=== PATIENT | male | born 1955 | race Caucasian/White ===

== ENCOUNTER 2019-03-16 13:13 | Inpatient (IN) | payer MEDICARE ==
--- NOTE | ~2019-03-16 | HEMODYNAMI ---
PATIENT:REED COX MEDICAL RECORD: [id number] : 55 LOCATION:[facility] D.2126 ADMISSION DATE: 03/16/19 Generatedon:03/21/20199:46 Patient name: REED COX Patient #: [id number] SSN: D OB: 1955 Date of study: 03/21/2019 Page: Of Hemodynamic Procedure Report Patient Data Patient Demographics Procedure consent was obtained First Name: REED Gender: Male Last Name: KENNY : 1955 Middle Initial: PRATIMA Age: 63 year(s) Patient #: [id number] Race: Unknown Additional ID: [id number] Contact details [address]: [address] [place] [address] [place] State: [place] City: [place] Zip code: [address] Admission Admission Data Admission Date: 03/16/2019 Admission Time: 13:13 Room #: D.2126 Weight (lbs.): 363.76 Weight (kg.): 165 Lab Results Lab Result Date: 03/21/2019 Lab Result Time: 0:00 Biochemistry Name Units Result Min Max BUN mg/dl 19 --(----)*- 7 18 Creatinine mg/dl 1.1 --(--*-)-- 0.6 1.3 CBC Name Units Result Min Max Hemoglobin g/dl 13.9 --(*---)-- 13.5 17.5 Procedure Procedure Types Cath Procedure Diagnostic Procedure LHC LHC w/Coronaries w/Grafts Procedure Description Procedure Date Procedure Date: 03/21/2019 Procedure Start Time: 9:25 Procedure End Time: 9:43 Procedure Staff Name Function Dylan Quigley MD Performing Physician Kashmir Ho RT Monitor Gilmar Black RN Nurse Rajinder Enrique RN Nurse Israel Koroma RT Scrub Procedure Data Cath Procedure Fluoroscopy Diagnostic fluoroscopy Total fluoroscopy Time: 5.2 time: 5.2 min min Diagnostic fluoroscopy Total fluoroscopy dose: dose: 1411 mGy 1411 mGy Contrast Material Contrast Material Type Amount (ml) Isovue 300 138 Entry Location Entry Primary Successful Side Size Upsize Upsize Entry Closure Succes sful Closure Location (Fr) 1 (Fr) 2 (Fr) Remarks Device Remarks Femoral Right 5 Fr Exoseal artery Estimated blood loss: 10 ml Diagnostic catheters Device Type Used For End Catheter Placement DIAGNOSTIC JL 4.0 5Fr Procedure catheter ([id number]) DIAGNOSTIC AR MOD 5Fr Procedure Catheter ([id number]) DIAGNOSTIC IM 5Fr Procedure catheter ([id number]) DIAGNOSTIC Pigtail 5Fr Procedure catheter ([id number]) Procedure Complications No complications Procedure Medications Medication Administration Route Dosage 0.9% NaCl I.V. 100 ml/hr Oxygen etCO2 Nasal cannula 2 l/min Heparin Flush Bag added to field 2 bags (1000units/500ml NS) Lidocaine 2% added to field 20 Versed I.V. 2 mg Fentanyl I.V. 100 mcg Hemodynamics Rest HGB: 13.9 (g/dl) Heart Rate: 61 (bpm) Pressure Samples Time Site Value (mmHg) Purpose Heart Use Rate(bpm) 9:35 AO 115/65(86) Snapshot 61 9:39 LV 128/12,36 Snapshot 61 Gradients Valve Time Site Site Mean SEP/DFP Peak To Heart Use 1 2 (mmHg) (sec/min) Peak Rate (mmHg) (bpm) Aortic 9:40 LV AO 61 Snapshots Pre Cath Intra NCS Post Cath Vital Signs Time Heart Resp SPO2 etCO2 NIBP (mmHg) Rhythm Pain Sedation Rate (ipm) (%) (mmHg) Status Level (bpm) 9:12:50 61 21 92 0 140/75(115) NSR 0 (11) 10(A) , No pain 9:17:18 61 19 91 0 125/71(108) NSR 0 (11) 10(A) , No pain 9:21:40 60 16 90 0 112/67(90) NSR 0 (11) 10(A) , No pain 9:25:58 60 14 89 0 113/65(85) NSR 0 (11) 10(A) , No pain 9:30:16 61 16 90 0 117/68(92) NSR 0 (11) 9(A) , No pain 9:34:37 61 21 91 0 122/69(94) NSR 0 (11) 9(A) , No pain 9:38:58 61 15 91 0 122/69(94) NSR 0 (11) 9(A) , No pain 9:43:19 61 18 91 0 125/71(103) NSR 0 (11) 10(A) , No pain Medications Time Medication Route Dose Verified Delivered Reason Notes Effe ctiveness by by 9:13:57 0.9% NaCl I.V. 100 Rajinder Rajinder Per ml/hr Iva Enrique physician RN RN 9:14:07 Oxygen etCO2 2 Rajinder Rajinder for low 02 Nasal l/min Lorigan Lorigan sats cannula RN RN 9:14:23 Heparin Flush added 2 Rajinder Rajinder used for Bag to bags Lorigan Lorigan procedure (1000units/500ml field RN RN NS) 9:14:47 Lidocaine 2% added 20ml Rajinder Rajinder for local to vial Lorigan Lorigan anesthetic field RN RN 9:19:22 Versed I.V. 2 mg Rajinder Rajinder for Lorigan Lorigan sedation RN RN 9:19:30 Fentanyl I.V. 100 Rajinder Rajinder for mcg Lorigan Lorigan sedation RN ammunition assembly ii laborer Log Time Note 8:45:54 Kashmir Ho RT(R) sent for patient. Start room use. 9:01:55 Time tracking: Regular hours (M-F 7:00 - 5:00) 9:01:59 Plan of Care:Hemodynamics will remain stable., Cardiac rhythm will remain stable., Comfort level will be maintained., Respiratory function will remain adequate., Patient/ family verbilizes understanding of procedure., Procedure tolerated without complication., Recovers from procedure without complications.. 9:02:26 Patient received from PCU to CCL 2 Alert and oriented. Tansferred to table in Supine position. 9:02:28 Warm blankets applied, and zoya hugger turned on for patient comfort. 9:02:28 Correct patient and procedure confirmed by team. 9::29 Signed procedure consent form obtained from patient. 9:02:30 ECG and BP/O2 sat monitors applied to patient. 9:11:29 Vital chart was started 9:11:30 Baseline sample Acquired. 9:12:06 Rhythm: sinus rhythm 9:12:08 Full Disclosure recording started 9:12:30 H&P Date Dictated: 03/21/2019 Within 30 days and on chart., H&P Addendum completed by physician on day of procedure. (MUST COMPLETE FOR ALL OUTPATIENTS). 9:12:31 Pre-procedure instructions explained to patient. 9:12:32 Pre-op teaching completed and patient verbalized understanding. 9:12:34 Family in patients room. 9:12:37 Patient NPO since Midnight. 9:12:38 Is the patient allergic to Iodine/contrast media? No. 9:12:41 Is patient on blood thinner?No 9:12:43 Patient diabetic? Yes. 9:12:44 If diabetic: On Metformin? No 9:12:47 Previous problem with sedation/anesthesia? No ? 9:12:48 Snore? Yes 9:12:49 Sleep apnea? Yes 9:12:50 Deviated septum? No 9:12:51 Opens mouth fully? Yes 9:12:52 Sticks out tongue? Yes 9:12:53 Airway obstruction? No ? 9:12:55 Dentures? No ? 9:12:59 Pre procedure: right dorsailis pedis pulse 1+ Palpable, but thready & weak; easily obliterated 9:13:01 Patient pain scale 0/10 ?. 9:13:04 IV patent on arrival in right forearm with 0.9% NaCl at [facility]. 9:13:07 Lab results completed and on chart. 9:13:11 Right groin area was prepped with chlora-prep and draped in sterile fashion 9:13:12 Alarms reviewed by R. N. 9:13:12 Sharps counted by scrub and verified by R.N. 9:13:57 0.9% NaCl 100 ml/hr I.V. was administered by Rajinder Enrique RN; Per physician; 9:14:07 Oxygen 2 l/min etCO2 Nasal cannula was administered by Rajinder Enrique RN; for low 02 sats; 9:14:16 Patient Weight : 363.76 lbs 9:14:23 Heparin Flush Bag (1000units/500ml NS) 2 bags added to field was administered by Rajinder Enrique RN; used for procedure; 9:14:47 Lidocaine 2% 20ml vial added to field was administered by Rajinder Enrique RN; for local anesthetic; 9:14:50 Lab Result : BUN 19 mg/dl 9:14:50 Lab Result : Hemoglobin 13.9 g/dl 9:14:50 Lab Result : Creatinine 1.1 mg/dl 9:16:32 Use device set Femoral Dx 9:16:34 Tegaderm 4 x 4 (1626W) opened to sterile field. 9:16:35 ACIST Manifold (39621) opened to sterile field. 9:16:35 ACIST Hand Control (53697) opened to sterile field. 9:16:37 ACIST Syringe (19649) opened to sterile field. 9:16:37 Bag Decanter (2002S) opened to sterile field. 9:16:37 Medline Cath Pack ([id number]) opened to sterile field. 9:16:38 DIAGNOSTIC WIRE .035 260cm J wire (324586) opened to sterile field. 9:16:41 SHEATH 5FR [place] (HDQ072) opened to sterile field. 9:18:52 --------ALL STOP TIME OUT------ 9:18:53 Final Timeout: patient, procedure, and site verified with staff and physician. All members of the team are in agreement. 9:18:55 Right groin site verified by team. 9:18:58 Maximum allowable Isovue 300 dose 300ml. Physician notified. (300ml for normal creatinines. For patients with creatinine of 1.7 or higher multiply weight(kg) x 5 divided by creatinine.) 9:19:02 Fire Safety Assessment: A--An alcohol-based skin anteseptic being used preoperatively., C--Open oxygen or nitrous oxide is being used., D--An ESU, laser, or fiber-optic light is being used. 9:19:05 Physical assessment completed. ASA score P 2 - A patient with mild systemic disease as per Dylan Quigley MD. 9:19:09 Sedation plan: IV Moderate Sedation Medication:Versed, Fentanyl 9:19:22 Versed 2 mg I.V. was administered by Rajinder Enrique RN; for sedation; 9:19:30 Fentanyl 100 mcg I.V. was administered by Rajinder Enrique RN; for sedation; 9:25:25 Procedure started. 9:25:28 Local anesthetic to right femoral artery with Lidocaine 2% by Dylan Quigley MD.INITIAL ACCESS ONLY 9:25:31 Zero performed for pressure channel P1 9:27:52 A 5 Fr sheath was inserted into the Right Femoral artery 9:28:04 A DIAGNOSTIC JL 4.0 5Fr catheter ([id number]) was advanced over the wire and used for Procedure. 9:28:30 LCA angiography performed. 9:29:31 Catheter exchanged over wire. 9:29:40 A DIAGNOSTIC AR MOD 5Fr Catheter ([id number]) was advanced over the wire and used for Procedure. 9:31:24 RCA angiography performed. 9:31:26 SVG to RCA angiography performed. 9:32:19 SVG to Circ angiography performed. 9:32:59 Catheter exchanged over wire. 9:33:04 A DIAGNOSTIC IM 5Fr catheter ([id number]) was advanced over the wire and used for Procedure. 9:35:03 GLIDE WIRE ANGLE 260cm (BD5793) opened to sterile field. 9:35:31 Glidewire used to advance catheter. 9:35:47 SMART to LAD angiography performed. 9:38:56 Catheter exchanged over wire. 9:39:02 A DIAGNOSTIC Pigtail 5Fr catheter ([id number]) was advanced over the wire and used for Procedure. 9:39:50 LV angiography performed. 9:39:51 LV gram done using MCDANIELS 9:40:08 EF : 35 % 9:40:35 LV hemodynamics recorded. 9:40:38 Injector settings: Ml/sec: 10, Volume: 20, 9:41:16 Catheter removed. 9:41:17 EXOSEAL 5Fr (EX500) opened to sterile field. 9:41:28 Sheath removed intact; hemostasis achieved with Exoseal to the Right Femoral artery. 9:41:31 Procedure ended.(Physican Out) 9:41:42 Fluoroscopy time 05.20 minutes. 9:41:46 Fluoroscopy dose: 1411 mGy 9:41:46 Flurop Dose total: 1411 9:41:50 Contrast amount:Isovue 300 138ml. 9:42:41 Sharps counted by scrub and verified by R.N. 9:42:42 Insertion/operative site no bleeding no hematoma. 9:42:46 Post-op/insertion site Right Femoral artery dressed using a 4 x 4 and Tegaderm. 9:42:47 Post Procedure Pulses reassessed and unchanged 9:42:50 Post-procedure physical assessment completed. ASA score P 2 - A patient with mild systemic disease as per Dylan Quigley MD. 9:42:53 Post procedure rhythm: unchanged. 9:42:55 Estimated blood loss: 10 ml 9:42:57 Post procedure instruction explained to patient.Patient verbalizes understanding. 9:42:57 Patient needs reinforcement of post procedure teaching. 9:43:04 Procedure and supply charges have been captured, reviewed, submitted and are correct. 9:43:06 Procedure Complication : No complications 9:43:27 Vital chart was stopped 9:43:27 See physician's report for complete and final results. 9:43:31 Report given to PCU. 9:43:33 Patient transfered to PCU with Bed. 9:43:35 Procedure ended. 9:43:35 Full Disclosure recording stopped 9:45:34 End room use (Document Last) Device Usage Item Name Manufacture Quantity Catalog Hospital Part Current Minimal L ot# / Number Charge Number Stock Stock Serial# Code Tegaderm 4 3M 1 1626W 523607 687739 289025 5 x 4 (1626W) ACIST Acist 1 97845 734314 400330 593035 5 Manifold Medical (00674) Systems Inc ACIST Hand Acist 1 17721 528159 023494 244624 5 Control Medical (47855) Systems Inc ACIST Acist 1 18826 893252 338430 415567 20 Syringe Medical (05205) Systems Inc Bag Microtek 1 2001S 635857 26391 644059 5 Decanter Medical Inc. () Medline Medline 1 [id number] 511720 05048 169638 5 Cath Pack ([id number]) DIAGNOSTIC St Miles 1 192276 234150 881735 525453 30 WIRE .035 260cm J wire (051696) SHEATH 5FR Terumo 1 CTX157 041170 886873 555990 5 [place] (PWY465) DIAGNOSTIC Cardinal 1 377875F 527147 470242 267652 10 JL 4.0 5Fr Health catheter (862580E) DIAGNOSTIC Cardinal 1 875385H 801160 725269 824953 15 AR MOD 5Fr Health Catheter (234170R) DIAGNOSTIC Cardinal 1 544162O 426544 381806 353577 5 IM 5Fr Health catheter (452965C) GLIDE WIRE Terumo 1 DE4406 838670 275121 227336 5 ANGLE 260cm (GL0502) DIAGNOSTIC Cardinal 1 093732H 474273 263122 414048 5 Pigtail 5Fr Health catheter (751159I) EXOSEAL 5Fr Cardinal 1 EX500 843608 864550 477562 10 (EX500) Health Signature Audit [place] Stage Time Signature Unsigned Intra-Procedure 03/21/2019 Kashmir Ho 9:46:06 AM RT(R) Signatures Monitor : Kashmir Ho RT Signature : Date : Time : [address] [place] [address]
--- NOTE | ~2019-03-16 | HEMODYNAMI ---
PATIENT:REED COX MEDICAL RECORD: [id number] : 55 LOCATION:[facility].2126 ADMISSION DATE: 03/16/19 Generatedon:03/17/201910:29 Patient name: REED COX Patient #: [id number] SSN: : 1955 Date of study: Page: Of Hemodynamic Procedure Report Patient Data Patient Demographics Procedure consent was obtained First Name: REED Gender: Male Last Name: KENNY : 1955 [facility] Initial: PRATIMA Age: 63 year(s) Patient #: [id number] Race: Unknown Additional ID: [id number] Contact details Address: [address] [place] [address] [place] State: [place] City: [place] Zip code: [address] Admission Admission Data Admission Date: 03/16/2019 Admission Time: 13:13 Room #: D.2126 Procedure Procedure Types Cath Procedure Diagnostic Procedure LHC LHC w/Coronaries Procedure Description Procedure Staff Name Function Dylan Quigley MD Performing Physician Kashmir Ho RT Monitor Latisha Rocha RT Scrub Gayla Powell RN Nurse Hemodynamics Rest Pre Cath Intra NCS Post Cath Procedure Log Time Note 9:53:32 Signed procedure consent form obtained from patient. 9:53:35 Diagnostic Cath status Urgent 9:53:36 Time tracking: Regular hours (M-F 7:00 - 5:00) 9:53:42 Plan of Care:Hemodynamics will remain stable., Cardiac rhythm will remain stable., Comfort level will be maintained., Respiratory function will remain adequate., Patient/ family verbilizes understanding of procedure., Procedure tolerated without complication., Recovers from procedure without complications.. 9:54:28 Latisha Rocha RT(R) sent for patient. Start room use. 10:29:28 PATIENT CANCELLED UNTIL FURTHER NOTICE. Signature Audit [place] Stage Time Signature Unsigned Intra-Procedure 03/17/2019 Latisha Rocha 10:29:38 AM RT(R) Signatures Monitor : Kashmir Ho RT Signature : Date : Time : [address] [address]
--- NOTE | 2019-03-16 13:31 | NUR ---
DIRECT ADMIT FROM DR PANIAGUA OFFICE DUE TO INCREASING SHORTNESS OF BREATH, CXR RESULT IN OFFICE SHOWED PULMONARY EDEMA. HE WAS SHORT OF BREATH UPON ENTERING THE ROOM DUE TO AMBULATING. HIS IS WITH HIM. HE IS ALERT AND ABLE TO ANSWER ALL QUESTIONS. O2 AT 2L PER MINUTE WAS PLACED ON HIM DUE TO SYMPTOMS AND O2 SAT OF 93% ON ROOM AIR. NON-SKID SOCKS PLACED ON HIM BUT HE DOES REFUSE THE SCD'S. ORIENT TO USE OF CL. BBS ARE DIMINISHED WITH SOME EXP. WHEEZES AT TIMES. DR RODRIGUEZ CAME BY TO SEE HIM.
[2019-03-16 14:00] VITALS: BP 180/98; BMI 51.5
--- NOTE | 2019-03-16 14:00 | NUR ---
PLACED ON TELEMENTRY WITH NORMAL SINUS RHYTHM IN 70'S. IV STARTED IN TOP OF RIGHT HAND WITH 20 GUAGE X1 STICK FLUSHES WELL WITH GOOD BLOOD RETURN NOTED AND TOLERATED WELL. HE IS COUGHING SOME BUT SHORTNESS OF BREATH HAS IMPROVED AND IS CURRENTLY EATING A MEAL.
[2019-03-16 14:29] LABS: BASOPHILS 0.5 % (0-2); EOSINOPHILS 3.4 % (0-7); HEMATOCRIT 41.9 % (42.0-54.0); HEMOGLOBIN 14.1 g/dL (13.5-17.5); IMMATURE GRANULOCYTES 0.3 % (0-5); LYMPHOCYTES 17.8 % (15-50); MCHC 33.7 g/dL (31.0-37.0); MONOCYTES 5.9 % (2-11); NEUTROPHILS 72.1 % (40-80); PLATELET COUNT 146 10x3/uL (130-400); RBC 4.03 10x6/uL (4.20-6.10); RDW 16.6 % (11.5-14.5); WBC 5.8 10x3/uL (4.8-10.8)
[2019-03-16 14:44] LABS: ALBUMIN 3.4 g/dL (3.4-5.0); ALKALINE PHOSPHATASE 66 U/L (46-116); ALT (SGPT) 41 U/L (10-68); BILIRUBIN - TOTAL 0.62 mg/dL (0.2-1.3); CALC OSMOLALITY 282 mosm/kg (275-300); CALCIUM 8.3 mg/dL (8.5-10.1); CARBON DIOXIDE 23.7 mmol/L (21.0-32.0); CHLORIDE - SERUM 107 mmol/L (98-107); CREATININE - SERUM 1.1 mg/dL (0.6-1.3); GLUCOSE 103 mg/dL (74-106); POTASSIUM - SERUM 3.5 mmol/L (3.5-5.1); PRO BNP 730 pg/mL (0-125); PROTEIN - SERUM 6.9 g/dL (6.4-8.2); SODIUM 142 mmol/L (136-145); UREA NITROGEN 12 mg/dL (7-18); eGFR NON AFRICAN AMERICAN 72 mL/min (90-120)
[2019-03-16 14:45] LABS: TROPONIN-I < 0.017 ng/mL (0.000-0.060)
[2019-03-16] MEDS ORDERED: KLONOPIN0.5 MG PO (15:21)
[2019-03-16] MEDS ORDERED: BUMEX2 MG PO (15:22)
[2019-03-16 16:13] VITALS: BP 135/68
[2019-03-16] MEDS ORDERED: LYRICA150 MG PO (16:44)
[2019-03-16] MEDS ORDERED: COREG25 MG PO (16:45)
[2019-03-16] MEDS ORDERED: PLAVIX75 MG PO (16:46)
[2019-03-16] MEDS ORDERED: ZOLOFT25 MG PO (16:46)
[2019-03-16] MEDS ORDERED: AMIODARONE HCL200 MG PO (16:47)
[2019-03-16] MEDS ORDERED: GLUCOTROL 5 MG T5 MG PO (16:47)
[2019-03-16] MEDS ORDERED: LISINOPRIL-HCT1 EAC4 PO (16:49)
[2019-03-16] MEDS ORDERED: OMEPRAZOLE40 MG PO (16:49)
[2019-03-16] MEDS ORDERED: LIPITOR40 MG PO (16:50)
[2019-03-16] MEDS ORDERED: TYLENOL W/CODEI1 TAB PO (16:59)
[2019-03-16] MEDS ORDERED: ASPIRIN81 MG PO (17:00)
[2019-03-16] MEDS ORDERED: BUTALB-APAP-CA1 EACH PO (17:01)
[2019-03-16] MEDS ORDERED: POTASSIUM99 M1 PO (17:03)
--- NOTE | 2019-03-16 19:10 | NUR ---
PT LAYING IN BED. AAO. HAS O2 AT 2L FOR DYSPNEA. PT STATES IT IS NOT BAD UNLESS HE MOVES. PT HAS NO S/S OF DISTRESS. DENIES ANY NEEDS. NAME AND DATE PLACED ON BOARD. PT WILL CALL FOR ASSIST WHEN NEEDED. WILL CPOC
[2019-03-16 21:27] VITALS: BP 179/81
[2019-03-16 23:26] VITALS: BP 171/86
--- NOTE | 2019-03-17 02:46 | NUR ---
PT ASLEEP, RESP EVEN AND UNLABORED. 2L O2 NC. NO S/S OF DISTRESS. WILL CPOC
--- NOTE | 2019-03-17 05:06 | NUR ---
PT O2 SAT IS 86 ON 2L, INCREASED TO 4L O2 [address] CORTES AND INFORMED OF PT STATUS DR ORDERED DUONEB Q4H PRN. INFORMED OF HYPERTENSION AND INCREASED WHEEZES IN LUNGS. STATED NO ORDER FOR HTN OR WHEEZES. INFORMED DR CORTES OF D DIMER RESULT. ONLY ORDER RECEIVED DUONEB. PLACED ORDER AND CALLED RESP
--- NOTE | 2019-03-17 05:09 | NUR ---
PT ON 6L HIGH FLOW AT 94% PT NOW SITTING ON SIDE OF BED. WAITING FOR RESP.
[2019-03-17 05:32] VITALS: BP 198/104
--- NOTE | 2019-03-17 07:40 | NUR ---
ASSESSMENT COMPLETED. ALERT AND ORIENTED.TELEMERTY SHOWS ST.DENIES ANY PAIN. O2 AT 6 L/M PER KECIA FLOW METER. RIGHT HAND SL. PT HAS TATE TO LOWER LEGS AND FEET. C/O SOME SOB. FOR CATH TODAY
[2019-03-17 08:02] LABS: BASOPHILS 0.2 % (0-2); EOSINOPHILS 1.3 % (0-7); HEMATOCRIT 43.4 % (42.0-54.0); HEMOGLOBIN 14.8 g/dL (13.5-17.5); IMMATURE GRANULOCYTES 0.3 % (0-5); LYMPHOCYTES 7.8 % (15-50); MCH 35.5 pg (26.0-34.0); MCHC 34.1 g/dL (31.0-37.0); MCV 104.1 fL (80.0-100.0); MEAN PLATELET VOLUME 10.7 fL (7.4-10.4); MONOCYTES 5.3 % (2-11); NEUTROPHILS 85.1 % (40-80); PLATELET COUNT 150 10x3/uL (130-400); RBC 4.17 10x6/uL (4.20-6.10); RDW 16.7 % (11.5-14.5)
[2019-03-17 08:09] LABS: ANION GAP 12.3 mmol/L (8-16); CALCIUM 8.5 mg/dL (8.5-10.1); CARBON DIOXIDE 28.2 mmol/L (21.0-32.0); CREATININE - SERUM 1.2 mg/dL (0.6-1.3); POTASSIUM - SERUM 3.5 mmol/L (3.5-5.1)
[2019-03-17 08:22] LABS: WBC 9.5 10x3/uL (4.8-10.8)
[2019-03-17 09:31] VITALS: BP 179/96
[2019-03-17 10:45] VITALS: BMI 50.5
[2019-03-17 10:48] VITALS: BMI 51.5
[2019-03-17 11:04] LABS: % SATURATION 18 % (15-55); IRON 82 ug/dl (35-150); TOTAL IRON BIND CAPACITY 454 ug/dl (260-445); UNSAT IRON BIND CAPACITY 372 ug/dl (150-375)
--- NOTE | 2019-03-17 12:47 | NUR ---
CATH CANCELLED, PT STARTED ON DOBUTAMINE.
[2019-03-17 12:50] VITALS: BP 176/98
--- NOTE | 2019-03-17 13:16 | NUR ---
VOIDED 900 CC URINE. STATES HE IS FEELING BETTER. RESP REG AND LESS LABORED
--- NOTE | 2019-03-17 14:38 | NUR ---
I CONCUR WITH ASSESSMENT OF THE HANDBELL CHOIR DIRECTOR.
--- NOTE | 2019-03-17 16:36 | MORECARE ---
CASE MANAGEMENT DISCHARGE SUMMARY PATIENT: REED PATEL PRATIMA UNIT: [id number] ADM DATE: 03/16/19 AGE: 63 : 55 SEX: M ROOM/BED: D.2126 AUTHOR: SIOBHAN ABREU PHYSICIAN: REFERRING PHYSICIAN: JUAN DURAN MD DATE OF SERVICE: 03/17/19 Discharge Plan Patient Name: REED PATEL [facility] : 1955 Planned Disposition: Home Anticipated Discharge Date: Discharge Date: Expected LOS: Initial Reviewer: [email or web address] Initial Review Date: 03/16/2019 Generated: 03/17/19 5:36 pm DCPIA - Discharge Planning Initial Assessment Updated by [email or web address]: Geraldine Gilmore on 03/17/19 4:32 pm * Is the patient Alert and Oriented? Yes * How many steps to enter\exit or inside your home? ramp * PCP DR Patton * Pharmacy [facility] * Preadmission Environment Home with Family * ADLs Independent * Equipment Glucometer Shower Chair * Other Equipment Denies any additional DME * List name and contact numbers for known caregivers / representatives who currently or will assist patient after discharge: Olga Patel - spouse- [phone] * Verbal permission to speak to the caregivers and representatives has been obtained from the patient. Yes * Community resources currently utilized None * Please name any agencies selected above. N/A * Additional services required to return to the preadmission environment? No * Can the patient safely return to the preadmission environment? Yes * Has this patient been hospitalized within the prior 30 days at any hospital? No Patient Name: REED PATEL Page [id number] at 1636 All edits/amendments must be made on the electronic document DICTATION DATE: 03/17/19 1635 SKIDDER LEVER OPERATOR: JAKE 03/17/19 1635 RPT#: [id number] DC DATE: STATUS: ADM IN [facility] [address] [place] [address] END OF REPORT
--- NOTE | 2019-03-17 16:59 | MORECARE ---
CASE MANAGEMENT DISCHARGE SUMMARY PATIENT: REED PATEL UNIT: [id number] ADM DATE: 03/16/19 AGE: 63 : 55 SEX: M ROOM/BED: D.4704 AUTHOR: LOIS,DOC PHYSICIAN: REFERRING PHYSICIAN: JUAN DURAN MD DATE OF SERVICE: 03/17/19 Discharge Plan Patient Name: REED PATEL Facility: [facility]:[place] : 1955 Planned Disposition: Home Anticipated Discharge Date: Discharge Date: Expected LOS: Initial Reviewer: [email or web address] Initial Review Date: 03/16/2019 Generated: 03/17/19 5:59 pm Comments DCP- Discharge Planning Updated by [email or web address]: Geraldine Gilmore on 03/17/19 3:[address] CM met with the patient and his at the bedside. The patient gave permission for CM to speak with his , Olga Patel, and with young visitors present. He identified them as family. CM explained my role. Discussed care and providers for home health, acute rehab and skilled care. The patient is on 9/ L for nasal oxygen. He is not on oxygen at home. He has a glucometer that he uses occasionally. A shower chair is available if needed. He will ambulate with a "stick" sometimes. Denies any additional DME. They plan to return to home at discharge. Denies any need for services. CM explained Shawn, the unit nurse outreach case manager, is available to assist if they have a need or change their minds. CM also discussed how to obtain services post discharge. There is a ramp to enter patient's home or 3 steps w/ railing. states patient normally utilizes the ramp. reports the patient does have a HX of frequent falls. Patient does have an emergency call system if needed. He denies any hospitalizations within the last 30 days. PCP- DR Patton Corrosion Engineer- DR Howard B/P 198/104 - 176/98 , O2 sat range 86% - 92%. Presently on oxygen 9/ L. Per MD notes patient has CPAP at home. Started on Dobutamine for afterload. He is also on Lasix IV q12h. CM discussed accurate I/O monitoring with primary nurse , Brittani. She will discuss in report. She has measured his output. DCPIA - Discharge Planning Initial Assessment Updated by [email or web address]: Geraldine Gilmore on 03/17/19 4:32 pm * Is the patient Alert and Oriented? Yes * How many steps to enter\\exit or inside your home? ramp * PCP DR Patton * Pharmacy [facility] * Preadmission Environment Home with Family * ADLs Independent * Equipment Glucometer Shower Chair * Other Equipment Denies any additional DME * List name and contact numbers for known caregivers / representatives who currently or will assist patient after discharge: Olga Patel - spouse- [phone] * Verbal permission to speak to the caregivers and representatives has been obtained from the patient. Yes * Community resources currently utilized None * Please name any agencies selected above. N/A * Additional services required to return to the preadmission environment? No * Can the patient safely return to the preadmission environment? Yes * Has this patient been hospitalized within the prior 30 days at any hospital? No Last DP export: 03/17/19 3:36 pm Patient Name: REED PATEL Page 26501 at 1659 All edits/amendments must be made on the electronic document DICTATION DATE: 03/17/191658 COST RECOVERY TECHNICIAN: JKAE 03/17/191658 RPT#: [id number] DC DATE: STATUS: ADM IN [facility] [address] [place] [address] END OF REPORT
[2019-03-17 17:18] VITALS: BP 170/83
--- NOTE | 2019-03-17 19:10 | NUR ---
BEDSIDE REPORT RECEIVED. PT RESTING IN BED WATCHING TV. PT DENIES ANY NEEDS. NO S/S OF DISTRESS. NAME AND DATE PLACED ON BOARD. 9L HIGH FLOW NC. DOBUTAMINE INFUSING ORDERED AT 26.1 (5MCG/KG/HOUR) PT WILL CALL FOR ASSIST WHEN NEEDED. BEDLOW AND CALL LIGHT IN REACH. WILL CPOC
[2019-03-17 20:00] VITALS: BP 147/78
--- NOTE | 2019-03-17 20:59 | NUR ---
NIGHT MEDS GIVEN. PT VERBALIZED UNDERSTANDING OF ALL MEDICATIONS. TOLD PT TO URINATE IN URINAL. HE STATES HE HAS TO URINATE IN TOILET. WILL ATTEMPT TO COLLECT WITH A HAT. PT V ERBALIZED UNDERSTANDING OF NEED FOR UA. CUP AT BEDSIDE. PT STATES WILL CALL WHEN COLLECTED. DOBUTAMINE INFUSING ORDERED TO RIGHT HAND. PT HAS NO S/S OF DISTRESS. 9L HIGH FLOW NC. PT WILL CALL FOR ASSIST WHEN NEEDED. WILL CPOC
[2019-03-18] VITALS: BP 120/68
[2019-03-18 00:39] LABS: APPEARANCE CLEAR (CLEAR); BILIRUBIN NEGATIVE (NEGATIVE); COLOR YELLOW (YELLOW); GLUCOSE NEGATIVE (NEGATIVE); KETONE NEGATIVE (NEGATIVE); NITRITE NEGATIVE (NEGATIVE); PROTEIN NEGATIVE (NEGATIVE); UROBILINOGEN NORMAL (NORMAL)
[2019-03-18 04:30] VITALS: BP 139/97
--- NOTE | 2019-03-18 04:31 | NUR ---
I have reviewed this patient and I concur with the Shift Assessment completed by the Licensed Practical Nurse today this shift.
[2019-03-18 06:15] LABS: BASOPHILS 0.3 % (0-2); EOSINOPHILS 2.1 % (0-7); HEMATOCRIT 40.7 % (42.0-54.0); HEMOGLOBIN 13.5 g/dL (13.5-17.5); IMMATURE GRANULOCYTES 0.3 % (0-5); LYMPHOCYTES 11.8 % (15-50); MCH 34.6 pg (26.0-34.0); MCHC 33.2 g/dL (31.0-37.0); MCV 104.4 fL (80.0-100.0); MEAN PLATELET VOLUME 10.9 fL (7.4-10.4); MONOCYTES 6.3 % (2-11); NEUTROPHILS 79.2 % (40-80); PLATELET COUNT 147 10x3/uL (130-400); RDW 16.7 % (11.5-14.5); WBC 7.7 10x3/uL (4.8-10.8)
--- NOTE | 2019-03-18 06:29 | NUR ---
LOVENOX GIVEN ORDERED. DOBUTAMINE INFUSING ORDERED. PT ON CPAP 9L O2 96% PT DENIES ANY NEEDS. PT WILL CALL FOR ASSIST WHEN NEEDED. WILL CPOC
[2019-03-18 06:54] LABS: ALBUMIN 3.1 g/dL (3.4-5.0); ANION GAP 11.5 mmol/L (8-16); BILIRUBIN - TOTAL 1.77 mg/dL (0.2-1.3); CALCIUM 8.2 mg/dL (8.5-10.1); CARBON DIOXIDE 31.8 mmol/L (21.0-32.0); CREATININE - SERUM 1.2 mg/dL (0.6-1.3); POTASSIUM - SERUM 3.3 mmol/L (3.5-5.1); PROTEIN - SERUM 6.8 g/dL (6.4-8.2)
--- NOTE | 2019-03-18 07:40 | NUR ---
MORNING ROUNDS MADE. PT LAYING IN BED RESTING COMFORTABLY WITH BIPAP ON. R HAND IV WITH DOBUTAMINE DRIP @ 26.1 ML/HR. R AC IV SL. VICKY IV PATENT, NO REDNESS OR EDEMA NOTED TO EITHER. BLE GENERALIZED EDEMA NOTED. NORMAL SINUS ON TELE. NO SIGNS OF DISCOMFORT THIS AM. BREATHING EVEN AND UNLABORED. NO FURTHER CONCERNS AT THIS TIME. FALL PRECAUTIONS IN PLACE. BED LOWERED AND LOCKED. CL IN REACH. SR UP X 2. WILL CTM.
[2019-03-18 09:40] VITALS: BP 169/86
--- NOTE | 2019-03-18 09:55 | NUR ---
PT SAT UP TO SIDE OF BED. VITALS STABLE. TOOK MEDS WITHOUT DIFFICULTY. PT WT THIS AM 169 KG. DOBUTAMINE DRIP AJUSTED TO 25.4 ML/HR. 9L O2 VIA HIGH FLOW NC NOTED. FAMILY AT BEDSIDE. PT EATING BREAKFAST AT THIS TIME. R HAND IV PATENT, NO REDNESS OR EDEMA NOTED, R AC IV SL, NO REDNESS OR EDEMA NOTED. FALL PRECAUTIONS IN PLACE. NON SKID SOCKS ON. BED LOWERED AND LOCKED. CL IN REACH. SR UP X 2. FAMILY AT BEDSIDE. WILL CTM.
[2019-03-18 13:14] VITALS: BP 129/66
--- NOTE | 2019-03-18 14:03 | NUR ---
I have reviewed this patient and I concur with the Shift Assessment completed by the Licensed Practical Nurse today this shift.
--- NOTE | 2019-03-18 14:04 | NUR ---
I have reviewed this patient and I concur with the Shift Assessment completed by the Licensed Practical Nurse today this shift.
[2019-03-18 15:11] LABS: FOLATE (FOLIC ACID) - SERUM 2.1 ng/mL (>3.0)
--- NOTE | 2019-03-18 16:09 | NUR ---
PT TO CT VIA BED
--- NOTE | 2019-03-18 16:19 | NUR ---
PT BACK TO ROOM FROM CT VIA BED
[2019-03-18 17:45] VITALS: BP 137/62
--- NOTE | 2019-03-18 18:37 | NUR ---
PT LAYING IN BED RESTING. DENIES PAIN AT THIS TIME. 9L O2 VIA HIGH FLOW NC. IV TO R HAND PATENT, NO REDNESS OR EDEMA NOTED. NO FURTHER CONCERNS AT THIS TIME. FALL PRECAUTIONS IN PLACE. BED LOWERED AND LOCKED. CL IN REACH. WILL CTM.
--- NOTE | 2019-03-18 19:53 | NUR ---
PT RESTING IN BED WITH ALERT AND ORIENTED. VITALS STABLE. PT RUNNING 67 SINUS RYTHEM ON TELE PER MERCHANDISE SUPPORT ASSOCIATE. NO S/S OF DISTRESS. PT DENIES ANY PAIN OR NEEDS AT THIS TIME. BED LOW CALL LIGHT WITHIN REACH. WILL CONTINUE TO MONITOR.
[2019-03-18 20:00] VITALS: BP 139/69
[2019-03-19] VITALS (7 sets, daily range): BP systolic 108–142; BP diastolic 53–72
--- NOTE | 2019-03-19 03:32 | NUR ---
I have reviewed this patient and I concur with the Shift Assessment completed by the Licensed Practical Nurse today this shift.
[2019-03-19 04:43] LABS: BASOPHILS 0.6 % (0-2); EOSINOPHILS 3.1 % (0-7); HEMATOCRIT 40.6 % (42.0-54.0); HEMOGLOBIN 13.8 g/dL (13.5-17.5); IMMATURE GRANULOCYTES 0.1 % (0-5); LYMPHOCYTES 10.8 % (15-50); MCH 35.3 pg (26.0-34.0); MCV 103.8 fL (80.0-100.0); MEAN PLATELET VOLUME 10.9 fL (7.4-10.4); MONOCYTES 6.8 % (2-11); NEUTROPHILS 78.6 % (40-80); PLATELET COUNT 142 10x3/uL (130-400); RBC 3.91 10x6/uL (4.20-6.10); RDW 16.6 % (11.5-14.5); WBC 7.1 10x3/uL (4.8-10.8)
[2019-03-19 05:02] LABS: ALBUMIN 2.9 g/dL (3.4-5.0); ANION GAP 11.4 mmol/L (8-16); BILIRUBIN - TOTAL 1.51 mg/dL (0.2-1.3); CARBON DIOXIDE 29.6 mmol/L (21.0-32.0); CREATININE - SERUM 1.1 mg/dL (0.6-1.3); PROTEIN - SERUM 6.8 g/dL (6.4-8.2)
--- NOTE | 2019-03-19 06:07 | NUR ---
PT WIEGHT 173.3 KG. DOBUTAMINE ADJUSTED TO 25.4MCG. PT ALERT AND ORIENTED RR EVEN AND UNLABORED. NO S/S OF DISTRESS. PT RUNNING 86 SR ON TELE PER BOAT PERSON, NOV. BED LOW CALL LIGHT WITHIN RREACH. WILL CONTINUE TO MONITOR.
--- NOTE | 2019-03-19 07:30 | NUR ---
A/A/OX4. DENIES ANY PAIN OR DISCOMFORT AND NO REQUESTS VOICED. DOBUTAMINE INFUSING WELL AT 5MCG/KG/MIN. IV SITE WITHOUT REDNESS OR EDEMA. SITTING UP IN BED WATCHING TV. 02 ON PER NC AT 7L/M HIGH FLOW. NO RESP DISTRESS NOTED AND DENIES ANY INCREASED SOB. ASSESSMENT COMPLETED. WILL CONTINUE POC.
--- NOTE | 2019-03-19 11:49 | NUR ---
DOBUTAMINE DRIP DECREASED TO 3MCG/KG/MIN ORDERED.
--- NOTE | 2019-03-19 12:19 | NUR ---
I have reviewed this patient and I concur with the Shift Assessment completed by the Licensed Practical Nurse today this shift.
--- NOTE | 2019-03-19 19:28 | NUR ---
INITIAL ROUNDS COMPLETED AT 1910 HRS. PT DENIED ANY DISCOMFORT. WILL CONTINUE TO MONITOR.
--- NOTE | 2019-03-19 21:38 | NUR ---
ASSESSMENT COMPLETED AT 1945 HRS. VSS. SR PER CM HR 65. 02 9L HIGH FLOW. ALERT AND ORIENTED TO PERSON, PLACE AND TIME. LEWIS. IV TO R HAND WITH DOBUTRX AT 3MCQ/KG/MIN ( 15.6CC/HR). IV PATENT. IV TO RAC SL. LUNGS DIMINISHED IN BASES BILAT. K+ RECHECK 3.4. KCL 40MEQ PO GIVEN WITH PM MEDS. WILL CONTINUE TO MONITOR. SR UP X2,CALL LIGHT WITHIN REACH.
--- NOTE | 2019-03-20 00:27 | NUR ---
PT RESTING WITH EYES CLOSED. RESP EVEN AND REGULAR. SR UP X2,CALL LIGHT WITHIN REACH.
--- NOTE | 2019-03-20 02:00 | NUR ---
O2 CHANGED TO PT'S OWN CPAP. URINAL EMPTIED OF 900CC OF YELLOW URINE. SR UP X2, CALL LIGHT WITHIN REACH.
--- NOTE | 2019-03-20 03:55 | NUR ---
PT RESTING WITH EYES CLOSED. RESP EVEN AND REGULAR. SR UPX2,CALL LIGHT WITHIN REACH.
[2019-03-20 04:30] VITALS: BP 116/62
[2019-03-20 04:40] LABS: BASOPHILS 0.1 % (0-2); EOSINOPHILS 3.5 % (0-7); HEMATOCRIT 40.1 % (42.0-54.0); HEMOGLOBIN 13.4 g/dL (13.5-17.5); IMMATURE GRANULOCYTES 0.3 % (0-5); LYMPHOCYTES 12.4 % (15-50); MCH 35.1 pg (26.0-34.0); MCHC 33.4 g/dL (31.0-37.0); MEAN PLATELET VOLUME 10.7 fL (7.4-10.4); MONOCYTES 6.7 % (2-11); PLATELET COUNT 146 10x3/uL (130-400); RBC 3.82 10x6/uL (4.20-6.10); RDW 16.2 % (11.5-14.5); WBC 7.2 10x3/uL (4.8-10.8)
[2019-03-20 05:09] LABS: ALBUMIN 3.1 g/dL (3.4-5.0); ANION GAP 10.3 mmol/L (8-16); BILIRUBIN - TOTAL 1.24 mg/dL (0.2-1.3); CALCIUM 8.1 mg/dL (8.5-10.1); CARBON DIOXIDE 31.9 mmol/L (21.0-32.0); CREATININE - SERUM 1.2 mg/dL (0.6-1.3); POTASSIUM - SERUM 3.2 mmol/L (3.5-5.1)
--- NOTE | 2019-03-20 06:23 | NUR ---
K+ 3.2. KCL 40 MEQ PO GIVEN WITH AM LAB. VSS THROUGHOUT NIGHT. SR PER CM. PT DENIED ANY DISCOMFORT. NEEDS MET;WILL CONTINUE TO MONITOR.
[2019-03-20 07:56] VITALS: BP 130/65
[2019-03-20 08:47] LABS: ANION GAP 11.8 mmol/L (8-16); CALCIUM 7.9 mg/dL (8.5-10.1); CARBON DIOXIDE 30.6 mmol/L (21.0-32.0); CREATININE - SERUM 1.2 mg/dL (0.6-1.3); POTASSIUM - SERUM 3.4 mmol/L (3.5-5.1)
[2019-03-20 11:22] VITALS: BP 138/69
[2019-03-20 16:49] VITALS: BP 127/67
--- NOTE | 2019-03-20 19:24 | NUR ---
INITIAL ROUNDS COMPLETED. PT DENIED ANY DISCOMFORT. CALL LIGHT WITHIN REACH.
--- NOTE | 2019-03-20 19:57 | NUR ---
ASSESSMENT COMPLETED AT 1935 HRS. VSS. SRPER CM HR 64. O2 6L HIGH FLOW. ALERT AND ORIENTED TO PERSON, PLACE AND TIME. LEWIS. IV TO RAC WITH DOBUTREX AT 3MCQ/KG/MIN (15.6CC/HR). IV PATENT.LUNGS DIMINISHED IN BASES BILAT. DENIES ANY DISCOMFORT.INFORMED NPO AFTER MIDNIGHT FOR MID MORNING LHC. PT STATED UNDERSTANDING. SR UP X2,CALL LIGHT WTIHIN REACH.
[2019-03-20 20:07] VITALS: BP 125/58
--- NOTE | 2019-03-20 21:21 | NUR ---
PM MEDS GIVEN. WILL CONTINUE TO MONITOR.
[2019-03-20 23:49] VITALS: BP 136/69
--- NOTE | 2019-03-21 00:21 | NUR ---
PT AWAKE; DENIES ANY DISCOMFORT. SR UP X2,CALL LIGHT WITHIN REACH.
--- NOTE | 2019-03-21 02:17 | NUR ---
PT RESTING WITH EYES CLOSED. RESP EVEN AND REGULAR. SR UPX2, CALL LIGHT WITHIN REACH.
--- NOTE | 2019-03-21 04:12 | NUR ---
PT RESTING WITH EYES CLOSED. RESP EVEN AND REGULAR. SR UPX2,CALL LIGHT WITHIN REACH.
[2019-03-21 04:23] VITALS: BP 121/62
[2019-03-21 05:14] LABS: BASOPHILS 0.3 % (0-2); EOSINOPHILS 4.5 % (0-7); HEMATOCRIT 42.1 % (42.0-54.0); HEMOGLOBIN 13.9 g/dL (13.5-17.5); IMMATURE GRANULOCYTES 0.3 % (0-5); LYMPHOCYTES 12.3 % (15-50); MCH 34.7 pg (26.0-34.0); MEAN PLATELET VOLUME 10.8 fL (7.4-10.4); MONOCYTES 8.2 % (2-11); NEUTROPHILS 74.4 % (40-80); PLATELET COUNT 161 10x3/uL (130-400); RBC 4.01 10x6/uL (4.20-6.10); RDW 16.3 % (11.5-14.5); WBC 7.2 10x3/uL (4.8-10.8)
[2019-03-21 05:38] LABS: ALBUMIN 3.2 g/dL (3.4-5.0); ANION GAP 10.7 mmol/L (8-16); BILIRUBIN - TOTAL 1.18 mg/dL (0.2-1.3); CALCIUM 8.6 mg/dL (8.5-10.1); CARBON DIOXIDE 29.6 mmol/L (21.0-32.0); CREATININE - SERUM 1.1 mg/dL (0.6-1.3); POTASSIUM - SERUM 3.3 mmol/L (3.5-5.1); PROTEIN - SERUM 7.3 g/dL (6.4-8.2)
--- NOTE | 2019-03-21 06:12 | NUR ---
K+ 3.3. KCL 40 MEQ PO GIVEN WITH JUST ENOUGH WATER TO SWALLOW. DENIES ANY DISCOMFORT. FOR AM [facility] MID MORNING. NEEDS MED; WILL CONTINUE TO MONITOR.
[2019-03-21 08:08] VITALS: BP 113/55
--- NOTE | 2019-03-21 08:15 | NUR ---
PRE-OP MEDICATIONS GIVEN AT THIS TIME. PT A/O X4, RESP EVEN AND NONLABORED ON CPAP. DENIES ANY NEEDS AT THIS TIME. CALL LIGHT IN REACH, NAD NOTED,W ILL CONTINUE PLAN OF CARE.
--- NOTE | 2019-03-21 08:51 | NUR ---
AM MEDS GIVEN WITH A SIP OF WATER. PT DENIES ANY NEEDS AT THIS TIME. CALL LIGHT IN REACH, NAD NOTED, PT TO ENVIRONMENTAL ANALYST AT THIS TIME.
--- NOTE | 2019-03-21 10:05 | NUR ---
RECEIVED PT BACK TO ROOM 2125, PT DROWSY BUT EASILY AROUSES TO VOICE. VITAL SIGNS STABLE, PLACED PT ON Q15MIN VITALS. RT GROIN DRESSING CDI, NO SIGNS OF BLEEDING OR HEMATOMA NOTED. FAMILY AT BEDSIDE, PT DENIES ANY NEEDS AT THIS TIME. CALL LIGHTIN REACH, NAD NOTED,WILL CONTINUE TO MONITOR.
--- NOTE | 2019-03-21 11:10 | NUR ---
NO CHANGES TO RIGHT GROIN FROM PREVIOUS ASSESSMENT. PT RESTING COMFORTABLY IN BED, DENIES ANY NEEDS AT THIS TIME. CALL LIGHT IN REACH, NAD NOTED, WILL CONTINUE TO MONITOR.
[2019-03-21 11:57] VITALS: BP 133/71
--- NOTE | 2019-03-21 13:46 | NUR ---
NO CHANGES TO RT GROIN FROM PREVIOUS ASSESSMENT. PT DENIES ANY NEEDS A THIS TIME. FAMILY AT BEDSIDE, NAD NOTED,WILL CONTINUE TO MONITOR.
[2019-03-21 15:44] VITALS: BP 154/66
--- NOTE | 2019-03-21 16:38 | NUR ---
COREG AND LIBRIUM GIVEN ORDERED. RT GROIN DRESSING CDI, NO BLEEDING OR HEMATOMA NOTED. EMPTIED 1200CC OF EMILIA URINE OUT OF URINAL. PT DENIES ANY NEED AT THIS TIME. CALL LIGHT IN REACH, NAD NOTED.
--- NOTE | 2019-03-21 19:23 | NUR ---
RECIEVED UP IN BED WITH EYES CLOSED. EASILY AROUSED WITH VERBAL STIMULI. ORIENTED X4. UP AD THIERNO TO B/R. CONTINENT OF B/B. O2@ 3 LITERS PER HF CANNULA. IV TO RIGHT AC WITH DOBUTAMINE AT 14.9CC/HR. DSG TO RIGHT GROIN CDI. DEFIBULATOR TO LEFT CHEST. BRUISES TO ABDOMEN. DENIES ANY NEEDS AT THISTIME.
[2019-03-21 21:25] VITALS: BP 143/58
[2019-03-21 21:34] VITALS: BP 135/56
--- NOTE | 2019-03-21 22:01 | NUR ---
CALLED INTO THE ROOM BECAUSE PT HAD A NOSE BLEED. OBSERVED BLOOD ON HIS LETTY HAND AND SEVERAL TISSUES IN TRASH CAN. PT STATED " I THINK IT'S BECAUSE MY NOSE IS DRY. I'VE BEEN PULLING OUT FLAKES LATELY." NOT ACTIVELY BLEDING AT TH8IS TIME. CLEANED PT UP AND CHANGED GOWN. ASKED PT TO CALL THIS NURSE IF IT HAPPENS AGAIN. VERBAL AGREMENT GIVEN.
[2019-03-22 01:56] VITALS: BP 140/64
[2019-03-22 06:23] VITALS: BP 130/53
[2019-03-22 06:41] LABS: ANION GAP 14.9 mmol/L (8-16); BILIRUBIN - TOTAL 1.03 mg/dL (0.2-1.3); CALCIUM 8.2 mg/dL (8.5-10.1); CARBON DIOXIDE 25.7 mmol/L (21.0-32.0); CREATININE - SERUM 1.1 mg/dL (0.6-1.3); POTASSIUM - SERUM 3.6 mmol/L (3.5-5.1); PROTEIN - SERUM 6.5 g/dL (6.4-8.2)
--- NOTE | 2019-03-22 07:11 | NUR ---
NEW BAG OF DOBUTAMINE HUNG AT THIS TIME. PT RESTING COMFORTABLY IN BED, WITH EYES CLOSED, NAD NOTED, WILL CONTINUE PLAN OF CARE.
[2019-03-22 07:44] VITALS: BP 140/78
[2019-03-22 07:54] LABS: BASOPHILS 0.3 % (0-2); HEMATOCRIT 39.9 % (42.0-54.0); HEMOGLOBIN 13.3 g/dL (13.5-17.5); IMMATURE GRANULOCYTES 0.2 % (0-5); LYMPHOCYTES 13.1 % (15-50); MCH 34.8 pg (26.0-34.0); MCHC 33.3 g/dL (31.0-37.0); MCV 104.5 fL (80.0-100.0); MEAN PLATELET VOLUME 10.8 fL (7.4-10.4); MONOCYTES 8.2 % (2-11); NEUTROPHILS 73.2 % (40-80); PLATELET COUNT 188 10x3/uL (130-400); RBC 3.82 10x6/uL (4.20-6.10); RDW 16.1 % (11.5-14.5); WBC 6.4 10x3/uL (4.8-10.8)
--- NOTE | 2019-03-22 08:13 | NUR ---
AM MEDS GIVEN AT THIS TIME. PT FIXING TO EAT BREAKFAST. A/O X4, RESP EVEN AND NONLABORED ON 2L. RT AC IV INFUSING DOBUTAMINE AT 14.9. PT DENIES ANY NEEDS AT THIS TIME. CALL LIGHT IN REACH, NAD NOTED, WILL CONTINUE PLAN OF CARE.
[2019-03-22] MEDS ORDERED: NORVASC10 MG PO (10:34)
[2019-03-22] MEDS ORDERED: COREG25 MG PO (10:38)
--- NOTE | 2019-03-22 11:13 | NUR ---
I CALLED DR HALL CELL PHONE PER THE OFFICE HE IS IN SURGERY TODAY. I LEFT A MESSAGE ON CELL PHONE R/T CONTINUATION OF ASA AND PLAVIX PER DR ROLLINS NOTE. AWAITING CALL BACK TO FINISH DISCHARGE.
--- NOTE | 2019-03-22 11:34 | MORECARE ---
CASE MANAGEMENT DISCHARGE SUMMARY PATIENT: REED PATEL UNIT: [id number] ADM DATE: 03/16/19 AGE: 63 : 55 SEX: M ROOM/BED: D.1533 AUTHOR: LOIS,DOC PHYSICIAN: REFERRING PHYSICIAN: JUAN DURAN MD DATE OF SERVICE: 03/22/19 Discharge Plan Patient Name: REED PATEL Facility: [facility]:[place] : 1955 Planned Disposition: Home Anticipated Discharge Date: 03/22/19 Discharge Date: Expected LOS: 6 Initial Reviewer: [email or web address] Initial Review Date: 03/16/2019 Generated: 03/22/19 12:34 pm DCP- Discharge Planning Updated by [email or web address]: Geraldine Gilmore on 03/17/19 3:[address] CM met with the patient and his at the bedside. The patient gave permission for CM to speak with his , Olga Patel, and with young visitors present. He identified them as family. CM explained my role. Discussed care and providers for home health, acute rehab and skilled care. The patient is on 9/ L for nasal oxygen. He is not on oxygen at home. He has a glucometer that he uses occasionally. A shower chair is available if needed. He will ambulate with a "stick" sometimes. Denies any additional DME. They plan to return to home at discharge. Denies any need for services. CM explained Shawn, the unit family service caseworker, is available to assist if they have a need or change their minds. CM also discussed how to obtain services post discharge. There is a ramp to enter patient's home or 3 steps w/ railing. states patient normally utilizes the ramp. reports the patient does have a HX of frequent falls. Patient does have an emergency call system if needed. He denies any hospitalizations within the last 30 days. PCP- DR Patton Brick Maker- DR Howard B/P 198/104 - 176/98 , O2 sat range 86% - 92%. Presently on oxygen 9/ L. Per MD notes patient has CPAP at home. Started on Dobutamine for afterload. He is also on Lasix IV q12h. CM discussed accurate I/O monitoring with primary nurse , Brittani. She will discuss in report. She has measured his output. DCPIA - Discharge Planning Initial Assessment Updated by [id number]: Geraldinelilly Gilmore on 03/17/19 4:32 pm * Is the patient Alert and Oriented? Yes * How many steps to enter\\exit or inside your home? ramp * PCP DR Patton * Pharmacy [facility] * Preadmission Environment Home with Family * ADLs Independent * Equipment Glucometer Shower Chair * Other Equipment Denies any additional DME * List name and contact numbers for known caregivers / representatives who currently or will assist patient after discharge: Olga Patel - spouse- [phone] * Verbal permission to speak to the caregivers and representatives has been obtained from the patient. Yes * Community resources currently utilized None * Please name any agencies selected above. N/A * Additional services required to return to the preadmission environment? No * Can the patient safely return to the preadmission environment? Yes * Has this patient been hospitalized within the prior 30 days at any hospital? No Coverage Notice Reviewer: [id number] Sabiha Vo Notice Issued Date-Time: 03/22/2019 11:05 Notice Type: IM Discharge Notice Notice Delivered To: Patient Relationship to Patient: Solderer Production Line Name: Delivery Method: HAND - Hand Delivered Nathaly Days: Prior Verbal Notification: Recipient Understood Notice: Yes Recipient Signature: Yes Med Rec Note Co-signed by Attending: Coverage Notice Comment: Last DP export: 03/17/19 3:59 pm Patient Name: REED PATEL Page [phone] at 1134 All edits/amendments must be made on the electronic document DICTATION DATE: 03/22/19 1134 GREY GOODS MARKER: JAKE 03/22/19 1134 RPT#: [id number] DC DATE: STATUS: ADM IN [facility] [address] [place] [address] END OF REPORT
--- NOTE | 2019-03-22 11:45 | MORECARE ---
CASE MANAGEMENT DISCHARGE SUMMARY PATIENT: REED PATEL UNIT: [id number] ADM DATE: 03/16/19 AGE: 63 : 55 SEX: M ROOM/BED: D.4900 AUTHOR: LOISDOC PHYSICIAN: REFERRING PHYSICIAN: JUAN DURAN MD DATE OF SERVICE: 03/22/19 Discharge Plan Patient Name: REED PATEL Facility: [facility]:[place] : 1955 Planned Disposition: Home Anticipated Discharge Date: 03/22/19 Discharge Date: Expected LOS: 6 Initial Reviewer: [email or web address] Initial Review Date: 03/16/2019 Generated: 03/22/19 12:45 pm Comments DCP- Discharge Planning Updated by [email or web address]: Efrain Vo on 03/22/19 10:[address] Patient Name: REED PATEL Encounter No: [id number] : 1955 Primary Insurance: [employer] MEDICARE ADV Anticipated DC Date: 03-22-2019 Planned Disposition: Home DCP follow-up note: CM MET WITH PT IN ROOM TO DISCUSS DISCHARGE NEEDS AND PLANNING. CM DISCUSSED AVAILABILITY OF HOME HEALTH, REHAB SERVICES AND MEDICAL EQUIPMENT. PT DENIES DISCHARGE NEEDS. SPOUSE TO TRANSPORT HOME AT DISCHARGE. IMPORTANT MESSAGE FROM MEDICARE PROVIDED AND EXPLAINED. BUYER PLANNER NURSE NOTIFIED. Efrain Vo CASE RAVINDER DCP- Discharge Planning Updated by [id number]: Geraldine Gilmore on 03/17/19 3:[address] CM met with the patient and his at the bedside. The patient gave permission for CM to speak with his , Olga Patel, and with young visitors present. He identified them as family. CM explained my role. Discussed care and providers for home health, acute rehab and skilled care. The patient is on 9/ L for nasal oxygen. He is not on oxygen at home. He has a glucometer that he uses occasionally. A shower chair is available if needed. He will ambulate with a "stick" sometimes. Denies any additional DME. They plan to return to home at discharge. Denies any need for services. CM explained Shawn, the unit insurance case manager, is available to assist if they have a need or change their minds. CM also discussed how to obtain services post discharge. There is a ramp to enter patient's home or 3 steps w/ railing. states patient normally utilizes the ramp. reports the patient does have a HX of frequent falls. Patient does have an emergency call system if needed. He denies any hospitalizations within the last 30 days. PCP- DR Patton Psychotherapist Counselor- DR Howard B/P 198/104 - 176/98 , O2 sat range 86% - 92%. Presently on oxygen 9/ L. Per MD notes patient has CPAP at home. Started on Dobutamine for afterload. He is also on Lasix IV q12h. CM discussed accurate I/O monitoring with primary nurse , Brittani. She will discuss in report. She has measured his output. DCPIA - Discharge Planning Initial Assessment Updated by [email or web address]: Geraldine Gilmore on 03/17/19 4:32 pm * Is the patient Alert and Oriented? Yes * How many steps to enter\\exit or inside your home? ramp * PCP DR Patton * Pharmacy [facility] * Preadmission Environment Home with Family * ADLs Independent * Equipment Glucometer Shower Chair * Other Equipment Denies any additional DME * List name and contact numbers for known caregivers / representatives who currently or will assist patient after discharge: Olga Patel - spouse- [phone] * Verbal permission to speak to the caregivers and representatives has been obtained from the patient. Yes * Community resources currently utilized None * Please name any agencies selected above. N/A * Additional services required to return to the preadmission environment? No * Can the patient safely return to the preadmission environment? Yes * Has this patient been hospitalized within the prior 30 days at any hospital? No Coverage Notice Reviewer: [id number] - Efrain Vo Notice Issued Date-Time: 03/22/2019 11:05 Notice Type: IM Discharge Notice Notice Delivered To: Patient Relationship to Patient: Sales Planning Manager Name: Delivery Method: HAND - Hand Delivered Nathaly Days: Prior Verbal Notification: Recipient Understood Notice: Yes Recipient Signature: Yes Med Rec Note Co-signed by Attending: Coverage Notice Comment: Last DP export: 03/22/19 10:34 a Patient Name: REED PATEL Page 52052 at 1145 All edits/amendments must be made on the electronic document DICTATION DATE: 03/22/191143 ROOMING HOUSE KEEPER: JAKE 03/22/19 114 RPT#: [id number] DC DATE: STATUS: ADM IN [facility] [address] [place] [address] END OF REPORT
[2019-03-22 11:49] VITALS: BP 152/84
--- NOTE | 2019-03-22 13:04 | MORECARE ---
CASE MANAGEMENT DISCHARGE SUMMARY PATIENT: REED PATEL UNIT: [id number] ADM DATE: 03/16/19 AGE: 63 : 55 SEX: M ROOM/BED: D.1494 AUTHOR: LOISDOC PHYSICIAN: REFERRING PHYSICIAN: JUAN DURAN MD DATE OF SERVICE: 03/22/19 Discharge Plan Patient Name: REED PATEL Facility: [facility]:[place] : 1955 Planned Disposition: Home Anticipated Discharge Date: 03/22/19 Discharge Date: Expected LOS: 6 Initial Reviewer: [email or web address] Initial Review Date: 03/16/2019 Generated: 03/22/19 2:04 pm Comments DCP- Discharge Planning Updated by [email or web address]: Efrain Vo on 03/22/19 10:[address] Patient Name: REED PATEL Encounter No: [id number] : 1955 Primary Insurance: [employer] MEDICARE ADV Anticipated DC Date: 03-22-2019 Planned Disposition: Home DCP follow-up note: CM MET WITH PT IN ROOM TO DISCUSS DISCHARGE NEEDS AND PLANNING. CM DISCUSSED AVAILABILITY OF HOME HEALTH, REHAB SERVICES AND MEDICAL EQUIPMENT. PT DENIES DISCHARGE NEEDS. SPOUSE TO TRANSPORT HOME AT DISCHARGE. IMPORTANT MESSAGE FROM MEDICARE PROVIDED AND EXPLAINED. BREASTFEEDING EDUCATOR NURSE NOTIFIED. Efrain Vo CASE RAVINDER DCP- Discharge Planning Updated by [id number]: Geraldine Gilmore on 03/17/19 3:[address] CM met with the patient and his at the bedside. The patient gave permission for CM to speak with his , Olga Patle, and with young visitors present. He identified them as family. CM explained my role. Discussed care and providers for home health, acute rehab and skilled care. The patient is on 9/ L for nasal oxygen. He is not on oxygen at home. He has a glucometer that he uses occasionally. A shower chair is available if needed. He will ambulate with a "stick" sometimes. Denies any additional DME. They plan to return to home at discharge. Denies any need for services. CM explained Shawn, the unit bilingual case manager, is available to assist if they have a need or change their minds. CM also discussed how to obtain services post discharge. There is a ramp to enter patient's home or 3 steps w/ railing. states patient normally utilizes the ramp. reports the patient does have a HX of frequent falls. Patient does have an emergency call system if needed. He denies any hospitalizations within the last 30 days. PCP- DR Patton Meat Clerk- DR Howard B/P 198/104 - 176/98 , O2 sat range 86% - 92%. Presently on oxygen 9/ L. Per MD notes patient has CPAP at home. Started on Dobutamine for afterload. He is also on Lasix IV q12h. CM discussed accurate I/O monitoring with primary nurse , Brittani. She will discuss in report. She has measured his output. DCPIA - Discharge Planning Initial Assessment Updated by [email or web address]: Geraldine Gilmore on 03/17/19 4:32 pm * Is the patient Alert and Oriented? Yes * How many steps to enter\\exit or inside your home? ramp * PCP DR Patton * Pharmacy [facility] * Preadmission Environment Home with Family * ADLs Independent * Equipment Glucometer Shower Chair * Other Equipment Denies any additional DME * List name and contact numbers for known caregivers / representatives who currently or will assist patient after discharge: Olga Patel - spouse- [phone] * Verbal permission to speak to the caregivers and representatives has been obtained from the patient. Yes * Community resources currently utilized None * Please name any agencies selected above. N/A * Additional services required to return to the preadmission environment? No * Can the patient safely return to the preadmission environment? Yes * Has this patient been hospitalized within the prior 30 days at any hospital? No External Providers External Provider: [facility] Next Contact Date: 03/22/2019 Service Request Date: Service Type: Resolution: Reviewer: Comments: Coverage Notice Reviewer: [id number] Sabiha Vo Notice Issued Date-Time: 03/22/2019 11:05 Notice Type: IM Discharge Notice Notice Delivered To: Patient Relationship to Patient: Ginseng Farmer Name: Delivery Method: HAND - Hand Delivered Nathaly Days: Prior Verbal Notification: Recipient Understood Notice: Yes Recipient Signature: Yes Med Rec Note Co-signed by Attending: Coverage Notice Comment: Reviewer: [email or web address] Vo Notice Issued Date-Time: 03/22/2019 12:40 Notice Type: Patient Choice Letter Notice Delivered To: Patient Relationship to Patient: Ginseng Farmer Name: Delivery Method: HAND - Hand Delivered Nathaly Days: Prior Verbal Notification: Recipient Understood Notice: Yes Recipient Signature: Yes Med Rec Note Co-signed by Attending: Coverage Notice Comment: MARICARMEN Jesus DP export: 03/22/19 10:45 a Patient Name: REED PATEL Page 31750 at 1304 All edits/amendments must be made on the electronic document DICTATION DATE: 03/22/19 1304 DREDGE BOAT ENGINEER: JAKE 03/22/19 1304 RPT#: [id number] DC DATE: STATUS: ADM IN [facility] [address] [place] [address] END OF REPORT
--- NOTE | 2019-03-22 13:12 | MORECARE ---
CASE MANAGEMENT DISCHARGE SUMMARY PATIENT: REED PATEL UNIT: [id number] ADM DATE: 03/16/19 AGE: 63 : 55 SEX: M ROOM/BED: D.1713 AUTHOR: LOIS,DOC PHYSICIAN: REFERRING PHYSICIAN: JUAN DURAN MD DATE OF SERVICE: 03/22/19 Discharge Plan Patient Name: REED PATEL Facility: [facility]:[place] : 1955 Planned Disposition: Home Anticipated Discharge Date: 03/22/19 Discharge Date: Expected LOS: 6 Initial Reviewer: [email or web address] Initial Review Date: 03/16/2019 Generated: 03/22/19 2:11 pm Comments DCP- Discharge Planning Updated by [email or web address]: Efrain Vo on 03/22/19 12:[address] Patient Name: REED PATEL Encounter No: [id number] : 1955 Primary Insurance: [employer] ADV Anticipated DC Date: 03-22-2019 Planned Disposition: Home DCP follow-up note: CM MET WITH PT IN ROOM TO DISCUSS DISCHARGE NEEDS AND PLANNING. CM DISCUSSED AVAILABILITY OF HOME HEALTH, REHAB SERVICES AND MEDICAL EQUIPMENT. PT DENIES DISCHARGE NEEDS. SPOUSE TO TRANSPORT HOME AT DISCHARGE. IMPORTANT MESSAGE FROM MEDICARE PROVIDED AND EXPLAINED. COKE STILL CLEANER NURSE NOTIFIED. Efrain Vo, CASE MANAGEMENT Appended by Efrain Vo on 03/22/2019 13:09 CDT: CM RECEIVED OXYGEN TESTING, PT 96% ROOM AIR AT REST, 88% ON ROOM AIR DURING EXERTION WITH RECOVERY TO 98% ON 2LNC DURING EXERTION. CM MET WITH PT IN ROOM, DISCUSSED MEDICAL EQUIPMENT PROVIDERS AND NEED FOR OXYGEN. PT ASKED IF COULD JUST HAVE THEM MEET HIM AT HOME. CM EXPLAINED THAT PORTABLE WILL BE REQUIRED TO LEAVE THE HOSPITAL. PT IN AGREEMENT. PROVIDER LISTING GIVEN, PT SIGNED CHOICE FOR [facility] HE HAS OTHER EQUIPMENT FROM THEM. CM CALLED [facility], , SPOKE TO MAMADOU AND PROVIDED REFERRAL INFORMATION. CM FAXED REFERRAL TO [facility], . MAMADOU ADVISED THEY WILL DELIVER PORTABLE OXYGEN TO HOSPITAL TODAY AND WILL ARRANGE HOME OXYGEN WHEN PT ARRIVES AT HOME AFTER DISCHARGE. COKE STILL CLEANER NURSE NOTIFIED. EFRAIN COREY, CASE MANAGEMENT DCP- Discharge Planning Updated by [id number]: Geraldine Gilmore on 03/17/19 3:[address] CM met with the patient and his at the bedside. The patient gave permission for CM to speak with his , Olga Patel, and with young visitors present. He identified them as family. CM explained my role. Discussed care and providers for home health, acute rehab and skilled care. The patient is on 9/ L for nasal oxygen. He is not on oxygen at home. He has a glucometer that he uses occasionally. A shower chair is available if needed. He will ambulate with a "stick" sometimes. Denies any additional DME. They plan to return to home at discharge. Denies any need for services. CM explained Shawn, the unit complex case manager, is available to assist if they have a need or change their minds. CM also discussed how to obtain services post discharge. There is a ramp to enter patient's home or 3 steps w/ railing. states patient normally utilizes the ramp. reports the patient does have a HX of frequent falls. Patient does have an emergency call system if needed. He denies any hospitalizations within the last 30 days. PCP- DR Patton Regulatory Compliance Director- DR Howard B/P 198/104 - 176/98 , O2 sat range 86% - 92%. Presently on oxygen 9/ L. Per MD notes patient has CPAP at home. Started on Dobutamine for afterload. He is also on Lasix IV q12h. CM discussed accurate I/O monitoring with primary nurse , Brittani. She will discuss in report. She has measured his output. DCPIA - Discharge Planning Initial Assessment Updated by [id number]: Geraldine Gilmore on 03/17/19 4:32 pm * Is the patient Alert and Oriented? Yes * How many steps to enter\\exit or inside your home? ramp * PCP DR Patton * Pharmacy [facility] * Preadmission Environment Home with Family * ADLs Independent * Equipment Glucometer Shower Chair * Other Equipment Denies any additional DME * List name and contact numbers for known caregivers / representatives who currently or will assist patient after discharge: Olga Patel - spouse- [phone] * Verbal permission to speak to the caregivers and representatives has been obtained from the patient. Yes * Community resources currently utilized None * Please name any agencies selected above. N/A * Additional services required to return to the preadmission environment? No * Can the patient safely return to the preadmission environment? Yes * Has this patient been hospitalized within the prior 30 days at any hospital? No Coverage Notice Reviewer: [id number] Sabiha Vo Notice Issued Date-Time: 03/22/2019 11:05 Notice Type: IM Discharge Notice Notice Delivered To: Patient Relationship to Patient: Continuous Absorption Process Operator Name: Delivery Method: HAND - Hand Delivered Nathaly Days: Prior Verbal Notification: Recipient Understood Notice: Yes Recipient Signature: Yes Med Rec Note Co-signed by Attending: Coverage Notice Comment: Reviewer: [email or web address] Sabiha Vo Notice Issued Date-Time: 03/22/2019 12:40 Notice Type: Patient Choice Letter Notice Delivered To: Patient Relationship to Patient: Continuous Absorption Process Operator Name: Delivery Method: HAND - Hand Delivered Nathaly Days: Prior Verbal Notification: Recipient Understood Notice: Yes Recipient Signature: Yes Med Rec Note Co-signed by Attending: Coverage Notice Comment: MARICARMEN Jesus DP export: 03/22/19 12:04 p Patient Name: REED PATEL Page [phone] at 1312 All edits/amendments must be made on the electronic document DICTATION DATE: 03/22/19 1311 CHILD WATCH ATTENDANT: JAKE 03/22/19 1311 RPT#: [id number] DC DATE: STATUS: ADM IN [facility] [address] [place] [address] END OF REPORT
--- NOTE | 2019-03-22 13:42 | NUR ---
PROVIDED VERBAL AND WRITTEN DISCHARGE TEACHING TO PT WHO VERBALIZED UNDERSTANDING REGARDING TEACHING. D/C RT AC IV WITH CATHETER TIP INTACT. HEART MONITOR REMOVED AND TAKEN TO AUTO GLASS INSTALLER FRANKO. 1440- PT REFUSED TO RIDE ON WHEELCHAIR, LEFT UNIT WALKING, WITH ALL BELONGINGS, ACCOMPAINED BY FAMILY, NAD NOTED.
[2019-06-16] MEDS ORDERED: AMIODARONE HCL200 MG (16:12)
[2019-06-16] MEDS ORDERED: BUTALB-APAP-CA1 EACH PO (16:13)
[2019-06-16] MEDS ORDERED: DOXYCYCLINE HY100 M2 PO (16:14)
[2019-06-16] MEDS ORDERED: FLORAJEN3 CAPS460 MG PO (16:15)
[2019-06-16] MEDS ORDERED: OMEPRAZOLE40 MG PO (16:16)
== END 2019-03-22 14:45 | disposition home or self-care (01) | DRG 286 ==
LOC: D.M2 13:13
PROVIDERS: Internal Medicine Cardiovascular Disease; Internal Medicine Nephrology; ADMIT Family Medicine Adult Medicine; ATTEND Family Medicine Adult Medicine
PROC: B2181ZZ Fluoroscopy of Left Internal Mammary Bypass Graft using Low Osmolar Contrast (ICD-10-PCS; 2019-03-21)
PROC: B2121ZZ Fluoroscopy of Single Coronary Artery Bypass Graft using Low Osmolar Contrast (ICD-10-PCS; 2019-03-21)
PROC: B2151ZZ Fluoroscopy of Left Heart using Low Osmolar Contrast (ICD-10-PCS; 2019-03-21)
PROC: 4A023N7 Measurement of Cardiac Sampling and Pressure, Left Heart, Percutaneous Approach (ICD-10-PCS; 2019-03-21)
PROC: B2111ZZ Fluoroscopy of Multiple Coronary Arteries using Low Osmolar Contrast (ICD-10-PCS; principal; 2019-03-21 08:45)
DX: I11.0 Hypertensive heart disease with heart failure (principal); J96.01 Acute respiratory failure with hypoxia; Z68.43 Body mass index [BMI] 50.0-59.9, adult; C64.2 Malignant neoplasm of left kidney, except renal pelvis; I50.23 Acute on chronic systolic (congestive) heart failure; I25.110 Atherosclerotic heart disease of native coronary artery with unstable angina pectoris; I42.6 Alcoholic cardiomyopathy; I25.5 Ischemic cardiomyopathy; D53.9 Nutritional anemia, unspecified; E66.01 Morbid (severe) obesity due to excess calories; N28.89 Other specified disorders of kidney and ureter; F10.10 Alcohol abuse, uncomplicated; E78.5 Hyperlipidemia, unspecified; G47.33 Obstructive sleep apnea (adult) (pediatric); Z95.0 Presence of cardiac pacemaker

== ENCOUNTER → 2019-04-28 16:51 | Outpatient (CLI) | payer MEDICARE ==
[~2019-04-28 16:51] MED LIST: AMIODARONE HCL200 MG PO; ASPIRIN81 MG PO; BUMEX2 MG PO; BUTALB-APAP-CA1 EACH PO; COREG25 MG PO; GLUCOTROL 5 MG T5 MG PO; KLONOPIN0.5 MG PO; LIPITOR40 MG PO; LISINOPRIL-HCT1 EAC4 PO; LYRICA150 MG PO; NORVASC10 MG PO; OMEPRAZOLE40 MG PO; PLAVIX75 MG PO; POTASSIUM99 M1 PO; TYLENOL W/CODEI1 TAB PO; ZOLOFT25 MG PO
[2019-04-28 19:26] LABS: ANION GAP 14.9 mmol/L (8-16); CALCIUM 9.1 mg/dL (8.5-10.1); CARBON DIOXIDE 28.5 mmol/L (21.0-32.0); CREATININE - SERUM 1.7 mg/dL (0.6-1.3); POTASSIUM - SERUM 4.4 mmol/L (3.5-5.1)
== END | disposition home or self-care (01) ==
LOC: D.LABREF 16:51
PROVIDERS: ATTEND Internal Medicine Interventional Cardiology
DX: I10 Essential (primary) hypertension (principal)

== ENCOUNTER 2019-05-17 17:17 | Inpatient (IN) | payer MEDICARE ==
[~2019-05-17] VITALS: Ht 185.4 cm; Wt 167.4 kg
[2019-05-19] MEDS ORDERED: COREG25 MG PO (14:09)
[2019-05-19 15:11] LABS: BASOPHILS 0.7 % (0-2); EOSINOPHILS 3.9 % (0-7); HEMOGLOBIN 14.2 g/dL (13.5-17.5); IMMATURE GRANULOCYTES 0.2 % (0-5); LYMPHOCYTES 14.6 % (15-50); MCH 34.4 pg (26.0-34.0); MCHC 33.8 g/dL (31.0-37.0); MCV 101.7 fL (80.0-100.0); MEAN PLATELET VOLUME 10.9 fL (7.4-10.4); MONOCYTES 6.3 % (2-11); NEUTROPHILS 74.3 % (40-80); PLATELET COUNT 144 10x3/uL (130-400); RBC 4.13 10x6/uL (4.20-6.10); RDW 15.4 % (11.5-14.5); WBC 5.7 10x3/uL (4.8-10.8)
[2019-05-19 15:22] LABS: APTT 32.7 SECONDS (22.8-39.4); INR 1.08 (0.85-1.17); PROTIME 13.5 SECONDS (11.6-15.0)
[2019-05-19 15:38] LABS: ANION GAP 12.2 mmol/L (8-16); CALCIUM 8.5 mg/dL (8.5-10.1); CARBON DIOXIDE 30.5 mmol/L (21.0-32.0); CREATININE - SERUM 2.5 mg/dL (0.6-1.3); POTASSIUM - SERUM 4.7 mmol/L (3.5-5.1)
[2019-05-20] VITALS (7 sets, daily range): BP systolic 91–131; BP diastolic 51–83; BMI 48.5; BMI 48.8
--- NOTE | 2019-05-20 16:20 | OP ---
PATIENT NAME: REED COX MEDICAL RECORD: [id number] :55 LOCATION:[facility]- ADMISSION DATE:05/20/19 SURGEON: GRAY HALL MD DATE OF OPERATION: 05/20/2019 CO-SURGEONS: Gray Hall MD and Gray Simms MD ANESTHESIA: Epidural by Fred Mcgill CRNA. DIAGNOSIS: Left renal mass 5.5 cm in upper pole. Clinical stage T1, N0, M0. PROCEDURE: Laparoscopic hand-assisted left radical nephrectomy. SPECIMENS: Left kidney plus adrenal plus ureter. 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 The kidney was displaced cranially, leaving the renal pedicle covered by the tail of the pancreas and the spleen. BLOOD LOSS: Difficult to estimate. CLINICAL HISTORY: This is a 63-year-old male, who is morbidly obese and he is a former smoker. He has issues with obstructive sleep apnea. He was found to have a large left renal mass, which is solid and it enhances with contrast. He has a metastatic workup, which was negative. He comes today to have a laparoscopic hand-assisted radical nephrectomy. DESCRIPTION OF PROCEDURE: The patient was given an epidural first for postoperative pain control. He was then placed in supine position and given general anesthesia. A Chi catheter was put into the bladder and put to bag drainage. The patient was then turned into a 45-degree lateral decubitus position with the left side up. We used a beanbag to hold it in place. Due to the patient's large size, we made a paramedian incision for the hand port. This was made 7.5 cm in length. We went down to the rectus fascia and entered into the peritoneal cavity. The Gelport hand access port was then placed. Trocar was inserted and pneumoperitoneum was obtained. Two 12 mm ports were placed, one under the rib cage for the camera. Another one was placed lateral to the hand access port for the working site. The lateral peritoneum along the line of Toldt was cut down using the Harmonic scalpel. We came to the splenic flexure where the splenic ligaments were taken down. The kidney is quite massive. We dissected the plane between the anterior portion of the kidney and the undersurface of the spleen. The colon was moved medially and inferiorly to uncover the surface of the kidney. Dissecting into the perinephric fat at the lower pole of the kidney, we identified the ureter and this was clipped multiple times and divided. The gonadal vessel was also identified and this was clipped multiple times and divided with Metzenbaum scissors. During the dissection along the medial surface of the kidney, we identified the tail of the pancreas. As we gently dissected this free, we identified the renal artery and the renal vein underneath the tail of the pancreas. We continued to free the connection between the medial surface of the kidney and the undersurface of the spleen. It was evident that we would have to take the renal artery and renal vein with the staple load. An Endo-SARANYA 45 with a vascular load was used to divide the renal artery and vein. This allowed us to fully dissect the tail of the spleen free from the renal hilum. Going with further Endo-SARANYA loads, we came across the medial surface of the kidney and the renal hilum. The patient continued to have OPERATIVE REPORT [id number] REED COX PRATIMA a large number of parasitic vessels going into the retroperitoneum. This required further Endo-SARANYA loads to finally free up. Ultimately, we freed up the kidney with no further attachments. The difficulty now consisted of the extremely large size of the kidney. It could not come out through our hand port access site. We had to lengthen our hand port access incision. The fascia also had to be lengthened in the incision. Finally, we managed to pull out the specimen after removing the Gelport hand access site. We could not then close the 12-mm trocar sites, but these were located obliquely and Dr. Simms feels that this would not predisposes to hernia. We did place Surgicel Nu-Knit over the renal fossa. The sponge and instrument counts being correct, we then closed the rectus fascia with looped running 0 PDS. Howard were used to close the incisions. Dressings were applied. The patient will be going to the intensive care unit. TRANSINT:[id number] Voice Confirmation ID: [id number] DOCUMENT ID: [id number] GRAY HALL MD at 1620 CC: [id number] DICTATION DATE: 05/20/19 1552 PULMONOLOGY PHYSICIAN: 05/20/19 1615 ADM IN [facility] [id number] [place] [address]
--- NOTE | 2019-05-20 16:52 | NUR ---
PT RECEIVED. VSS. PT RESTING COMFORTABLY WAS TOLD WAS IN WAITING AREA. LOOKED IN RADIOLOGY AND ICU WAITING AREA NO YAMILEX PRESENT. WILL ATTEMPT TO CALL. PT DENIES NEEDS WILL CONTINUE TO MONITOR
--- NOTE | 2019-05-20 21:00 | NUR ---
PT RESTING IN BED WITH EYES CLOSED, PT AWAKES TO NAME AND IS AAOX4. PT DENIES ANY COMPLAINTS AT THIS TIME.
--- NOTE | 2019-05-20 23:00 | NUR ---
PT AWAKE AND ALERT WITH RT IN THE ROOM, PT WANTING TO WATCH TV, NO DISTRESS NOTED AT THIS TIME
[2019-05-21] VITALS (23 sets, daily range): BP systolic 93–136; BP diastolic 50–80
--- NOTE | 2019-05-21 01:00 | NUR ---
PT RESTING WITH EYES CLOSED RESP EFFORT EVEN NON-LABORED, NO DISTRESS NOTED AT THIS TIME
--- NOTE | 2019-05-21 03:32 | NUR ---
PT RESTING WITH EYES CLOSED, PT AWAKES TO NAME, RESP EVEN NON LABORED, CPAP INPLACE, NO DISTRESS NOTED
--- NOTE | 2019-05-21 05:00 | NUR ---
PT RESTING WITH EYES CLOSED, AWAKES TO NAME. RESP EVEN NON-LABORED, NO DISTRESS NOTED AT THIS TIME
--- NOTE | 2019-05-21 07:30 | NUR ---
ASSESSMENT COMPLETED. EYES CLOSED, EASILY AROUSED. ORIENTED TO PERSON, PLACE AND TIME. O2 @ 2L VIA HIGH FLOW, LUNGS DIMINISHED IN THE BASES. RT HAND PIV, SITE WITHOUT REDNESS OR EDEMA, SL. EPIDURAL, CLEAN, DRY AND INTACT @ 6CC/HR BASAL RATE WITH OPTIONAL BOLUS OF 3CC. DENIES ANY PAIN OR NEEDS AT THIS TIME. LT 2ND AND 3RD FINGER WITH RICHARD, STATES HE PUT HIS HAND IN HOT CHEESE DIP AT [facility]. TONY CATH INTACT WITH CLEAR YELLOW URINE IN BAG. PPP. SB ON THE MONITOR.
--- NOTE | 2019-05-21 09:30 | NUR ---
DR BHAKTA AT BEDSIDE. UPDATE GIVEN. NO NEW ORDERS RECIEVED.
--- NOTE | 2019-05-21 10:30 | NUR ---
DRESSED RICHARD TO LT FINGERS WITH ADAPTIC AND GAUZE. WILL CONT TO MONITOR.
--- NOTE | 2019-05-21 10:41 | NUR ---
BP MEDS HELD DUE TO BP 103/56.
--- NOTE | 2019-05-21 11:06 | NUR ---
PAGED DR HALL FOR DIET FOR PT. AWAITING RETURN CALL.
--- NOTE | 2019-05-21 11:30 | NUR ---
DR HALL AT BEDSIDE. UPDATE GIVEN. SHOWED DR HALL PT LT FINGERS. NEW ORDER FOR INCREASE IN DIET AND SILVADENE FOR RICHARD.
--- NOTE | 2019-05-21 12:02 | NUR ---
AT BEDSIDE. UPDATE GIVEN. CLEAR LIQUID TRAY SERVED.
--- NOTE | 2019-05-21 14:00 | NUR ---
VISITING WITH FAMILY. DENIES ANY PAIN OR NEEDS AT THIS TIME. SB ON THE MONITOR.
--- NOTE | 2019-05-21 16:00 | NUR ---
EYES CLOSED, RESP EVEN AND UNLABORED. WILL CONT TO MONITOR.
--- NOTE | 2019-05-21 17:06 | NUR ---
HELD CORGEG DUE TO DECREASED BP
--- NOTE | 2019-05-21 19:00 | NUR ---
PATIENT IN BED WITH O2 IN PLACE NC, C PAP AT BEDSIDE, ALERT AND ORENTED ABLE TO VOICE NEEDS AND WANTS TO STAFF. EPIDURAL IN PLACE AND INTACT. PATIENT STATES NO PAIN. CALL LIGHT IN REACH.BED LOW.
--- NOTE | 2019-05-21 21:00 | NUR ---
PT IN BED ALERT AND ORENTED ABLE TO VOICE NEEDS AND WANTS TO STAFF. BED LOW. CALL LIGHT IN REACH. EPIDURAL IN PLACE AND INTACT. PT. STATES NO PAIN. SCD'S IN PLACE. O2 IN PLACE VIA N/C AT 2L. NO NEEDS AT THIS TIME.
--- NOTE | 2019-05-21 23:00 | NUR ---
PT. IN BED NAPPING AWAKES TO VOICE, STATES NO PAIN, NO NEEDS EPIDURAL IN PLACE AND INTACT. BED LOW , CALL LIGHT IN REACH WATER IN REACH AT BEDSIDE. REFUSED BATH THIS SHIFT. TONY CARE DONE. DRESSING TO ABD C/D/I.
[2019-05-22] VITALS (19 sets, daily range): BP systolic 83–118; BP diastolic 30–86
--- NOTE | 2019-05-22 01:39 | NUR ---
SLEEPING WITH NO S/S OF DISTRESS CPAP IN PLACE. RESPRATIONS EVEN AND UNLABORED. BED LOW. CALL LIGHT IN REACH. EPIDURAL IN PLACE AND INTACT.
--- NOTE | 2019-05-22 02:10 | NUR ---
RESTING IN BED C PAP IN PLACE NO S/S OF DISTRESS. CALL LIGHT IN REACH. CHECKED OFTEN FOR NEEDS AND SAFETY.
--- NOTE | 2019-05-22 03:27 | NUR ---
RESTING NO S/S OF DISTRESS. EPIDURAL IN PALCE AND PATEN . CALLL LIGHT IN REACH. CPAP IN PLACE.BED LOW.
--- NOTE | 2019-05-22 04:30 | NUR ---
RESTING IN BED F/C WITH 150CC OUT PUT THIS SHIFT. NO S/S OF DISTRESS CALL LIGHT IN REACH.
--- NOTE | 2019-05-22 05:07 | NUR ---
RESTING IN BED RESPRATION EVEN AND UNLABORED CPAP IN PLACE. CALL LIGHT AND WATER IN REACH. CHECKED OFTEN FOR NEEDS AND SAFETY.
--- NOTE | 2019-05-22 06:04 | NUR ---
SLEEPING NO S/S OF DISTRESS. CPAP IN PLACE CALL LIGHT IN REACH. NO NEEDS AT THIS TIME.
--- NOTE | 2019-05-22 08:46 | NUR ---
3.5 ML LEFT IN RESERVIOR OF EPIDURAL. DR BHAKTA PAGED AND NOTIFIED. HE STATED HE WOULD BE BY SHORTLY. NO ACUTE DISTRESS NOTED. WILL CONTINUE PLAN OF CARE.
--- NOTE | 2019-05-22 08:53 | NUR ---
EPIDURAL DCD AT THIS TIME BY DR BHAKTA ANESTHESIOLOGIST. SITE WDL. PRN NORCO ADMIN FOR DISCOMFORT. AT BEDSIDE. NO ACUTE DISTRESS NOTED. VSS. WILL CONTINUE PLAN OF CARE.
--- NOTE | 2019-05-22 09:54 | NUR ---
LYING IN BED RESTING AT THIS TIME. NO ACUTE DISTRESS NOTED. VSS. RESPIRATIONS STEADY AND UNLABORED RATE. AWAKENS EASILY WHEN SPOKEN TO. CALL LIGHT IN REACH. WILL CONTINUE PLAN OF CARE.
--- NOTE | 2019-05-22 10:29 | NUR ---
LYING IN BED ON HOME CPAP RESTING AT THIS TIME WITH EYES CLOSED, RESPIRATIONS STEADY AND UNLABORED. AWAKENS EASILY WHEN SPOKEN TO. NO CURRENT DISCOMFORTS OR COMPLAINTS. NO ACUTE DISTRESS NOTED. WILL CONTINUE PLAN OF CARE.
--- NOTE | 2019-05-22 12:24 | NUR ---
RESTING ON HOME CPAP WITH EYES CLOSED. NO ACUTE DISTRESS NOTED. VSS. RESPIRATIONS STEADY AND UNLABORED. AWAKENS EASILY WHEN SPOKEN TO. WILL CONTINUE PLAN OF CARE.
--- NOTE | 2019-05-22 14:23 | NUR ---
NO ACUTE DISTRESS NOTED. NO CHANGE. VSS. ASSISTED WITH TURN Q2H. WILL CONTINUE PLAN OF CARE.
--- NOTE | 2019-05-22 18:30 | NUR ---
PT ARRIVED TO UNIT FROM ICU, ORIENTATED TO ROOM CL IN REACH
--- NOTE | 2019-05-22 18:30 | NUR ---
PT TRANSFERRED TO ROOM 2218 AT THIS TIME. REPORT CALLED TO RECIEVING NURSE. TRANSFERRED WITH ALL PERSONAL ITEMS INCLUDING HOME CPAP, VIA BED ACCOMPANIED BY HOSPITAL STAFF. NO ACUTE DISTRESS NOTED. VSS. BEFORE TRANSFER CHG BATH GIVEN. ALSO RT HAND PULLED OUT DURING PT MOVEMENT, DCD, CATHETER TIP INTACT. NEW IV PLACED TO LT FOREARM X 1 ATTEMPT, FLUSHES WELL. NO FURTHER ACTIONS.
--- NOTE | 2019-05-22 22:20 | NUR ---
PT ALERT & ORIENTED. PT AMBULATED TO TOILET FOR BOWEL MOVEMENT. C/O PAIN 06/18. GAVE 1 TAB NORCO-10 PO. NO OTHER NEEDS. CPAP ON FOR HS. WILL CONTINUE TO MONITOR.
[2019-05-23 05:42] VITALS: BP 100/80
--- NOTE | 2019-05-23 07:15 | NUR ---
REC'D IN BED AWAKE AND ALERT. RESP EVEN AND UNLABORED WITH NO DISTRESS NOTED. CAN EXPRESS NEEDS AND WANTS. NO C/O NOTEO OR VOICED. ASSESSMENT COMPLETED. C/L IN REACH AT BEDSIDE.
[2019-05-23 08:43] VITALS: BP 93/52
[2019-05-23 13:10] VITALS: BP 91/52
--- NOTE | 2019-05-23 14:19 | MORECARE ---
CASE MANAGEMENT DISCHARGE SUMMARY PATIENT: REED COX UNIT: [id number] ADM DATE: 05/20/19 AGE: 63 : 55 SEX: M ROOM/BED: D.2218 AUTHOR: LOISDOC PHYSICIAN: REFERRING PHYSICIAN: GRAY HALL MD DATE OF SERVICE: 05/23/19 Discharge Plan Patient Name: REED COX Facility: [facility]:[place] : 1955 Planned Disposition: Home or Self Care Anticipated Discharge Date: Discharge Date: Expected LOS: Initial Reviewer: [email or web address] Initial Review Date: 05/20/2019 Generated: 05/23/19 3:18 pm Comments DCP- Discharge Planning Updated by [id number]: Cony Potts on 05/23/19 1:[address] Patient Name: REED COX Admission Status: Elective Accout number: [id number] Admission Date: 05-20-2019 : 1955 Admission Diagnosis: Attending: NIMESH HALL Current LOS: 3 Anticipated DC Date: Planned Disposition: Home or Self Care Primary Insurance: [employer] ADV Discharge Planning Comments: CM met with patient to complete initial dc planning assessment. CM educated patient on the CM role and verbal consent given by patient to complete assessment. Patient lives at home with his where he is independent with his care. At discharge patient plans to return home and feels this is a safe discharge. CM discussed availability of home health, rehab services, and medical equipment. He stated that he has home O2, CPAP, nebulizer, portable O2, pulse ox & blood pressure machine at home. His DME of choice is [facility]. FITO signed and placed in chart. 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 Patient denied known discharge needs at this time. CM will continue to follow and will assist as needed with dc plans/needs. Ship'S Surveyor: Cony Potts DCPIA - Discharge Planning Initial Assessment Updated by [id number]: Cony Potts on 05/23/19 2:13 pm * Is the patient Alert and Oriented? Yes * How many steps to enter\exit or inside your home? * PCP [facility] * Pharmacy [facility] * Preadmission Environment Home with Family * ADLs Independent * Equipment CPAP Nebulizer Other Oxygen Walker * Other Equipment PULSE OX BLOOD PRESSURE MONITOR * List name and contact numbers for known caregivers / representatives who currently or will assist patient after discharge: YAMILEX () [phone] * Verbal permission to speak to the caregivers and representatives has been obtained from the patient. N/A * Community resources currently utilized None * Additional services required to return to the preadmission environment? No * Can the patient safely return to the preadmission environment? Yes * Has this patient been hospitalized within the prior 30 days at any hospital? No Coverage Notice Reviewer: [email or web address] Sabiha Potts Notice Issued Date-Time: 05/23/2019 14:10 Notice Type: Patient Choice Letter Notice Delivered To: Patient Relationship to Patient: Hypo Dipper Name: Delivery Method: - Nathaly Days: Prior Verbal Notification: Recipient Understood Notice: Yes Recipient Signature: Yes Med Rec Note Co-signed by Attending: Coverage Notice Comment: Patient Name: REED COX Page 19756 at 1419 All edits/amendments must be made on the electronic document DICTATION DATE: 05/23/198 RECONCILIATION ANALYST: JAKE 05/23/191417 RPT#: [id number] DC DATE: STATUS: ADM IN [facility] [address] [place] [address] END OF REPORT
--- NOTE | 2019-05-23 16:23 | NUR ---
I have reviewed this patient and I concur with the Shift Assessment completed by the Licensed Practical Nurse today this shift.
[2019-05-23 16:24] LABS: BASOPHILS 0.1 % (0-2); EOSINOPHILS 3.1 % (0-7); HEMATOCRIT 36.3 % (42.0-54.0); HEMOGLOBIN 12.5 g/dL (13.5-17.5); IMMATURE GRANULOCYTES 0.4 % (0-5); LYMPHOCYTES 9.2 % (15-50); MCH 34.2 pg (26.0-34.0); MCHC 34.4 g/dL (31.0-37.0); MCV 99.2 fL (80.0-100.0); MEAN PLATELET VOLUME 11.8 fL (7.4-10.4); MONOCYTES 7.2 % (2-11); RBC 3.66 10x6/uL (4.20-6.10); RDW 15.3 % (11.5-14.5)
[2019-05-23 16:26] LABS: PLATELET COUNT 114 10x3/uL (130-400)
[2019-05-23 16:35] LABS: ANION GAP 14.4 mmol/L (8-16); CALCIUM 7.7 mg/dL (8.5-10.1); CARBON DIOXIDE 28.1 mmol/L (21.0-32.0); CREATININE - SERUM 4.1 mg/dL (0.6-1.3); POTASSIUM - SERUM 4.5 mmol/L (3.5-5.1)
[2019-05-23 17:15] VITALS: BP 99/54
[2019-05-23 21:57] VITALS: BP 98/41
[2019-05-24 00:53] VITALS: BP 121/65
--- NOTE | 2019-05-24 04:30 | NUR ---
PATIENT GOT OUT OF BED SOUNDING BED ALARM AND WENT TO [facility]. VOIDED AND HAD A MODERATE LOOSE BROWN STOOL. SMALL AMOUNT OF BLOOD NOTED FROM INCISIONAL AREA ON ABDOMEN AREA CLEANED AND BANDAIDE APPLIED TO SITE. PT HAD COMPLETE BED BATH DONE WITH A LINEN CHANGE.
[2019-05-24 04:45] VITALS: BP 101/54
--- NOTE | 2019-05-24 05:31 | NUR ---
RETURNED TO BED SR UP X2 CALL LIGHT WITHIN REACH. BED ALARM REACTIVATED. INSTRUCTED PATIENT TO USE CALL BUTTON WHEN NEEDING HELP.
[2019-05-24 09:08] VITALS: BP 97/58
[2019-05-24 11:29] LABS: BASOPHILS 0.1 % (0-2); EOSINOPHILS 2.2 % (0-7); HEMATOCRIT 34.6 % (42.0-54.0); HEMOGLOBIN 11.7 g/dL (13.5-17.5); IMMATURE GRANULOCYTES 0.2 % (0-5); MCH 33.3 pg (26.0-34.0); MCHC 33.8 g/dL (31.0-37.0); MCV 98.6 fL (80.0-100.0); MEAN PLATELET VOLUME 12.5 fL (7.4-10.4); MONOCYTES 5.1 % (2-11); NEUTROPHILS 83.4 % (40-80); PLATELET COUNT 112 10x3/uL (130-400); RBC 3.51 10x6/uL (4.20-6.10); RDW 15.3 % (11.5-14.5); WBC 9.3 10x3/uL (4.8-10.8)
[2019-05-24 11:30] LABS: ANION GAP 16.7 mmol/L (8-16); CALCIUM 7.5 mg/dL (8.5-10.1); CARBON DIOXIDE 24.6 mmol/L (21.0-32.0); CREATININE - SERUM 4.1 mg/dL (0.6-1.3); POTASSIUM - SERUM 4.3 mmol/L (3.5-5.1)
[2019-05-24 13:28] VITALS: BP 93/43
--- NOTE | 2019-05-24 13:55 | OP ---
PATIENT NAME: REED COX MEDICAL RECORD: [id number] :55 LOCATION:[facility] ADMISSION DATE:05/20/19 SURGEON: EDE NORMAN MD DATE OF OPERATION: 05/20/2019 This is a cosurgeon case. UROLOGIST: Dr. Ede Arce. GENERAL SURGEON: Dr. Ede Norman. PROCEDURE: Hand-assisted laparoscopic surgery -- left radical nephrectomy. BLOOD LOSS: Please see the anesthesia sheet and Dr. Arce's note. Due to the complexity of the procedure, it was necessary to have 2 attending surgeons perform the procedure. OPERATIVE COURSE: The patient was conveyed to the operating room electively on 05/20/2019. My involvement in the operation included assistance with the initial skin incisions. Entry into the peritoneal cavity. Placement of the GelPort. Insertion of one of the trocars. Irrigation and aspiration. Some running of the camera. I incised along the left white line of Toldt with the Harmonic scalpel. I folded the left colon medially. I performed some retroperitoneal dissection. I incised along the retroperitoneal attachments behind the spleen. I elevated the pancreas and kept it out of the operative field. I performed the retroperitoneal dissection bluntly. I ligated and divided the gonadal vein. I mobilized the lateral aspect and posterior aspect of the kidney. I performed numerous ligation and division of hilar vessels with the linear cutting stapler. I also clipped some of the hilar vessels with the endoscopic clipper. I assisted with extending the paramedian incision and also retrieval of the specimen. I did some closure of the fascia with a running 0 looped PDS. I then closed the skin with metallic clips. TRANSINT:[id number] Voice Confirmation ID: [id number] DOCUMENT ID: [id number] EDE NORMAN MD at 1355 CC: [id number] DICTATION DATE: 05/20/19 1619 HUMAN INTELLIGENCE: 05/20/19 162 ADM IN [facility] [address] [id number]
[2019-05-24 17:04] VITALS: BP 98/51
--- NOTE | 2019-05-24 18:38 | NUR ---
PT ALERT AND ORIENTED, EATING SUPPER. FAMILY AT BEDSIDE. DENIES ANY NEEDS AT THIS TIME. WILL CONTINUE TO MONITOR.
--- NOTE | 2019-05-24 20:00 | NUR ---
ASSESSMENT PER FLOWSHEET. LONG INCISION TO LEFT ABDOMEN WITH ROSALINA C/D/I WITH DRSG IN PLACE TWO LAP SITE NOTED WITH ROSALINA C/D/I. DENIES NEEDS TONY TO BS DRAINAGE WITH EMILIA COLORED URINE. SR UP X2 CALL LIGHT WITHIN REACH. ENRIQUE MAT IN PLACE AND ACTIVATED.
[2019-05-24 21:56] VITALS: BP 101/48
--- NOTE | 2019-05-24 22:15 | NUR ---
MEDS GIVEN PER JAN. PT HAS ON HIS CPAP MACHINE.
--- NOTE | 2019-05-25 | NUR ---
EYES CLOSED RESPIRATIONS WITH EASE AND UNLABORED.
[2019-05-25 01:32] VITALS: BP 124/54
--- NOTE | 2019-05-25 03:00 | NUR ---
RESTING QUIETLY DENIES NEEDS.
--- NOTE | 2019-05-25 04:00 | NUR ---
RESTING QUIETLY CPAP IN PLACE IV OF NS AT 125CC'S/H IN PLACE TO RT HAND SITE CLEAR. REFUSES SCD'S.
[2019-05-25 06:03] LABS: ANION GAP 16.2 mmol/L (8-16); CARBON DIOXIDE 22.8 mmol/L (21.0-32.0); CREATININE - SERUM 3.7 mg/dL (0.6-1.3)
[2019-05-25 06:43] LABS: BASOPHILS 0.1 % (0-2); EOSINOPHILS 3.9 % (0-7); HEMATOCRIT 35.4 % (42.0-54.0); HEMOGLOBIN 12.1 g/dL (13.5-17.5); IMMATURE GRANULOCYTES 0.3 % (0-5); LYMPHOCYTES 7.1 % (15-50); MCH 33.7 pg (26.0-34.0); MCHC 34.2 g/dL (31.0-37.0); MCV 98.6 fL (80.0-100.0); MEAN PLATELET VOLUME 12.4 fL (7.4-10.4); MONOCYTES 8.6 % (2-11); PLATELET COUNT 115 10x3/uL (130-400); RBC 3.59 10x6/uL (4.20-6.10); RDW 15.4 % (11.5-14.5); WBC 9.8 10x3/uL (4.8-10.8)
--- NOTE | 2019-05-25 07:55 | NUR ---
PT RESTING IN BED. CPAP ON. NO S/S OF ACUTE DISTRESS. CL IN PLACE.
[2019-05-25 12:46] VITALS: BMI 48.8
[2019-05-25 12:57] VITALS: BP 116/54
[2019-05-25 19:21] VITALS: BP 98/53
--- NOTE | 2019-05-25 19:41 | NUR ---
STARTED BLADDER TRAINING AT 1630. NORCO GIVEN FOR PAIN PER MD ORDER. NO S/S OF ACUTE DISTRESS. CL IN PLACE.
[2019-05-25 21:25] VITALS: BP 107/55
[2019-05-26 02:22] VITALS: BP 98/49
[2019-05-26 05:55] VITALS: BP 117/57
[2019-05-26 06:25] LABS: BASOPHILS 0.2 % (0-2); EOSINOPHILS 3.7 % (0-7); HEMATOCRIT 35.3 % (42.0-54.0); HEMOGLOBIN 11.9 g/dL (13.5-17.5); IMMATURE GRANULOCYTES 0.5 % (0-5); LYMPHOCYTES 8.3 % (15-50); MCH 33.3 pg (26.0-34.0); MCHC 33.7 g/dL (31.0-37.0); MCV 98.9 fL (80.0-100.0); MEAN PLATELET VOLUME 12.9 fL (7.4-10.4); MONOCYTES 10.4 % (2-11); NEUTROPHILS 76.9 % (40-80); PLATELET COUNT 123 10x3/uL (130-400); RBC 3.57 10x6/uL (4.20-6.10); RDW 15.5 % (11.5-14.5); WBC 10.6 10x3/uL (4.8-10.8)
[2019-05-26 06:39] LABS: ANION GAP 15.6 mmol/L (8-16); CALCIUM 8.4 mg/dL (8.5-10.1); CARBON DIOXIDE 24.2 mmol/L (21.0-32.0); CREATININE - SERUM 3.2 mg/dL (0.6-1.3); POTASSIUM - SERUM 3.8 mmol/L (3.5-5.1)
--- NOTE | 2019-05-26 07:13 | NUR ---
PT IS RESTING IN BED WITH EYES CLOSED. CPAP ON. RESPIRATIONS ARE EVEN AND UNLABORED. PT IS EASILY AROUSED WITH VERBAL STIMULATION. PT REPORTS THAT HE IS "SLEEPY" AND WOULD LIKE TO REST. PT DENIES HAVING PASSED GAS. BS ARE HYPOACTIVE X 4 QUADRANT. ABDOMINAL INCISION NOTED WITH DRESSING IN PLACE C/D/I. CLIPS X 4 NOTED TO LOWER LEFT SIDE AND 4 CLIPS NOTED TO LUQ. PT DENIES PRESENCE OF N/V/PAIN. BED IS IN THE LOWEST POSITION. CALL LIGHT AND BEDSIDE TABLE ARE WITHIN REACH. SIDE RAILS X 2. ENRIQUE ALARM IS ON AND WORKING. PT DENIES FURTHER NEEDS. WILL CONT TO MONITOR.
[2019-05-26 09:41] VITALS: BP 130/80
--- NOTE | 2019-05-26 11:43 | NUR ---
PT IS RESTING IN BED WITH EYES OPEN. HOB ELEVATED TO 30 DEGREES. PT WITH HOME CPAP ON. PT REPORTS DIFFICULTY AND PAINFUL BREATHING. DR CHAUHAN OFFICE CALLED TO NOTIFY OF PT STATUS. VSS SEE FLOW SHEET. PT PROMPTED TO GET OUT OF BED, PT STATES, "I JUST DONT FEEL GOOD TODAY AND I JUST CANT TAKE A GOOD BREATH". PT WITH QUESTIONS REGARDING SEAL ON HOME CPAP. RESPIRATORY NOTIFIED TO COME TO ROOM TO ANSWER PT QUESTIONS. WILL WAIT FOR FURTHER ORDERS. WILL MONITOR PT.
--- NOTE | 2019-05-26 12:00 | NUR ---
DR CHAUHAN TELEPHONE ORDERS FOLLOWS. BLADDER SCAN PT. IF SCAN SHOWS >300ML OF URINE IN BLADDER INSERT TONY CATHETER. ORDER CHEST X RAY. ORDERS PLACED IN EHR. BLADDER SCAN COMPLETED AND SHOWS 245ML OF FLUID IN BLADDER. PT EDUCATED ON IMPORTANCE OF OOB. PT AGREES TO SIT ON SIDE OF BD WHEN LUNCH TRAY ARRIVES. PT INFORMED OF NEED FOR URINE. PT VERBALIZES UNDERSTANDING, BUT DENIES URGE TO URINATE AT THIS TIME. WILL CONT TO MONITOR.
--- NOTE | 2019-05-26 13:00 | NUR ---
PT SITS UP TO SIDE OF BED TO EAT LUNCH TRAY. PT DENIES URGE TO URINATE AT THIS TIME. WILL CONT TO PROMPT FOR TOILETING.
--- NOTE | 2019-05-26 13:22 | NUR ---
PT SITTING AT SIDE OF BED. DRESSING TO ABDOMEN CHANGED DUE TO SANGUINOUS DRAINAGE NOTED TO DRESSING. PT REPORTS URGE TO URINATE. URINAL GIVEN. TO PT.
[2019-05-26 13:51] VITALS: BP 131/71
[2019-05-26 17:46] VITALS: BP 108/54
[2019-05-26 21:13] VITALS: BP 115/60
[2019-05-27 00:29] VITALS: BP 124/74
--- NOTE | 2019-05-27 05:06 | NUR ---
ASSESSED AT THE BEGINNING OF THE SHIFT. PT IS ALERT AND ORIENTED, ABLE TO VERBALIZE NEEDS. HE HAS O2 AT 3 LITERS PER N/C. HE HAS A DRESSING TO HIS ABD WHICH IS CLEAN DRY AND INTACT. WE HAVE GIVEN HIM PAIN MEDS REQUESTED AND HE HAS NOT COMPLAINED MUCH ABOUT PAIN. DURING THE NIGHT HE WAS UP AT THE BEDSIDE TRYING TO URINATED BUT WAS UNABLE AND STATED HE FELT LIKE HE NEEDED TO. WE GOT THE BLADDER SCANNER AND IT SHOWED HE ONLY HAD 58 CC'S IN HIS BLADDER. AT THAT POINT WE TALKED ABOUT IF HE WAS FEELING FULL AND OFFERED TO TRY A TONY EVEN THOUGH THE SCANNER SAID HE DID NOT HAVE URINE. HE STATED HE DID NOT FEEL THAT FULL. WE WILL CONTINUE TO MONITOR AND TALK WITH THE MD THIS AM. AT THIS TIME HE IS ASLEEP AND RESTING QUIET.
[2019-05-27 05:28] VITALS: BP 125/70
--- NOTE | 2019-05-27 07:28 | NUR ---
PT LYING IN BED HAS CPAP ON. NO S/S OF DISTRESS, BED IN LOW POSITION, CL IN REACHNO NEEDS VOICED, CONTNUE WITH PLAN OF CARE
[2019-05-27 07:33] LABS: ANION GAP 14.7 mmol/L (8-16); CALCIUM 8.7 mg/dL (8.5-10.1); CARBON DIOXIDE 24.7 mmol/L (21.0-32.0); CREATININE - SERUM 2.7 mg/dL (0.6-1.3)
[2019-05-27 07:38] LABS: POTASSIUM - SERUM 4.4 mmol/L (3.5-5.1)
[2019-05-27 08:01] LABS: BASOPHILS 0.2 % (0-2); EOSINOPHILS 2.5 % (0-7); HEMATOCRIT 37.3 % (42.0-54.0); HEMOGLOBIN 12.6 g/dL (13.5-17.5); LYMPHOCYTES 8.9 % (15-50); MCH 33.3 pg (26.0-34.0); MCHC 33.8 g/dL (31.0-37.0); MCV 98.7 fL (80.0-100.0); MEAN PLATELET VOLUME 12.9 fL (7.4-10.4); MONOCYTES 10.7 % (2-11); NEUTROPHILS 76.7 % (40-80); PLATELET COUNT 168 10x3/uL (130-400); RBC 3.78 10x6/uL (4.20-6.10); RDW 15.7 % (11.5-14.5); WBC 11.9 10x3/uL (4.8-10.8)
[2019-05-27 08:20] VITALS: BP 124/64
--- NOTE | 2019-05-27 11:33 | NUR ---
PT SPOUSE CALLED IN REGARDS TO POSSIBLE DC AND PT BEING ON ABX. ADVISED HER PT ABX IS PO AND PT MAY STILL BE DC TODAY BUT SO FAR NO ORDERS. WILL CONTINUE WITH PLAN OF CARE
[2019-05-27 12:25] VITALS: BP 112/65
--- NOTE | 2019-05-27 13:45 | NUR ---
I have reviewed this patient and I concur with the Shift Assessment completed by the Licensed Practical Nurse today this shift.
[2019-05-27 15:48] VITALS: BP 96/52
--- NOTE | 2019-05-27 15:52 | NUR ---
PT SITTING UP AT BEDSIDE EATING LUNCH STATD DR HALL CAME BY PT WAS ASLEEP PT STATED THIS IS THE BEST SLEEP HE HAS HAD IN WEEKS AND READY TO GET HOME, ADVISED PER DR HALL PT MAY BE IN OVER WEEKEND TO ENSURE STRENGTH AND THAT HE IS READY FOR DC. CL IN REACH CONTINUE WITH PLAN OF CARE
--- NOTE | 2019-05-27 19:15 | NUR ---
RECEIVED CARE FROM DAY NURSE. LYING IN BED ON BACK WITH EYES CLOSED. RESP EVEN AND UNALBORED WITH HOME C-PAP IN USE. CALL LIGHT AT SIDE. IV TO RIGHT HAND SL.
[2019-05-27 20:00] VITALS: BP 118/67
[2019-05-28] VITALS: BP 118/62
[2019-05-28 04:00] VITALS: BP 138/72
--- NOTE | 2019-05-28 04:28 | NUR ---
I have reviewed this patient and I concur with the Shift Assessment completed by the Licensed Practical Nurse today this shift.
[2019-05-28 05:43] LABS: HEMOGLOBIN 12.9 g/dL (13.5-17.5); MCH 32.8 pg (26.0-34.0); MCHC 33.1 g/dL (31.0-37.0); MCV 99.2 fL (80.0-100.0); MEAN PLATELET VOLUME 12.6 fL (7.4-10.4); PLATELET COUNT 202 10x3/uL (130-400); RBC 3.93 10x6/uL (4.20-6.10); RDW 15.8 % (11.5-14.5); WBC 11.9 10x3/uL (4.8-10.8)
[2019-05-28 05:44] LABS: ANION GAP 14.5 mmol/L (8-16); CALCIUM 8.8 mg/dL (8.5-10.1); CARBON DIOXIDE 26.5 mmol/L (21.0-32.0); CREATININE - SERUM 2.4 mg/dL (0.6-1.3)
[2019-05-28 07:52] LABS: EOSINOPHILS 1 % (0-7); LYMPHOCYTES 18 % (15-50); MONOCYTES 3 % (2-11); NEUTROPHILS 77 % (40-80); PLATELET ESTIMATE NORMAL
[2019-05-28 09:16] VITALS: BP 117/60
--- NOTE | 2019-05-28 10:42 | NUR ---
PT IS READY TO BE DC STATED HE WAS WAITING ON DR PANIAGUA TO DC HIM BECAUSE THAT IS HIS PRIMARY,PER PT CHART DR CHAUHAN AND DR HALL OVER PT CARE AT HOSPITAL, CALLED DARVIN CLINE TO CONFIRM, CONTINUE WITH PLAN OF CARE. PT ASKED FOR ABD BINDER WELL AND PAIN MEDICATION. WILL ADMINISTER PRN PAIN MEDS AND INQUIRE ON BINDER, CONTINUE WITH PLAN OF CARE
[2019-05-28 12:54] VITALS: BP 113/64
--- NOTE | 2019-05-28 14:19 | NUR ---
I have reviewed this patient and I concur with the Shift Assessment completed by the Licensed Practical Nurse today this shift.
--- NOTE | 2019-05-28 16:06 | NUR ---
PT GOT UP NEFTALY RESTROOM AND BACK TO BED. INCISION STARTED TO DRAIN AND FAMILY CONCERNED STATING DRAINING WAS ALOT, PT DRAINAGE VERY SCANT, CLEANED AREA WITH WOUND COMMUNICATION ASSISTANT PT FAMILY WOULD LIKE TO SPEAK WITH DR HALL, WILL PAGE
[2019-05-28 18:29] VITALS: BP 122/54
[2019-05-28 20:00] VITALS: BP 103/50
--- NOTE | 2019-05-28 21:30 | NUR ---
RETURNED CALL TO PTs , YAMILEX. VERBALIZED MANY CONCERNS REGAURDING PTs CURRENT HEALTH AND WELLNESS. SHE STATES SHE VISITED EARLIER IN THE DAY AND THAT PTs SPEECH DID NOT SOUND NORMAL FOR PT. ALSO, REPORTS HE WAS LETHARGIC, WEAK AND SHAKY. SHE VOICED CONCERN ABOUT HIS LACK OF APPETITE AND CURIOUS ABOUT STATE OF SUGICAL SITE AFTER EPISODE OF BLEEDING THAT FOLLOWED EXCESSIVE COUGHING BY PT DURING VISIT. YAMILEX ALSO REQUESTED THAT PT WEAR ABDOMINAL BINDER. ALSO, REPORTS PT IS A HEAVY DRINKER AND DRINKS WHISKEY AND COKE FOR HOURS EVERY NIGHT AND SUGGESTS MAYBE HE IS GOING THROUGH WITHDRAWLS. REQUESTS THAT HEALTH CARE TEAM CALL AND NOTIFY HER WILL ALL UPDATES AND CHANGES GEREMIAS DUE TO 'S POOR RELAY. YAMILEX: [phone].
[2019-05-29] VITALS: BP 100/47
--- NOTE | 2019-05-29 02:50 | NUR ---
AID INQUIRED IF PT DESIRED BATH. PT REFUSED. ENCOURAGED PT TO GET BATHED AND LINENS AND GOWNS CHANGED, PT REFUSED, STATING HE, "MIGHT FEEL UP TO IT TOMORROW NIGHT."
--- NOTE | 2019-05-29 05:07 | NUR ---
I have reviewed this patient and I concur with the Shift Assessment completed by the Licensed Practical Nurse today this shift.
[2019-05-29 05:45] VITALS: BP 107/54
[2019-05-29 06:35] LABS: ANION GAP 15.3 mmol/L (8-16); CALCIUM 8.8 mg/dL (8.5-10.1); CARBON DIOXIDE 23.2 mmol/L (21.0-32.0); CREATININE - SERUM 2.3 mg/dL (0.6-1.3); POTASSIUM - SERUM 4.5 mmol/L (3.5-5.1)
[2019-05-29 06:51] LABS: BASOPHILS 0.2 % (0-2); EOSINOPHILS 2.2 % (0-7); HEMATOCRIT 36.8 % (42.0-54.0); HEMOGLOBIN 12.3 g/dL (13.5-17.5); IMMATURE GRANULOCYTES 1.9 % (0-5); LYMPHOCYTES 7.6 % (15-50); MCHC 33.4 g/dL (31.0-37.0); MCV 98.7 fL (80.0-100.0); MEAN PLATELET VOLUME 12.5 fL (7.4-10.4); MONOCYTES 7.4 % (2-11); NEUTROPHILS 80.7 % (40-80); PLATELET COUNT 253 10x3/uL (130-400); RBC 3.73 10x6/uL (4.20-6.10)
--- NOTE | 2019-05-29 08:00 | NUR ---
ASSESSMENT PER FLOW SHEET. PT IS WITHOUT DISTRESS.MONITOR FOR NEEDS
[2019-05-29 08:44] VITALS: BP 104/54
--- NOTE | 2019-05-29 16:40 | NUR ---
CONSENT TO CHART. SIGNED PAPERS PER PT REQUEST. PASSWORD SET UP WITH PT AND
[2019-05-29 18:03] VITALS: BP 104/49
--- NOTE | 2019-05-29 18:12 | NUR ---
PT IS WITHOUT CHANGE FROM INITIAL SHIFT ASSESSMENT.CONT PLAN OF CARE
--- NOTE | 2019-05-29 19:15 | NUR ---
RECEIVED CARE FROM DAY NURSE. LYING IN BED WITH EYES CLOSED. RESP EVEN AND UNLABORED. CALL LIGHT AT SIDE. IV SL TO PATENT RIGHT HAND.
[2019-05-29 20:00] VITALS: BP 106/52
--- NOTE | 2019-05-30 03:37 | NUR ---
I have reviewed this patient and I concur with the Shift Assessment completed by the Licensed Practical Nurse today this shift.
[2019-05-30 04:00] VITALS: BP 100/58
[2019-05-30 06:08] LABS: HEMATOCRIT 36.7 % (42.0-54.0); HEMOGLOBIN 12.2 g/dL (13.5-17.5); MCH 33.1 pg (26.0-34.0); MCHC 33.2 g/dL (31.0-37.0); MCV 99.5 fL (80.0-100.0); MEAN PLATELET VOLUME 12.3 fL (7.4-10.4); PLATELET COUNT 271 10x3/uL (130-400); RBC 3.69 10x6/uL (4.20-6.10); RDW 16.3 % (11.5-14.5); WBC 16.4 10x3/uL (4.8-10.8)
[2019-05-30 06:14] LABS: ALBUMIN 2.2 g/dL (3.4-5.0); ALKALINE PHOSPHATASE 169 U/L (46-116); ALT (SGPT) 48 U/L (10-68); BILIRUBIN - TOTAL 0.51 mg/dL (0.2-1.3); CALC OSMOLALITY 286 mosm/kg (275-300); CALCIUM 8.2 mg/dL (8.5-10.1); CARBON DIOXIDE 22.9 mmol/L (21.0-32.0); CHLORIDE - SERUM 104 mmol/L (98-107); CREATININE - SERUM 2.3 mg/dL (0.6-1.3); GLUCOSE 88 mg/dL (74-106); MAGNESIUM - SERUM 2.3 mg/dL (1.8-2.4); PHOSPHOROUS 3.4 mg/dL (2.5-4.9); POTASSIUM - SERUM 4.6 mmol/L (3.5-5.1); PROTEIN - SERUM 5.9 g/dL (6.4-8.2); SODIUM 138 mmol/L (136-145); UREA NITROGEN 45 mg/dL (7-18); eGFR NON AFRICAN AMERICAN 31 mL/min (90-120)
[2019-05-30 06:16] LABS: TROPONIN-I < 0.017 ng/mL (0.000-0.060)
[2019-05-30 08:59] LABS: EOSINOPHILS 2 % (0-7); LYMPHOCYTES 4 % (15-50); MONOCYTES 13 % (2-11); NEUTROPHILS 75 % (40-80); PLATELET ESTIMATE NORMAL
[2019-05-30 09:01] LABS: ANISOCYTOSIS OCC; PLATELET MORPHOLOGY PLT CLUMPS PRESENT
--- NOTE | 2019-05-30 12:00 | NUR ---
TO OR VIA BED
[2019-05-30 13:38] VITALS: BP 126/62
--- NOTE | 2019-05-30 13:40 | NUR ---
PT IS BACK FROM PACU VIA BED.HE IS WITHOUT DISTRESS,VSS. WOUND VAC DRESSING IN PLACE TO LEFT ABDOMEN.WOUND VAC ON AND FUNCTIONING.FAMILY AT [facility]. CALL LIGHT USE INSTRUCTED.
[2019-05-30 14:11] LABS: BASOPHILS 0.1 % (0-2); EOSINOPHILS 1.7 % (0-7); HEMATOCRIT 37.7 % (42.0-54.0); HEMOGLOBIN 12.8 g/dL (13.5-17.5); IMMATURE GRANULOCYTES 1.9 % (0-5); MCH 33.7 pg (26.0-34.0); MCV 99.2 fL (80.0-100.0); MEAN PLATELET VOLUME 11.9 fL (7.4-10.4); MONOCYTES 6.1 % (2-11); NEUTROPHILS 83.2 % (40-80); PLATELET COUNT 299 10x3/uL (130-400); RDW 16.5 % (11.5-14.5); WBC 16.2 10x3/uL (4.8-10.8)
--- NOTE | 2019-05-30 19:12 | NUR ---
AWAKENS INT,STILL VERY SLEEPY. WITHOUT SIGNS OF DISTRESS.CONT PLAN OF CARE
[2019-05-30 20:00] VITALS: BP 105/68
[2019-05-30 22:39] LABS: HEMOGLOBIN 13.3 g/dL (13.5-17.5); MCH 34.4 pg (26.0-34.0); MCHC 34.1 g/dL (31.0-37.0); MCV 100.8 fL (80.0-100.0); MEAN PLATELET VOLUME 11.5 fL (7.4-10.4); PLATELET COUNT 323 10x3/uL (130-400); RBC 3.87 10x6/uL (4.20-6.10); RDW 16.8 % (11.5-14.5); WBC 18.2 10x3/uL (4.8-10.8)
[2019-05-30 22:56] LABS: LYMPHOCYTES 5 % (15-50); NEUTROPHILS 95 % (40-80); PLATELET ESTIMATE NORMAL
[2019-05-31] VITALS: BP 125/58
--- NOTE | 2019-05-31 03:06 | NUR ---
ASSESSMENT PER FLOWSHEET. SLEEPING WITH O2 ON AT 2L/M PER NC. SALINE LOCK TO RT HAND PATENT WOUND VAC IN PLACE TO LEFT ABDOMEN SCD'S ON SR UP X3 CALL LIGHT WITHIN REACH ENRIQUE MAT IN USE WITH YELLOW SAFETY MEASURES IN USE.
[2019-05-31 04:00] VITALS: BP 155/57
[2019-05-31 05:01] LABS: BASOPHILS 0.1 % (0-2); HEMATOCRIT 37.8 % (42.0-54.0); HEMOGLOBIN 12.5 g/dL (13.5-17.5); IMMATURE GRANULOCYTES 1.6 % (0-5); LYMPHOCYTES 4.4 % (15-50); MCH 32.8 pg (26.0-34.0); MCHC 33.1 g/dL (31.0-37.0); MCV 99.2 fL (80.0-100.0); MONOCYTES 5.6 % (2-11); NEUTROPHILS 86.3 % (40-80); PLATELET COUNT 380 10x3/uL (130-400); RBC 3.81 10x6/uL (4.20-6.10); RDW 16.5 % (11.5-14.5); WBC 16.7 10x3/uL (4.8-10.8)
[2019-05-31 05:15] LABS: ALBUMIN 2.2 g/dL (3.4-5.0); ANION GAP 14.9 mmol/L (8-16); BILIRUBIN - TOTAL 0.46 mg/dL (0.2-1.3); CALCIUM 8.7 mg/dL (8.5-10.1); CARBON DIOXIDE 24.3 mmol/L (21.0-32.0); CREATININE - SERUM 2.2 mg/dL (0.6-1.3); POTASSIUM - SERUM 4.2 mmol/L (3.5-5.1); PROTEIN - SERUM 6.9 g/dL (6.4-8.2)
[2019-05-31 08:46] VITALS: BP 128/65
--- NOTE | 2019-05-31 11:49 | NUR ---
WAS INFORMED BY CHARGE NURSE THAT PT WAS OUT OF BED TRYING TO GO TO BATHROOM. PT HAS BEEN INFORMED TO NOT TO GET UP OUT OF BED UNASSISTED AND TO USE THE CALL LIGHT AND WAIT. PT ALSO HAS BEEN EDUCATED ON THE POSSIBLE OF WHAT COULD HAPPEN IS HIS WOUND VAC IS PULLED OFF. PT IS ALSO NOTED TO TWO OPEN AREA NOTED TO HIS BUTTOCK. ENRIQUE ALARM IN USE AND WORKING PROPER. FAMILY/FRIEND AT BEDSIDE.
[2019-05-31 13:23] VITALS: BP 116/59; Ht 185.4 cm; Wt 167.4 kg
--- NOTE | 2019-05-31 16:04 | NUR ---
I have reviewed this patient and I concur with the Shift Assessment completed by the Licensed Practical Nurse today this shift.
[2019-05-31 20:19] VITALS: BP 102/55
--- NOTE | 2019-05-31 20:30 | NUR ---
ASSESSMENT PER FLOWSHEET. IV PATENT RT HAND WITH MVI AT 100CC'S/HR SITE CLEAR. WOUND VAC PATENT TO ABDOMINAL INCISION. PT TOOK OFF SCD'S. O2 ON AT 3L/M PER NC.
--- NOTE | 2019-05-31 21:15 | NUR ---
MES GIVEN PER MAR.
[2019-06-01 00:58] VITALS: BP 105/66
--- NOTE | 2019-06-01 01:00 | NUR ---
PATIENT PULLS OUT IV OUT OF BED TO BR ASSISTED BACK TO BED SR UP X2 CALL LIGHT WITHIN REACH.
[2019-06-01 04:54] VITALS: BP 131/70
[2019-06-01 05:43] LABS: BASOPHILS 0.1 % (0-2); EOSINOPHILS 2.5 % (0-7); HEMOGLOBIN 12.5 g/dL (13.5-17.5); IMMATURE GRANULOCYTES 1.6 % (0-5); LYMPHOCYTES 6.2 % (15-50); MCH 32.7 pg (26.0-34.0); MCHC 32.9 g/dL (31.0-37.0); MCV 99.5 fL (80.0-100.0); MEAN PLATELET VOLUME 12.1 fL (7.4-10.4); MONOCYTES 6.7 % (2-11); NEUTROPHILS 82.9 % (40-80); PLATELET COUNT 366 10x3/uL (130-400); RBC 3.82 10x6/uL (4.20-6.10); RDW 16.6 % (11.5-14.5); WBC 16.1 10x3/uL (4.8-10.8)
[2019-06-01 05:48] LABS: ALBUMIN 2.2 g/dL (3.4-5.0); ANION GAP 15.3 mmol/L (8-16); BILIRUBIN - TOTAL 0.52 mg/dL (0.2-1.3); CALCIUM 8.6 mg/dL (8.5-10.1); CARBON DIOXIDE 22.9 mmol/L (21.0-32.0); CREATININE - SERUM 2.2 mg/dL (0.6-1.3); POTASSIUM - SERUM 4.2 mmol/L (3.5-5.1)
--- NOTE | 2019-06-01 08:45 | NUR ---
PATIENT IN BED WITH EYES CLOSED RESTING QUIETLY AT THIS TIME. IV INTACT. CALL LIGHT WITHIN REACH.
[2019-06-01 08:58] VITALS: BP 121/67
--- NOTE | 2019-06-01 11:25 | NUR ---
PATIENT UP AMBULATING WITH SON. TOLERATED OK BUT NEEDS O2 TO AMBULATE. BACK TO ROOM AND O2 PLACED BACK ON. WILL CONTINUE TO MONITOR. CALL LIGHT WITHINR EACH.
[2019-06-01 12:49] VITALS: BP 109/55
--- NOTE | 2019-06-01 15:00 | NUR ---
NUTRITION F/U PT REMAINS IN ISOLATION. TOLERATING DIABETIC DIET. PO INTAKE 25% AVERAGE RECENT MEALS. WILL CONTINUE TO PROVIDE DIET. RD FOLLOWING
--- NOTE | 2019-06-01 15:00 | NUR ---
PATIENT IN BED WITH EYES CLOSED RESTING QUIETLY.
[2019-06-01 15:58] VITALS: BP 114/55
--- NOTE | 2019-06-01 18:00 | NUR ---
PATIENT IV PLACED IN LEFT HAND X 1 STICK. TOLERATED WITH SMALL AMOUNT OF PAIN. NO COMPLAINTS. MVI STARTED. CALL LIGHT WITHIN REACH.
--- NOTE | 2019-06-01 18:46 | NUR ---
PATIENT IN BED WITH EYES CLOSED RESTING QUIETLY WITH IV INTACT. NOCOMPLAINTS OR SIGNS OF DISTRESS. CALL LIGHT WITHIN REACH.
--- NOTE | 2019-06-01 20:00 | NUR ---
ASSESSMENT PER FLOWSHEET. IV PATENT LEFT HAND OF MVI AT 100CC'S/HR. SIE CLEAR ABDOMINAL INCISION WITH WOUND VAC IN PLACE AND PATENT SR UP X2 CALL LIGHT WITHIN REACH ENRIQUE MET TO BED FOR SAFETY MEASURES. DOOR OPENED. O2 AT 3L/M PER NC. UP TO BR VOIDS. ASSISTED BACK TO BED.
[2019-06-01 20:49] VITALS: BP 100/49
--- NOTE | 2019-06-01 21:00 | NUR ---
MEDS GIVEN PER JAN. PT TALKING ON PHONE WITH SON. INFORMED SON WOULD NEEDED SURGERY PERMITS SIGNED BY TOMORROW. PT'S SON IS ACTUALLY IN HIS CAR SITTING IN THE PARKING LOT. WILL BE UP SOON
--- NOTE | 2019-06-01 23:00 | NUR ---
SON IS HERE SIGNED SURGERY PERMITS EXPLAINED TO THE SON THAT THE ACTUAL SURGERY DATE WAS FOR Thursday06/02/19. NOT THURSDAY. PT'S PHONED AND DATE WAS CONFIRMED.
--- NOTE | 2019-06-02 00:38 | NUR ---
RESTING IN BED SR UP X2. ENRIQUE MAT ACTIVATED.
[2019-06-02 00:39] VITALS: BP 94/42
--- NOTE | 2019-06-02 00:40 | NUR ---
NPO FOR SURGERY IN AM RESTING QUIETLY DENIES NEEDS.
[2019-06-02 04:54] VITALS: BP 101/44
[2019-06-02 07:22] LABS: BASOPHILS 0.1 % (0-2); EOSINOPHILS 3.7 % (0-7); HEMOGLOBIN 12.2 g/dL (13.5-17.5); IMMATURE GRANULOCYTES 1.4 % (0-5); LYMPHOCYTES 6.2 % (15-50); MCH 33.1 pg (26.0-34.0); MCV 100.3 fL (80.0-100.0); MEAN PLATELET VOLUME 11.7 fL (7.4-10.4); NEUTROPHILS 81.6 % (40-80); PLATELET COUNT 380 10x3/uL (130-400); RBC 3.69 10x6/uL (4.20-6.10); WBC 14.5 10x3/uL (4.8-10.8)
[2019-06-02 07:43] LABS: ALBUMIN 2.2 g/dL (3.4-5.0); ANION GAP 11.9 mmol/L (8-16); BILIRUBIN - TOTAL 0.44 mg/dL (0.2-1.3); CALCIUM 8.3 mg/dL (8.5-10.1); CARBON DIOXIDE 25.2 mmol/L (21.0-32.0); CREATININE - SERUM 1.9 mg/dL (0.6-1.3); POTASSIUM - SERUM 4.1 mmol/L (3.5-5.1); PROTEIN - SERUM 6.7 g/dL (6.4-8.2)
[2019-06-02 08:22] VITALS: BP 113/62
[2019-06-02 13:15] VITALS: BP 122/65
[2019-06-02 16:54] VITALS: BP 120/59
--- NOTE | 2019-06-02 18:32 | NUR ---
PT RESTING IN BED. NO SIGNS OF DISTRESS. IV TO LEFT HAND NO REDNESS OR TENDERNESS. ON TELEMETRY 52 SB. ON 2L NC. HAS WOUND VAC TO ABDOMEN IS GETTING CHANGED OUT IN SURGERY IN AM. DENIES ANY FUTHER NEED AT THIS TIME. CALL LIGHT IN REACH. BED LOW POSITION. FAMILY AT BEDSIDE. ALL FALL PRECAUTIONS IN PLACE.
--- NOTE | 2019-06-02 19:00 | NUR ---
REPORT RECEIVED AND CARE OF PT ASSUMED. PT LYING IN HIGH ROMANO'S POSITION VISITING WITH SPOUSE. LEFT FA PATENT WITH MVI INFUSING AT 125 ML/HR. WOUND VAC IN PLACE ON LEFT ABDOMEN, WELL COMPRESSED WITH NO LEAKAGE ALARMS. BED ALARM IN USE. WILL MONITOR FOR NEEDS.
--- NOTE | 2019-06-02 19:27 | NUR ---
GAVE TYLENOL 3 X2 TABS PER PRN ORDER, PER REQUEST FOR HEADACHE. WILL MONITOR FOR EFFECTIVENESS.
--- NOTE | 2019-06-02 20:44 | NUR ---
HS MEDICATIONS GIVEN. MIXED WHISKEY WITH COLA PER PT REQUEST. WILL CONTINUE TO MONITOR FOR NEEDS.
[2019-06-02 21:44] VITALS: BP 92/47
[2019-06-03] VITALS: BP 101/62
[2019-06-03 04:01] LABS: BASOPHILS 0.2 % (0-2); EOSINOPHILS 4.2 % (0-7); HEMATOCRIT 35.8 % (42.0-54.0); HEMOGLOBIN 11.8 g/dL (13.5-17.5); IMMATURE GRANULOCYTES 1.2 % (0-5); LYMPHOCYTES 9.1 % (15-50); MCH 32.9 pg (26.0-34.0); MCV 99.7 fL (80.0-100.0); MEAN PLATELET VOLUME 11.8 fL (7.4-10.4); MONOCYTES 7.5 % (2-11); NEUTROPHILS 77.8 % (40-80); PLATELET COUNT 398 10x3/uL (130-400); RBC 3.59 10x6/uL (4.20-6.10); RDW 16.8 % (11.5-14.5); WBC 12.7 10x3/uL (4.8-10.8)
[2019-06-03 04:14] LABS: ALBUMIN 2.1 g/dL (3.4-5.0); ANION GAP 13.9 mmol/L (8-16); BILIRUBIN - TOTAL 0.34 mg/dL (0.2-1.3); CARBON DIOXIDE 22.1 mmol/L (21.0-32.0); PROTEIN - SERUM 6.4 g/dL (6.4-8.2)
[2019-06-03 10:26] VITALS: BP 106/50
[2019-06-03 11:59] VITALS: BP 121/49
--- NOTE | 2019-06-03 14:45 | NUR ---
Nutrition follow-up: Pt has been NPO for surgery Diet: ADA consistent CHO PO intake remains ~25% of meals; pt receiving whiskey PRN Labs reviewed Wt: 369# Wound VAC to abdomen. Pt would benefit from Matt nutritional supplement, 1 pkt BID to aid with wound healing. RDN following.
--- NOTE | 2019-06-03 16:19 | NUR ---
PT RESTING IN BED. NO SIGNS OF DISTRESS. IV TO RIGHT FORARM PATENT NO REDNESS OR TENDERNESS. HAS WOUND VAC TO ABDOMEN. HAS ALL FALL PRECAUTIONS IN PLACE. ON 3L NC. DENIES ANY FURTHER NEED AT THIS TIME. CALL LIGHT IN REACH. BED LOW POSITION. FAMILY AT BEDSIDE.
[2019-06-03 16:32] VITALS: BP 124/59
[2019-06-03 20:00] VITALS: BP 133/55
[2019-06-04] VITALS: BP 107/52
--- NOTE | 2019-06-04 03:53 | NUR ---
PT RESTING IN BED. EYES CLOSED. NO SIGNS OF DISTRESS. BREATHING EVEN AND UNLABORED. 3LO2 NASAL CANNULA. BOWEL SOUNDS ACTIVE. WOUND VAC LT SIDE OF ABD. DRESSING CLEAN DRY AND INTACT. LT WRIST IV DRESSING CLEAN DRY AND INTACT. NO SIGNS OF INFECTION. SCDS ON. BED LOWERED AND LOCKED. CALL LIGHT IN REACH. ENRIQUE ALARM ON. WILL CONTINUE PLAN OF CARE.
[2019-06-04 04:00] VITALS: BP 121/59
--- NOTE | 2019-06-04 04:39 | NUR ---
I have reviewed this patient and I concur with the Shift Assessment completed by the Licensed Practical Nurse today this shift.
[2019-06-04 06:57] LABS: BASOPHILS 0.2 % (0-2); EOSINOPHILS 3.9 % (0-7); HEMATOCRIT 36.1 % (42.0-54.0); HEMOGLOBIN 11.9 g/dL (13.5-17.5); IMMATURE GRANULOCYTES 0.8 % (0-5); MEAN PLATELET VOLUME 12.1 fL (7.4-10.4); MONOCYTES 7.4 % (2-11); NEUTROPHILS 77.7 % (40-80); PLATELET COUNT 456 10x3/uL (130-400); RBC 3.61 10x6/uL (4.20-6.10); RDW 16.9 % (11.5-14.5); WBC 11.5 10x3/uL (4.8-10.8)
[2019-06-04 07:21] LABS: ALBUMIN 2.2 g/dL (3.4-5.0); BILIRUBIN - TOTAL 0.39 mg/dL (0.2-1.3); CALCIUM 8.1 mg/dL (8.5-10.1); CARBON DIOXIDE 18.1 mmol/L (21.0-32.0); CREATININE - SERUM 1.8 mg/dL (0.6-1.3); POTASSIUM - SERUM 4.1 mmol/L (3.5-5.1); PROTEIN - SERUM 6.6 g/dL (6.4-8.2)
[2019-06-04 08:58] VITALS: BP 108/48
[2019-06-04 12:32] VITALS: BP 99/61
[2019-06-04 17:09] VITALS: BP 100/64
--- NOTE | 2019-06-04 18:45 | NUR ---
I have reviewed this patient and I concur with the Shift Assessment completed by the Licensed Practical Nurse today this shift.
--- NOTE | 2019-06-04 19:15 | NUR ---
RECEIVED CARE FROM DAY NURSE. LYING IN BED IWTH FAMILY AT BEDSIDE. REPORTS NO NEEDS AT THIS TIME. CALL LIGHT AT SIDE. IV INFUSING TO PATENT LEFT WRIST.
[2019-06-04 20:00] VITALS: BP 90/47
[2019-06-05] VITALS: BP 109/70; BP 112/60
--- NOTE | 2019-06-05 01:26 | NUR ---
I have reviewed this patient and I concur with the Shift Assessment completed by the Licensed Practical Nurse today this shift.
[2019-06-05 04:00] VITALS: BP 112/46
[2019-06-05 07:05] LABS: BASOPHILS 0.4 % (0-2); EOSINOPHILS 3.3 % (0-7); HEMATOCRIT 36.3 % (42.0-54.0); HEMOGLOBIN 11.8 g/dL (13.5-17.5); IMMATURE GRANULOCYTES 0.8 % (0-5); LYMPHOCYTES 11.3 % (15-50); MCH 32.2 pg (26.0-34.0); MCHC 32.5 g/dL (31.0-37.0); MCV 99.2 fL (80.0-100.0); MONOCYTES 7.9 % (2-11); NEUTROPHILS 76.3 % (40-80); PLATELET COUNT 451 10x3/uL (130-400); RBC 3.66 10x6/uL (4.20-6.10); RDW 16.8 % (11.5-14.5); WBC 11.2 10x3/uL (4.8-10.8)
[2019-06-05 07:18] LABS: ALBUMIN 2.3 g/dL (3.4-5.0); BILIRUBIN - TOTAL 0.34 mg/dL (0.2-1.3); CALCIUM 8.1 mg/dL (8.5-10.1); CREATININE - SERUM 1.8 mg/dL (0.6-1.3); PROTEIN - SERUM 6.7 g/dL (6.4-8.2)
[2019-06-05 09:15] VITALS: BP 129/59
--- NOTE | 2019-06-05 10:38 | NUR ---
PT LYING IN BED ASLEEP, WOKE PATIENT FOR BREAKFAST AND MEDS AND HE WENT RIGHT BACK TO SLEEP, PT HAS O2 OFF STATING AT 97 HR AT 54, ENCOURAGED PT TO SIT UP AND EAT, NO OTHER NEEDS VOICED, CONTINUE WITH PLAN OF CARE
--- NOTE | 2019-06-05 12:26 | MORECARE ---
CASE MANAGEMENT DISCHARGE SUMMARY PATIENT: REED COX UNIT: [id number] ADM DATE: 05/20/19 AGE: 63 : 55 SEX: M ROOM/BED: D.2218 AUTHOR: LOISDOC PHYSICIAN: REFERRING PHYSICIAN: GRAY HALL MD DATE OF SERVICE: 06/05/19 Discharge Plan Patient Name: REED COX Facility: [facility]:[place] : 1955 Planned Disposition: Home or Self Care Anticipated Discharge Date: Discharge Date: Expected LOS: Initial Reviewer: [id number] Initial Review Date: 05/20/2019 Generated: 06/05/19 1:26 pm Comments DCP- Discharge Planning Updated by [id number]: Maci Rodriguez on 06/05/19 11:[address] Patient Name: REED COX Admission Status: Elective Accout number: [id number] Admission Date: 05-20-2019 : 1955 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 FITO SIGNED FOR [facility]. CM WILL FAX ORDERS AT TIME OF DC. Advanced Manufacturing Consultant: Maci Rodriguez DCP- Discharge Planning Updated by [id number]: Cony Potts on 05/23/19 1:[address] Patient Name: REED COX Admission Status: Elective Accout number: [id number] Admission Date: 05-20-2019 : 1955 Admission Diagnosis: Attending: NIMESH HALL Current LOS: 3 Anticipated DC Date: Planned Disposition: Home or Self Care Primary Insurance: WELLCARE MEDICARE ADV Discharge Planning Comments: CM met with patient to complete initial dc planning assessment. CM educated patient on the CM role and verbal consent given by patient to complete assessment. Patient lives at home with his where he is independent with his care. At discharge patient plans to return home and feels this is a safe discharge. CM discussed availability of home health, rehab services, and medical equipment. He stated that he has home O2, CPAP, nebulizer, portable O2, pulse ox & blood pressure machine at home. His DME of choice is [facility]. FITO signed and placed in chart. 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 Patient denied known discharge needs at this time. CM will continue to follow and will assist as needed with dc plans/needs. Advanced Manufacturing Consultant: Cony Potts DCPIA - Discharge Planning Initial Assessment Updated by [id number]: Cony Potts on 05/23/19 2:13 pm * Is the patient Alert and Oriented? Yes * How many steps to enter\exit or inside your home? * PCP [place] * [facility] * Preadmission Environment Home with Family * ADLs Independent * Equipment CPAP Nebulizer Other Oxygen Walker * Other Equipment PULSE OX BLOOD PRESSURE MONITOR * List name and contact numbers for known caregivers / representatives who currently or will assist patient after discharge: YAMILEX () [phone] * Verbal permission to speak to the caregivers and representatives has been obtained from the patient. N/A * Community resources currently utilized None * Additional services required to return to the preadmission environment? No * Can the patient safely return to the preadmission environment? Yes * Has this patient been hospitalized within the prior 30 days at any hospital? No Coverage Notice Reviewer: [id number] - Cony Potts Notice Issued Date-Time: 05/23/2019 14:10 Notice Type: Patient Choice Letter Notice Delivered To: Patient Relationship to Patient: Access Database Developer Name: Delivery Method: - Nathaly Days: Prior Verbal Notification: Recipient Understood Notice: Yes Recipient Signature: Yes Med Rec Note Co-signed by Attending: Coverage Notice Comment: Reviewer: [id number] - Maci Rodriguez Notice Issued Date-Time: 06/05/2019 12:15 Notice Type: Patient Choice Letter Notice Delivered To: Patient Relationship to Patient: Self Access Database Developer Name: Delivery Method: HAND - Hand Delivered Nathaly Days: Prior Verbal Notification: Recipient Understood Notice: Yes Recipient Signature: Yes Med Rec Note Co-signed by Attending: Coverage Notice Comment: Last DP export: 05/23/19 1:19 p Patient Name: REED COX Page [id number] at 1226 All edits/amendments must be made on the electronic document DICTATION DATE: 06/05/19 1225 AIRCONDITIONING PLANT OPERATOR: JAKE 06/05/19 1225 RPT#: [id number] DC DATE: STATUS: ADM IN [facility] [address] [place] [address] END OF REPORT
[2019-06-05 13:10] VITALS: BP 107/50
--- NOTE | 2019-06-05 15:24 | NUR ---
PT LYING IN BED, HAD GOTTEN UP WITH PT TODAY, NO NEEDS VOICED, STATED HE IS TO HAVE A SWALLOW STUDY DUE TO COUGHING WHEN EATS, ENCOURAGED PT TO SIT UP MORE WHEN EATING OR DRINKING SO THAT HE DOESNT COUGH. CONTINUE WITH PLAN OF CARE
[2019-06-05 16:22] VITALS: BP 124/58
--- NOTE | 2019-06-05 18:00 | NUR ---
I have reviewed this patient and I concur with the Shift Assessment completed by the Licensed Practical Nurse today this shift.
--- NOTE | 2019-06-05 19:15 | NUR ---
RECEIVED CARE FROM DAY NURSE. LYING IN BED WATCHING TV. REPORTS NO NEEDS AT THIS TIME. CALL LIGHT AT SIDE. IV INFUSING PER ORDER. WOUND VAC COMPRESSED.
[2019-06-05 20:00] VITALS: BP 113/62
--- NOTE | 2019-06-05 20:15 | NUR ---
IV IN LEFT HAND ALARMING OCCLUDED AND WILL NOT FLUSH. DC'D WITH TIP INTACT. RESITED TO RIGHT FA. 22 GUAGE X2 STICKS WITH GOOD BLOOD RETURN NOTED.
[2019-06-06] VITALS: BP 101/59
--- NOTE | 2019-06-06 01:28 | NUR ---
I have reviewed this patient and I concur with the Shift Assessment completed by the Licensed Practical Nurse today this shift.
[2019-06-06 04:00] VITALS: BP 96/60
[2019-06-06 05:49] LABS: BASOPHILS 0.5 % (0-2); EOSINOPHILS 3.9 % (0-7); HEMATOCRIT 34.8 % (42.0-54.0); HEMOGLOBIN 11.4 g/dL (13.5-17.5); IMMATURE GRANULOCYTES 0.9 % (0-5); LYMPHOCYTES 11.3 % (15-50); MCH 32.5 pg (26.0-34.0); MCHC 32.8 g/dL (31.0-37.0); MCV 99.1 fL (80.0-100.0); MEAN PLATELET VOLUME 12.1 fL (7.4-10.4); MONOCYTES 9.7 % (2-11); NEUTROPHILS 73.7 % (40-80); PLATELET COUNT 455 10x3/uL (130-400); RBC 3.51 10x6/uL (4.20-6.10); RDW 16.9 % (11.5-14.5); WBC 10.7 10x3/uL (4.8-10.8)
[2019-06-06 06:08] LABS: ALBUMIN 2.3 g/dL (3.4-5.0); ANION GAP 16.4 mmol/L (8-16); BILIRUBIN - TOTAL 0.42 mg/dL (0.2-1.3); CALCIUM 8.1 mg/dL (8.5-10.1); CARBON DIOXIDE 17.7 mmol/L (21.0-32.0); CREATININE - SERUM 1.7 mg/dL (0.6-1.3); POTASSIUM - SERUM 4.1 mmol/L (3.5-5.1); PROTEIN - SERUM 6.3 g/dL (6.4-8.2)
--- NOTE | 2019-06-06 08:00 | NUR ---
ASSESSMENT PER FLOW SHEET.PT IS WITHOUT DISTRESS.CALL LIGHT IN REACH
--- NOTE | 2019-06-06 08:06 | MORECARE ---
CASE MANAGEMENT DISCHARGE SUMMARY PATIENT: REED COX UNIT: [id number] ADM DATE: 05/20/19 AGE: 63 : 55 SEX: M ROOM/BED: D.2218 AUTHOR: LOISDOC PHYSICIAN: REFERRING PHYSICIAN: GRAY HALL MD DATE OF SERVICE: 06/06/19 Discharge Plan Patient Name: REED COX Facility: [facility]:[place] : 1955 Planned Disposition: Home or Self Care Anticipated Discharge Date: Discharge Date: Expected LOS: Initial Reviewer: [email or web address] Initial Review Date: 05/20/2019 Generated: 06/06/19 9:06 am Comments DCP- Discharge Planning Updated by [email or web address]: Maci Rodriguez on 06/05/19 11:[address] Patient Name: REED COX Admission Status: Elective Accout number: [id number] Admission Date: 05-20-2019 : 1955 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 [facility]O SIGNED FOR [facility]. CM WILL FAX ORDERS AT TIME OF DC. Ice Skater: Maci Rodriguez DCP- Discharge Planning Updated by [id number]: Cony Potts on 05/23/19 1:[address] Patient Name: REED COX Admission Status: Elective Accout number: [id number] Admission Date: 05-20-2019 : 1955 Admission Diagnosis: Attending: NIMESH HALL Current LOS: 3 Anticipated DC Date: Planned Disposition: Home or Self Care Primary Insurance: WELLCARE MEDICARE ADV Discharge Planning Comments: CM met with patient to complete initial dc planning assessment. CM educated patient on the CM role and verbal consent given by patient to complete assessment. Patient lives at home with his where he is independent with his care. At discharge patient plans to return home and feels this is a safe discharge. CM discussed availability of home health, rehab services, and medical equipment. He stated that he has home O2, CPAP, nebulizer, portable O2, pulse ox & blood pressure machine at home. His DME of choice is [facility]. FITO signed and placed in chart. 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 Patient denied known discharge needs at this time. CM will continue to follow and will assist as needed with dc plans/needs. Ice Skater: Cony Potts DCPIA - Discharge Planning Initial Assessment Updated by [id number]: Cony Potts on 05/23/19 2:13 pm * Is the patient Alert and Oriented? Yes * How many steps to enter\exit or inside your home? * PCP [facility] * [facility] * Preadmission Environment Home with Family * ADLs Independent * Equipment CPAP Nebulizer Other Oxygen Walker * Other Equipment PULSE OX BLOOD PRESSURE MONITOR * List name and contact numbers for known caregivers / representatives who currently or will assist patient after discharge: YAMILEX () [phone] * Verbal permission to speak to the caregivers and representatives has been obtained from the patient. N/A * Community resources currently utilized None * Additional services required to return to the preadmission environment? No * Can the patient safely return to the preadmission environment? Yes * Has this patient been hospitalized within the prior 30 days at any hospital? No External Providers External Provider: [facility] [employer] Next Contact Date: Service Request Date: Service Type: Resolution: Reviewer: Comments: Coverage Notice Reviewer: [id number] - Cony Potts Notice Issued Date-Time: 05/23/2019 14:10 Notice Type: Patient Choice Letter Notice Delivered To: Patient Relationship to Patient: Hay Rake Operator Name: Delivery Method: - Nathaly Days: Prior Verbal Notification: Recipient Understood Notice: Yes Recipient Signature: Yes Med Rec Note Co-signed by Attending: Coverage Notice Comment: Reviewer: [email or web address] Sabiha Rodriguez Notice Issued Date-Time: 06/05/2019 12:15 Notice Type: Patient Choice Letter Notice Delivered To: Patient Relationship to Patient: Self Hay Rake Operator Name: Delivery Method: HAND - Hand Delivered Nathaly Days: Prior Verbal Notification: Recipient Understood Notice: Yes Recipient Signature: Yes Med Rec Note Co-signed by Attending: Coverage Notice Comment: Last DP export: 06/05/19 11:26 a Patient Name: REED COX Page [phone] at 0806 All edits/amendments must be made on the electronic document DICTATION DATE: 06/06/19804 TRANSPORT TRUCK DRIVER: JAKE 06/06/19804 RPT#: [id number] DC DATE: STATUS: ADM IN [facility] [address] [place] [address] END OF REPORT
--- NOTE | 2019-06-06 08:13 | MORECARE ---
CASE MANAGEMENT DISCHARGE SUMMARY PATIENT: REED COX UNIT: [id number] ADM DATE: 05/20/19 AGE: 63 : 55 SEX: M ROOM/BED: D.2218 AUTHOR: LOISDOC PHYSICIAN: REFERRING PHYSICIAN: GRAY HALL MD DATE OF SERVICE: 06/06/19 Discharge Plan Patient Name: REED COX Facility: [facility]:[place] : 1955 Planned Disposition: Home or Self Care Anticipated Discharge Date: Discharge Date: Expected LOS: Initial Reviewer: [email or web address] Initial Review Date: 05/20/2019 Generated: 06/06/19 9:13 am Comments DCP- Discharge Planning Updated by [id number]: Maci Rodriguez on 06/05/19 11:[address] Patient Name: REED COX Admission Status: Elective Accout number: [id number] Admission Date: 05-20-2019 : 1955 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 FITO SIGNED FOR [facility]. CM WILL FAX ORDERS AT TIME OF DC. Tipple Repairer: Maci Rodriguez DCP- Discharge Planning Updated by [id number]: Cony Potts on 05/23/19 1:[address] Patient Name: REED COX Admission Status: Elective Accout number: [id number] Admission Date: 05-20-2019 : 1955 Admission Diagnosis: Attending: NIMESH HALL Current LOS: 3 Anticipated DC Date: Planned Disposition: Home or Self Care Primary Insurance: WELLCARE MEDICARE ADV Discharge Planning Comments: CM met with patient to complete initial dc planning assessment. CM educated patient on the CM role and verbal consent given by patient to complete assessment. Patient lives at home with his where he is independent with his care. At discharge patient plans to return home and feels this is a safe discharge. CM discussed availability of home health, rehab services, and medical equipment. He stated that he has home O2, CPAP, nebulizer, portable O2, pulse ox & blood pressure machine at home. His DME of choice is [facility]. FITO signed and placed in chart. 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 Patient denied known discharge needs at this time. CM will continue to follow and will assist as needed with dc plans/needs. Tipple Repairer: Cony Potts DCPIA - Discharge Planning Initial Assessment Updated by [email or web address]: Cony Potts on 05/23/19 2:13 pm * Is the patient Alert and Oriented? Yes * How many steps to enter\exit or inside your home? * PCP [facility] * [facility] * Preadmission Environment Home with Family * ADLs Independent * Equipment CPAP Nebulizer Other Oxygen Walker * Other Equipment PULSE OX BLOOD PRESSURE MONITOR * List name and contact numbers for known caregivers / representatives who currently or will assist patient after discharge: YAMILEX () [phone] * Verbal permission to speak to the caregivers and representatives has been obtained from the patient. N/A * Community resources currently utilized None * Additional services required to return to the preadmission environment? No * Can the patient safely return to the preadmission environment? Yes * Has this patient been hospitalized within the prior 30 days at any hospital? No External Providers [facility] [place] Next Contact Date: Service Request Date: Service Type: Resolution: Reviewer: Comments: Coverage Notice Reviewer: [id number] - Cony Potts Notice Issued Date-Time: 05/23/2019 14:10 Notice Type: Patient Choice Letter Notice Delivered To: Patient Relationship to Patient: Applique Cutter Name: Delivery Method: - Nathaly Days: Prior Verbal Notification: Recipient Understood Notice: Yes Recipient Signature: Yes Med Rec Note Co-signed by Attending: Coverage Notice Comment: Reviewer: [email or web address] Sabiha Rodriguez Notice Issued Date-Time: 06/05/2019 12:15 Notice Type: Patient Choice Letter Notice Delivered To: Patient Relationship to Patient: Self Applique Cutter Name: Delivery Method: HAND - Hand Delivered Nathaly Days: Prior Verbal Notification: Recipient Understood Notice: Yes Recipient Signature: Yes Med Rec Note Co-signed by Attending: Coverage Notice Comment: Last DP export: 06/06/19 7:06 a Patient Name: REED COX Page 18254 at 0813 All edits/amendments must be made on the electronic document DICTATION DATE: 06/06/19811 HAZARDOUS SUBSTANCES SCIENTIST: JAKE 06/06/19811 RPT#: [id number] DC DATE: STATUS: ADM IN [facility] [address] [place] [address] END OF REPORT
[2019-06-06 08:46] VITALS: BP 125/58
[2019-06-06 12:08] VITALS: BP 119/68
--- NOTE | 2019-06-06 12:23 | MORECARE ---
CASE MANAGEMENT DISCHARGE SUMMARY PATIENT: REED COX UNIT: [id number] ADM DATE: 05/20/19 AGE: 63 : 55 SEX: M ROOM/BED: D.2218 AUTHOR: LOISDOC PHYSICIAN: REFERRING PHYSICIAN: GRAY HALL MD DATE OF SERVICE: 06/06/19 Discharge Plan Patient Name: REED COX Facility: [facility]:[place] : 1955 Planned Disposition: Home or Self Care Anticipated Discharge Date: Discharge Date: Expected LOS: Initial Reviewer: [email or web address] Initial Review Date: 05/20/2019 Generated: 06/06/19 1:22 pm Comments DCP- Discharge Planning Updated by [email or web address]: Maci Rodriguez on 06/05/19 11:[address] Patient Name: REED COX Admission Status: Elective Accout number: [id number] Admission Date: 05-20-2019 : 1955 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 [facility]O SIGNED FOR [facility]. CM WILL FAX ORDERS AT TIME OF DC. Reference Librarian: Maci Rodriguez DCP- Discharge Planning Updated by [id number]: Cony Potts on 05/23/19 1:[address] Patient Name: REED COX Admission Status: Elective Accout number: [id number] Admission Date: 05-20-2019 : 1955 Admission Diagnosis: Attending: NIMESH HALL Current LOS: 3 Anticipated DC Date: Planned Disposition: Home or Self Care Primary Insurance: WELLCARE MEDICARE ADV Discharge Planning Comments: CM met with patient to complete initial dc planning assessment. CM educated patient on the CM role and verbal consent given by patient to complete assessment. Patient lives at home with his where he is independent with his care. At discharge patient plans to return home and feels this is a safe discharge. CM discussed availability of home health, rehab services, and medical equipment. He stated that he has home O2, CPAP, nebulizer, portable O2, pulse ox & blood pressure machine at home. His DME of choice is [facility]. FITO signed and placed in chart. 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 Patient denied known discharge needs at this time. CM will continue to follow and will assist as needed with dc plans/needs. Reference Librarian: Cony Potts DCPIA - Discharge Planning Initial Assessment Updated by [id number]: Cony Potts on 05/23/19 2:13 pm * Is the patient Alert and Oriented? Yes * How many steps to enter\exit or inside your home? * PCP [facility] * Pharm[facility] * Preadmission Environment Home with Family * ADLs Independent * Equipment CPAP Nebulizer Other Oxygen Walker * Other Equipment PULSE OX BLOOD PRESSURE MONITOR * List name and contact numbers for known caregivers / representatives who currently or will assist patient after discharge: YAMILEX () [phone] * Verbal permission to speak to the caregivers and representatives has been obtained from the patient. N/A * Community resources currently utilized None * Additional services required to return to the preadmission environment? No * Can the patient safely return to the preadmission environment? Yes * Has this patient been hospitalized within the prior 30 days at any hospital? No Coverage Notice Reviewer: [id number] - Cony Potts Notice Issued Date-Time: 05/23/2019 14:10 Notice Type: Patient Choice Letter Notice Delivered To: Patient Relationship to Patient: Pipeline Systems Operator Name: Delivery Method: - Nathaly Days: Prior Verbal Notification: Recipient Understood Notice: Yes Recipient Signature: Yes Med Rec Note Co-signed by Attending: Coverage Notice Comment: Reviewer: [id number] - Maci Rodriguez Notice Issued Date-Time: 06/05/2019 12:15 Notice Type: Patient Choice Letter Notice Delivered To: Patient Relationship to Patient: Self Pipeline Systems Operator Name: Delivery Method: HAND - Hand Delivered Nathaly Days: Prior Verbal Notification: Recipient Understood Notice: Yes Recipient Signature: Yes Med Rec Note Co-signed by Attending: Coverage Notice Comment: Last DP export: 06/06/19 7:13 a Patient Name: REED COX Page [id number] at 1223 All edits/amendments must be made on the electronic document DICTATION DATE: 06/06/19 1222 CUSHION MAKER: JAKE 06/06/19 1222 RPT#: [id number] DC DATE: STATUS: ADM IN [facility] [address] [place] [address] END OF REPORT
--- NOTE | 2019-06-06 14:09 | NUR ---
NUTRITION F/U SPOKE WITH SPEECH THERAPY, PT WITH SWALLOWING DIFFICULTY. MAY REQUIRE NG OR PEG TUBE FOR NUTRITION SUPPORT. IF NEEDED, RECOMMEND GLUCERNA 1.0 WITH CURRENT GOAL RATE 85 CC/HR. RD FOLLOWING
--- NOTE | 2019-06-06 15:13 | NUR ---
TO ASSIST WITH BATHING.MONITOR FOR NEEDS
--- NOTE | 2019-06-06 18:19 | NUR ---
18 ALBANIAN NGT INSERTED WITH LIGHT GREEN BILE COLORED LIQUID IN TUBE. KUB ORDERED TO CONFIRM PROPER PLACEMENT.
--- NOTE | 2019-06-06 20:00 | NUR ---
ASSESSMENT PER FLOWSHEET. NGT TO RT NARE CLAMPED. ABD. WOUND WITH WOUND VAC AND RETENTION SUTURES NOTED ON EITHER SIDE OF WOUND.IV TO RT HAND IN PLACE WITH MVI AT 125CC'S/HR. TELM. SHOWS SB WITH HR 57 BBB AND 1ST DEGREE AV BLOCK. O2 AT 3.5 L/M NH NC. ENRIQUE MAT IN USE AND ACTIVATED. SR UP X3. CALL LIGHT WITHIN REACH.
--- NOTE | 2019-06-06 20:45 | NUR ---
PATIENT ACTIVATES ENRIQUE MAT CLIMBS OUT OF BED AND GOES TO BR. ASSISTED BACK TO BED SR UP X3 CALL LIGHT WITHIN REACH REACTIVATED ENRIQUE MAT. IV CONTINUES TO BEEP. CHECKED FOR PLACEMENT. NO BLOOD RETURN NOTED SWELLING NOTED AT SITE REMOVED IV AND RESITED TO RT FOREARM WITH #20 G ANGIOCATH X1 ATTEMPT. RESUMED IV FLUIDS.
--- NOTE | 2019-06-06 21:30 | NUR ---
MEDS GIVEN TO NGT AND FLUSHED WITH WATER.
[2019-06-06 21:44] VITALS: BP 120/60
--- NOTE | 2019-06-07 | NUR ---
CPAP ON AT THIS TIME. PATIENT SLEEPING.
[2019-06-07 01:11] VITALS: BP 118/62
--- NOTE | 2019-06-07 03:00 | NUR ---
EYES CLOSED RESPIRATIONS WITH EASE AND UNLABORED.
--- NOTE | 2019-06-07 03:48 | NUR ---
PT AWAKE AND PULLS OUT NGT.
[2019-06-07 04:34] LABS: BASOPHILS 0.4 % (0-2); EOSINOPHILS 4.1 % (0-7); HEMATOCRIT 33.6 % (42.0-54.0); HEMOGLOBIN 10.9 g/dL (13.5-17.5); IMMATURE GRANULOCYTES 0.6 % (0-5); LYMPHOCYTES 12.1 % (15-50); MCH 32.2 pg (26.0-34.0); MCHC 32.4 g/dL (31.0-37.0); MCV 99.1 fL (80.0-100.0); MEAN PLATELET VOLUME 12.1 fL (7.4-10.4); MONOCYTES 10.4 % (2-11); NEUTROPHILS 72.4 % (40-80); PLATELET COUNT 431 10x3/uL (130-400); RBC 3.39 10x6/uL (4.20-6.10)
[2019-06-07 04:50] LABS: ALBUMIN 2.1 g/dL (3.4-5.0); BILIRUBIN - TOTAL 0.34 mg/dL (0.2-1.3); CALCIUM 7.8 mg/dL (8.5-10.1); CREATININE - SERUM 1.6 mg/dL (0.6-1.3); POTASSIUM - SERUM 4.2 mmol/L (3.5-5.1)
[2019-06-07 05:03] LABS: ANION GAP 17.3 mmol/L (8-16); CARBON DIOXIDE 17.9 mmol/L (21.0-32.0)
[2019-06-07 06:23] VITALS: BP 106/51
--- NOTE | 2019-06-07 07:10 | NUR ---
AWAKENS INT. PT IS WITHOUT DISTRESS.ENRIQUE MAT ON AND WORKING.DOOR OPEN
[2019-06-07 08:36] VITALS: BP 116/56
--- NOTE | 2019-06-07 09:00 | NUR ---
ASSESSMENT PER FLOW SHEET. PT IS WITHOUT NEEDS.MONITOR FOR CHANGE
--- NOTE | 2019-06-07 14:42 | OP ---
PATIENT NAME: REED COX MEDICAL RECORD: [id number] :55 LOCATION:D.MS [address] ADMISSION DATE:05/20/19 SURGEON: EDE NORMAN MD DATE OF OPERATION: 06/03/2019 PREOPERATIVE DIAGNOSIS: Open left flank abdominal wound. POSTOPERATIVE DIAGNOSIS: Open left flank abdominal wound. PROCEDURES: 1. Preparation of wound bed with application of 10.0 cm x 12.5 cm nanofiber wound matrix. 2. Placement of wound VAC. 3. Placement of retention sutures. SURGEON: Ede Norman MD SPRAYER AUTOMATIC SPRAY MACHINE: Dr. Arce COMPLICATIONS: None. ANESTHESIA: General endotracheal. The risks, possible complications, and alternatives to the procedure were explained to the patient. He elects to proceed. DESCRIPTION OF PROCEDURE: The patient was conveyed to the operating room electively on 06/03/2019. General anesthesia was induced by the anesthesia staff. The patient was placed in the lateral decubitus position with the left side up. The wound VAC was removed. I was pleased that the muscular covering as well as the preperitoneal covering over the bowel had remained stable and there was no evisceration. After examining the wound and identifying a little bit of purulence anteriorly and inferiorly, we created a shelf bluntly underneath the subcutaneous adipose tissue. It is here where we applied the nanofiber matrix. It was sutured to the surrounding adipose tissue with some Monocryls. On top of this, we placed a white wound VAC sponge. On top of the white wound VAC sponge, horizontal mattress #1 nylons were placed as external retentions and these were placed over rubber bumpers. We then applied a black wound VAC sponge over this. The cellophane-type dressings were attached to the wound VAC sponge, which was bridged out on to the lateral abdomen. A usha was made in the cellophane-type dressing and a wound VAC disc was applied and attached to suction and it held a good "raisin." This indicated a good seal without a leak. I will plan for the dressing to stay in place for 7 days to allow the wound VAC to push the nanofiber matrix down on to the underlying granulation tissue and muscle. TRANSINT:[id number] Voice Confirmation ID: [id number] DOCUMENT ID: [id number] OPERATIVE REPORT [id number] REED COX EDE NORMAN MD at 1442 CC: [id number] DICTATION DATE: 06/03/19 1124 REMOTE PILOT OPERATOR: 06/03/19 1251 ADM IN [facility] [address] [place] [id number]
--- NOTE | 2019-06-07 17:22 | NUR ---
DECLINES DINNER TRAY ORDERED
[2019-06-07 17:36] VITALS: BP 126/57
[2019-06-07 20:00] VITALS: BP 109/56
--- NOTE | 2019-06-07 20:00 | NUR ---
ASSESSMENT PER FLOWSHEET. WOUND VAC TO ABD. WOUND WITH RETENTION STITCHES IN PLACE DRSG C/D/I. O2 ON 4L/M PER NC.HOB UP 30 DEGREES. IV TO RT FOREARM OF PROCAL AT 75CC'S/HR. ENRIQUE BED ALARM MAT IN PLACE ALARMS ACTIVATED SR UP X2 CALL LIGHT WITHIN REACH.
--- NOTE | 2019-06-07 21:00 | NUR ---
MEDS GIVEN PER JAN. WITH PUDDING. TOLERATED WELL.
--- NOTE | 2019-06-07 22:00 | NUR ---
PT CLIMBS OUT OF BED TO BR ALARMS SOUNDING ASSISTED BACK TO BED AFTER PT HAS VOIDED. IV NOTED TO BE INFILTRATED IV FLUIDS STOPPED.
--- NOTE | 2019-06-07 23:53 | NUR ---
IV INFILTRATED RESITED TO RT HAND #22G ANGIOCATH RESUMED IV FLUIDS.
[2019-06-08 04:00] VITALS: BP 125/62
[2019-06-08 06:35] LABS: BASOPHILS 0.5 % (0-2); EOSINOPHILS 3.8 % (0-7); HEMATOCRIT 34.9 % (42.0-54.0); HEMOGLOBIN 11.4 g/dL (13.5-17.5); IMMATURE GRANULOCYTES 0.8 % (0-5); LYMPHOCYTES 11.9 % (15-50); MCH 32.4 pg (26.0-34.0); MCHC 32.7 g/dL (31.0-37.0); MCV 99.1 fL (80.0-100.0); MEAN PLATELET VOLUME 12.2 fL (7.4-10.4); MONOCYTES 10.7 % (2-11); NEUTROPHILS 72.3 % (40-80); PLATELET COUNT 436 10x3/uL (130-400); RBC 3.52 10x6/uL (4.20-6.10); RDW 17.1 % (11.5-14.5); WBC 9.3 10x3/uL (4.8-10.8)
[2019-06-08 06:44] LABS: ALBUMIN 2.2 g/dL (3.4-5.0); ANION GAP 14.1 mmol/L (8-16); BILIRUBIN - TOTAL 0.41 mg/dL (0.2-1.3); CALCIUM 8.1 mg/dL (8.5-10.1); CARBON DIOXIDE 20.2 mmol/L (21.0-32.0); CREATININE - SERUM 1.6 mg/dL (0.6-1.3); POTASSIUM - SERUM 4.3 mmol/L (3.5-5.1); PROTEIN - SERUM 6.1 g/dL (6.4-8.2)
--- NOTE | 2019-06-08 08:30 | NUR ---
IV IN RIGHT HAND REMOVED WITH CATH TIP INTACT DUE TO BEING CLOTTED. RESTARTED IN RIGHT HAND X 1 STICK. TOLERATED WITH SMALL AMOUNT OF PAIN. CALL LIGHT WITHIN REACH.
[2019-06-08 08:55] VITALS: BP 114/43
[2019-06-08 13:57] VITALS: BP 132/55
[2019-06-08 16:24] VITALS: BP 100/63
--- NOTE | 2019-06-08 18:40 | NUR ---
PATIENT IN BED WITH EYES CLOSED RESTING QUIETLY. IV INTACT. CALL LIGHT WITHIN REACH. BED ALARM ON.
--- NOTE | 2019-06-08 20:00 | NUR ---
ASSESSMENT PER FLOWSHEET. IV PATENT RT HAND OF PROCAL INFUSING AT 75CC'S/HR MVI AT 50CC'S/HR. SITE CLEAR. TELM. SHOWS SB WITH HR 58 BBB/FIRST DEGREE AVB. WOUND VAC WITH RETENTION STITCHES IN PLACE. ENRIQUE MAT IN USE WITH ALARMS SSET. SR UP X2 CALL LIGHT WITHIN REACH.
--- NOTE | 2019-06-08 20:30 | NUR ---
MEDS GIVEN PER JAN. O2 ON 4L/M PER NC.
[2019-06-08 21:15] VITALS: BP 104/53
--- NOTE | 2019-06-09 | NUR ---
EYES CLOSED RESPIRATIONS WITH EASE AND UNLABORED.
[2019-06-09 01:38] VITALS: BP 124/60
[2019-06-09 05:11] VITALS: BP 97/54
[2019-06-09 05:22] LABS: BASOPHILS 0.4 % (0-2); EOSINOPHILS 4.7 % (0-7); HEMATOCRIT 34.1 % (42.0-54.0); HEMOGLOBIN 11.1 g/dL (13.5-17.5); IMMATURE GRANULOCYTES 0.9 % (0-5); LYMPHOCYTES 14.2 % (15-50); MCH 32.2 pg (26.0-34.0); MCHC 32.6 g/dL (31.0-37.0); MCV 98.8 fL (80.0-100.0); MEAN PLATELET VOLUME 12.2 fL (7.4-10.4); MONOCYTES 12.1 % (2-11); NEUTROPHILS 67.7 % (40-80); PLATELET COUNT 393 10x3/uL (130-400); RBC 3.45 10x6/uL (4.20-6.10); RDW 17.3 % (11.5-14.5); WBC 8.1 10x3/uL (4.8-10.8)
[2019-06-09 05:40] LABS: ALBUMIN 2.1 g/dL (3.4-5.0); ANION GAP 15.6 mmol/L (8-16); BILIRUBIN - TOTAL 0.39 mg/dL (0.2-1.3); CALCIUM 7.9 mg/dL (8.5-10.1); CARBON DIOXIDE 18.8 mmol/L (21.0-32.0); CREATININE - SERUM 1.5 mg/dL (0.6-1.3); POTASSIUM - SERUM 4.4 mmol/L (3.5-5.1); PROTEIN - SERUM 5.8 g/dL (6.4-8.2)
[2019-06-09 08:30] VITALS: BP 114/56
[2019-06-09 13:34] VITALS: BP 114/54
--- NOTE | 2019-06-09 14:21 | MORECARE ---
CASE MANAGEMENT DISCHARGE SUMMARY PATIENT: REED COX UNIT: [id number] ADM DATE: 05/20/19 AGE: 63 : 55 SEX: M ROOM/BED: D.2218 AUTHOR: SIOBHAN ABREU PHYSICIAN: REFERRING PHYSICIAN: GRAY HALL MD DATE OF SERVICE: 06/09/19 Discharge Plan Patient Name: REED COX Facility: [facility]:[place] : 1955 Planned Disposition: Home or Self Care Anticipated Discharge Date: Discharge Date: Expected LOS: Initial Reviewer: [id number] Initial Review Date: 05/20/2019 Generated: 06/09/19 3:21 pm Comments DCP- Discharge Planning Updated by [id number]: Cony Potts on 06/09/19 1:[address] [facility] WOUND VAC HAS BEEN APPROVEDE AND FAXED TO [facility], REJI IS ALSO AWARE DCP- Discharge Planning Updated by [email or web address]: Maci Rodriguez on 06/05/19 11:[address] Patient Name: REED COX Admission Status: Elective Accout number: [id number] Admission Date: 05-20-2019 : 1955 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 FITO SIGNED FOR [facility]. CM WILL FAX ORDERS AT TIME OF DC. Pharmaceutical Operator: Maci Rodriguez DCP- Discharge Planning Updated by [id number]: Cony Potts on 05/23/19 1:[address] Patient Name: REED COX Admission Status: Elective Accout number: [id number] Admission Date: 05-20-2019 : 1955 Admission Diagnosis: Attending: NIMESH HALL Current LOS: 3 Anticipated DC Date: Planned Disposition: Home or Self Care Primary Insurance: WELLCARE MEDICARE ADV Discharge Planning Comments: CM met with patient to complete initial dc planning assessment. CM educated patient on the CM role and verbal consent given by patient to complete assessment. Patient lives at home with his where he is independent with his care. At discharge patient plans to return home and feels this is a safe discharge. CM discussed availability of home health, rehab services, and medical equipment. He stated that he has home O2, CPAP, nebulizer, portable O2, pulse ox & blood pressure machine at home. His DME of choice is [facility]. FITO signed and placed in chart. 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 Patient denied known discharge needs at this time. CM will continue to follow and will assist as needed with dc plans/needs. Pharmaceutical Operator: Cony Potts DCPIA - Discharge Planning Initial Assessment Updated by [id number]: Cony Potts on 05/23/19 2:13 pm * Is the patient Alert and Oriented? Yes * How many steps to enter\exit or inside your home? * PCP [facility] * [facility] * Preadmission Environment Home with Family * ADLs Independent * Equipment CPAP Nebulizer Other Oxygen Walker * Other Equipment PULSE OX BLOOD PRESSURE MONITOR * List name and contact numbers for known caregivers / representatives who currently or will assist patient after discharge: YAMILEX () [phone] * Verbal permission to speak to the caregivers and representatives has been obtained from the patient. N/A * Community resources currently utilized None * Additional services required to return to the preadmission environment? No * Can the patient safely return to the preadmission environment? Yes * Has this patient been hospitalized within the prior 30 days at any hospital? No Coverage Notice Reviewer: [id number] - Cony Potts Notice Issued Date-Time: 05/23/2019 14:10 Notice Type: Patient Choice Letter Notice Delivered To: Patient Relationship to Patient: Market Risk Analyst Name: Delivery Method: - Nathaly Days: Prior Verbal Notification: Recipient Understood Notice: Yes Recipient Signature: Yes Med Rec Note Co-signed by Attending: Coverage Notice Comment: Reviewer: [id number] - Maci Rodriguez Notice Issued Date-Time: 06/05/2019 12:15 Notice Type: Patient Choice Letter Notice Delivered To: Patient Relationship to Patient: Self Market Risk Analyst Name: Delivery Method: HAND - Hand Delivered Nathaly Days: Prior Verbal Notification: Recipient Understood Notice: Yes Recipient Signature: Yes Med Rec Note Co-signed by Attending: Coverage Notice Comment: Last DP export: 06/06/19 11:23 a Patient Name: REED COX Page 27114 at 1421 All edits/amendments must be made on the electronic document DICTATION DATE: 06/09/191420 AUTO REFINISHER: JAKE 06/09/191420 RPT#: [id number] DC DATE: STATUS: ADM IN [facility] [address] [place] [address] END OF REPORT
--- NOTE | 2019-06-09 14:56 | NUR ---
Nutrition follow-up: Diet: Moist mechanical soft with thin liquids PO intake very poor ProcalAmine PPN @ 75 ml/hr Labs reviewed Wt: 368# May need to consider NGT vs PEG tube placement and tube feeding started due to better meet pts estimated energy needs due to pts poor po intake . RDN following.
--- NOTE | 2019-06-09 15:57 | NUR ---
SUCTION ON WOUND VAC CAME OFF. REAGAN KATZ ABLE TO REPLACE. PATIENT GOING TO OR TOMORROW FOR CHANGE. IV INTACT. CALL LIGHT WITHIN REACH.
[2019-06-09 17:53] VITALS: BP 112/58
--- NOTE | 2019-06-09 18:45 | NUR ---
PATIENT IN BED WITH IV INTACT. NO COMPLAINTS OR SIGNS OF DISTRES. WOUND VAC INTACT. CALL LIGHT WITHIN REACH. BED ALARM ON.
--- NOTE | 2019-06-09 20:45 | NUR ---
AWAKE,ALERT.NO COMPLAITNS VOICED. RESP EVEN AND UNALBORED. O2 @ 4L PER MC ON. NO DISTRESS NOTED. IV INFUSING TO RIGHT HAND WITHOUT REDNESS OR EDEMA NOTED. WOUND VAC INTACT TO ABD INCISION RETENTION SUTURES INTACT. CL IN REACH. FALL PRECAUTIONS IN PLACE.
[2019-06-09 21:10] VITALS: BP 86/42
[2019-06-10 00:37] VITALS: BP 102/55
--- NOTE | 2019-06-10 04:00 | NUR ---
I have reviewed this patient and I concur with the Shift Assessment completed by the Licensed Practical Nurse today this shift.
[2019-06-10 05:49] VITALS: BP 114/54
[2019-06-10 06:41] LABS: BASOPHILS 0.6 % (0-2); EOSINOPHILS 3.6 % (0-7); HEMATOCRIT 32.6 % (42.0-54.0); HEMOGLOBIN 10.9 g/dL (13.5-17.5); IMMATURE GRANULOCYTES 0.8 % (0-5); LYMPHOCYTES 12.8 % (15-50); MCH 32.7 pg (26.0-34.0); MCHC 33.4 g/dL (31.0-37.0); MCV 97.9 fL (80.0-100.0); MEAN PLATELET VOLUME 12.1 fL (7.4-10.4); MONOCYTES 14.1 % (2-11); NEUTROPHILS 68.1 % (40-80); PLATELET COUNT 352 10x3/uL (130-400); RBC 3.33 10x6/uL (4.20-6.10); RDW 17.3 % (11.5-14.5)
[2019-06-10 06:51] LABS: ALBUMIN 2.1 g/dL (3.4-5.0); ANION GAP 15.4 mmol/L (8-16); BILIRUBIN - TOTAL 0.33 mg/dL (0.2-1.3); CREATININE - SERUM 1.4 mg/dL (0.6-1.3); POTASSIUM - SERUM 4.4 mmol/L (3.5-5.1); PROTEIN - SERUM 5.7 g/dL (6.4-8.2)
[2019-06-10 08:34] VITALS: BP 113/54
[2019-06-10 09:34] LABS: APPEARANCE CLEAR (CLEAR); BILIRUBIN NEGATIVE (NEGATIVE); COLOR YELLOW (YELLOW); GLUCOSE NEGATIVE (NEGATIVE); KETONE SMALL mg/dL (NEGATIVE); NITRITE NEGATIVE (NEGATIVE); PROTEIN TRACE mg/dL (NEGATIVE); SPECIFIC GRAVITY 1.015 (1.005-1.020); UROBILINOGEN NORMAL (NORMAL); WHITE CELLS - URINE RARE /hpf (0-5)
[2019-06-10 09:35] LABS: BACTERIA MODERATE /hpf (NONE SEEN); EPITHELIAL CELLS 0-5 /hpf (0-5); MUCUS <1+ /lpf (NONE SEEN); RED CELLS - URINE 0-5 /hpf (0-5)
[2019-06-10 12:48] VITALS: BP 126/54
--- NOTE | 2019-06-10 15:45 | NUR ---
BREATHING TX DUONEB GIVEN ORDERED. PULSE OX UP TO 94% AFTER TX. PT WEARING SIMPLE MASK AT 6L NOW. NO CURRENT NEEDS.
[2019-06-10 16:17] VITALS: BP 106/60
--- NOTE | 2019-06-10 16:22 | NUR ---
PATIENT BACK TO ROOM FROM OR. VS STABLE, IV INTACT. WOUND VAC CDI AND ON AND WORKING. NO COMPLAINTS OF PAIN. FAMILY AT BEDSIDE. CALL LIGHT WITHIN REACH.
--- NOTE | 2019-06-10 16:35 | MORECARE ---
CASE MANAGEMENT DISCHARGE SUMMARY PATIENT: REED COX UNIT: [id number] ADM DATE: 05/20/19 AGE: 63 : 55 SEX: M ROOM/BED: D.2218 AUTHOR: SIOBHAN ABREU PHYSICIAN: REFERRING PHYSICIAN: GRAY HALL MD DATE OF SERVICE: 06/10/19 Discharge Plan Patient Name: REED COX Facility: [facility]:[place] : 1955 Planned Disposition: Home or Self Care Anticipated Discharge Date: Discharge Date: Expected LOS: Initial Reviewer: [id number] Initial Review Date: 05/20/2019 Generated: 06/10/19 5:35 pm Comments DCP- Discharge Planning Updated by [id number]: Apurva Jurado on 06/10/19 3:[address] NORMAN TOLD ME HE DID NOT WANT WOUND VAC CHANGED BY [facility] UNTIL AFTER HE WAS SEEN IN THE OFFICE. I CALLED [facility], SPOKE WITH ASHLEIGH AND INFORMED HER OF THIS. I ALSO FAXED AN ORDER THAT THEY WERE NOT TO CHANGE WOUND VAC UNTIL OK BY DR NORMAN. CM WILL CONTINUE TO FOLLOW AND ASSIST WITH DISCHARGE PLANNING/NEEDS. DCP- Discharge Planning Updated by [id number]: Cony Potts on 06/09/19 1:[address] [facility] WOUND VAC HAS BEEN APPROVEDE AND FAXED TO 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 FITO SIGNED FOR [facility]. CM WILL FAX ORDERS AT TIME OF DC. Visiting Nurse: Maci Rodriguez DCP- Discharge Planning Updated by [id number]: Cony Potts on 05/23/19 1:[address] Patient Name: REED COX Admission Status: Elective Accout number: [id number] Admission Date: 05-20-2019 : 1955 Admission Diagnosis: Attending: NIMESH HALL Current LOS: 3 Anticipated DC Date: Planned Disposition: Home or Self Care Primary Insurance: [employer] MED[employer]ARE ADV Discharge Planning Comments: CM met with patient to complete initial dc planning assessment. CM educated patient on the CM role and verbal consent given by patient to complete assessment. Patient lives at home with his where he is independent with his care. At discharge patient plans to return home and feels this is a safe discharge. CM discussed availability of home health, rehab services, and medical equipment. He stated that he has home O2, CPAP, nebulizer, portable O2, pulse ox & blood pressure machine at home. His DME of choice is [facility]. FITO signed and placed in chart. 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 Patient denied known discharge needs at this time. CM will continue to follow and will assist as needed with dc plans/needs. Visiting Nurse: Cony Potts DCPIA - Discharge Planning Initial Assessment Updated by [email or web address]: Cony Potts on 05/23/19 2:13 pm * Is the patient Alert and Oriented? Yes * How many steps to enter\exit or inside your home? * PCP [facility] * Pharmacy [facility] * Preadmission Environment Home with Family * ADLs Independent * Equipment CPAP Nebulizer Other Oxygen Walker * Other Equipment PULSE OX BLOOD PRESSURE MONITOR * List name and contact numbers for known caregivers / representatives who currently or will assist patient after discharge: YAMILEX () [phone] * Verbal permission to speak to the caregivers and representatives has been obtained from the patient. N/A * Community resources currently utilized None * Additional services required to return to the preadmission environment? No * Can the patient safely return to the preadmission environment? Yes * Has this patient been hospitalized within the prior 30 days at any hospital? No Coverage Notice Reviewer: [id number] - Cony Potts Notice Issued Date-Time: 05/23/2019 14:10 Notice Type: Patient Choice Letter Notice Delivered To: Patient Relationship to Patient: Faculty Support Coordinator Name: Delivery Method: - Nathaly Days: Prior Verbal Notification: Recipient Understood Notice: Yes Recipient Signature: Yes Med Rec Note Co-signed by Attending: Coverage Notice Comment: Reviewer: [id number] - Macijennie Rordiguez Notice Issued Date-Time: 06/05/2019 12:15 Notice Type: Patient Choice Letter Notice Delivered To: Patient Relationship to Patient: Self Faculty Support Coordinator Name: Delivery Method: HAND - Hand Delivered Nathaly Days: Prior Verbal Notification: Recipient Understood Notice: Yes Recipient Signature: Yes Med Rec Note Co-signed by Attending: Coverage Notice Comment: Last DP export: 06/09/19 1:21 pm Patient Name: REED COX Page [id number] at 1635 All edits/amendments must be made on the electronic document DICTATION DATE: 06/10/19 1635 HEALTH AND SAFETY INSTRUCTOR: JAKE 06/10/19 1635 RPT#: [id number] DC DATE: STATUS: ADM IN [facility] [address] [place] [address] END OF REPORT
--- NOTE | 2019-06-10 18:00 | NUR ---
patient up to br. pulled suction off of wound vac. new one placed and wound vac detects no leaks at this time. iv intact. call light withn reach. bed alarm on.
[2019-06-10 20:00] VITALS: BP 108/54
[2019-06-11] VITALS: BP 100/49
[2019-06-11 04:00] VITALS: BP 127/57
[2019-06-11 06:57] LABS: BASOPHILS 0.1 % (0-2); EOSINOPHILS 0 % (0-7); HEMATOCRIT 34.2 % (42.0-54.0); HEMOGLOBIN 11.3 g/dL (13.5-17.5); LYMPHOCYTES 6.7 % (15-50); MCH 32.6 pg (26.0-34.0); MCV 98.6 fL (80.0-100.0); MEAN PLATELET VOLUME 12.1 fL (7.4-10.4); MONOCYTES 4.9 % (2-11); NEUTROPHILS 87.3 % (40-80); PLATELET COUNT 370 10x3/uL (130-400); RBC 3.47 10x6/uL (4.20-6.10); RDW 17.4 % (11.5-14.5); WBC 9.6 10x3/uL (4.8-10.8)
[2019-06-11 07:25] LABS: ALBUMIN 2.4 g/dL (3.4-5.0); BILIRUBIN - TOTAL 0.35 mg/dL (0.2-1.3); CALCIUM 8.3 mg/dL (8.5-10.1); CARBON DIOXIDE 17.9 mmol/L (21.0-32.0); CREATININE - SERUM 1.5 mg/dL (0.6-1.3); PROTEIN - SERUM 6.4 g/dL (6.4-8.2)
[2019-06-11 07:28] LABS: ANION GAP 15.8 mmol/L (8-16); POTASSIUM - SERUM 5.7 mmol/L (3.5-5.1)
--- NOTE | 2019-06-11 07:55 | NUR ---
ALERT AND ORIENTED. LUNGS DIMINISHED BILATERALLY. O2 INCREASED TO 10L HIGH FLOW BY RT TO INCREASE O2 TO 90%. PATIENT STATES WANTED TO GO HOME AND HAS BEEN "BREATHING LIKE THIS FOR MONTHS" AND THAT HE HAS O2 AT HOME. HEART SOUNDS S1 AND S2 HEARD IN ALL [place]. TELEMETRY IN PLACE. WOULD VAC TO ABDOMINAL INCISION. SKIN OTHERWISE INTACT WITHOUT REDNESS. IV TO LEFT HAND PATENT WITHOUT REDNESS. DENIES PAIN. DENIES NEEDS. BED LOW. FALL PRECAUTIONS IN PLACE. CALL PONCE AND PERSONAL ITEMS IN REACH. WILL CONTINUE TO MONITOR.
[2019-06-11 08:45] VITALS: BP 119/61
--- NOTE | 2019-06-11 10:30 | NUR ---
RESTING IN BED. DENIES PAIN. DENIES NEEDS. WILL CONTINUE TO MONITOR.
[2019-06-11 13:28] VITALS: BP 125/71
--- NOTE | 2019-06-11 13:36 | NUR ---
O2 DECREASED TO 4L BY RT. PATIENT O2 SATURATION 94 % ON 4L. DENIES PAIN. DENIES NEEDS. WILL CONTINUE TO MONITOR.
--- NOTE | 2019-06-11 14:33 | NUR ---
PATIENT ACCIDENTALLY PULLED OUT IV. WILL ATTEMPT TO RESITE.
--- NOTE | 2019-06-11 15:12 | NUR ---
STATES DOES NOT WANT NEW IV UNTIL FINDS OUT IF GOING HOME. WANTS TO SEE DOCTOR AND DISCHARGE.
[2019-06-11] MEDS ORDERED: VIBRAMYCIN 100100 MG PO (15:29)
[2019-06-11] MEDS ORDERED: FLORAJEN3 CAPS460 MG PO (15:35)
[2019-06-11] MEDS ORDERED: COLACE100 MG PO (15:35)
--- NOTE | 2019-06-11 16:26 | NUR ---
SPOKE WITH PATTIE, DISCHARGE NURSE, ABOUT ORDER FROM DR NORMAN TO OBTAIN CONSENT FOR PROCEDURE NEXT THURSDAY. STATED CONSENTS WILL BE OBTAINED IN OUTPATIENT.
[2019-06-11] MEDS ORDERED: HYDROCODON-ACE1 EAC7 PO (16:34)
--- NOTE | 2019-06-11 17:09 | NUR ---
DISCHARGE EDUCATION PROVIDED BOTH WRITTEN AND VERBAL. PATIENT AND AT BEDSIDE VERBALIZED UNDERSTANDING. DENIES FURTHER QUESTIONS. WOUND VAC TO TAKE HOME APPLIED AND EDUCATION PROVIDED. VERBALIZED UNDERSTANDING. NO IV TO REMOVE. PATIENT DISCHARGED HOME WITH WITH ALL BELONGINGS.
--- NOTE | 2019-06-11 18:19 | MORECARE ---
CASE MANAGEMENT DISCHARGE SUMMARY PATIENT: REED COX UNIT: [id number] ADM DATE: 05/20/19 AGE: 63 : 55 SEX: M ROOM/BED: D.2218 AUTHOR: SIOBHAN ABREU PHYSICIAN: REFERRING PHYSICIAN: GRAY HALL MD DATE OF SERVICE: 06/11/19 Discharge Plan Patient Name: REED COX Facility: [facility]:[place] : 1955 Planned Disposition: Home or Self Care Anticipated Discharge Date: Discharge Date: 06/11/2019 Expected LOS: Initial Reviewer: [id number] Initial Review Date: 05/20/2019 Generated: 06/11/19 7:18 pm Comments DCP- Discharge Planning Updated by [id number]: Apurva Jurado on 06/10/19 3:[address] NORMAN TOLD ME HE DID NOT WANT WOUND VAC CHANGED BY [facility] UNTIL AFTER HE WAS SEEN IN THE OFFICE. I CALLED [facility], SPOKE WITH ASHLEIGH AND INFORMED HER OF THIS. I ALSO FAXED AN ORDER THAT THEY WERE NOT TO CHANGE WOUND VAC UNTIL OK BY DR NORMAN. CM WILL CONTINUE TO FOLLOW AND ASSIST WITH DISCHARGE PLANNING/NEEDS. 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 FITO SIGNED FOR [facility]. CM WILL FAX ORDERS AT TIME OF DC. Automatic Wheel Line Operator: Maci Rodriguez DCP- Discharge Planning Updated by [id number]: Cony Potts on 05/23/19 1:[address] Patient Name: REED COX Admission Status: Elective Accout number: [id number] Admission Date: 05-20-2019 : 1955 Admission Diagnosis: Attending: NIMESH HALL Current LOS: 3 Anticipated DC Date: Planned Disposition: Home or Self Care Primary Insurance: [employer] MED[employer]ARE ADV Discharge Planning Comments: CM met with patient to complete initial dc planning assessment. CM educated patient on the CM role and verbal consent given by patient to complete assessment. Patient lives at home with his where he is independent with his care. At discharge patient plans to return home and feels this is a safe discharge. CM discussed availability of home health, rehab services, and medical equipment. He stated that he has home O2, CPAP, nebulizer, portable O2, pulse ox & blood pressure machine at home. His DME of choice is [facility]. FITO signed and placed in chart. 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 Patient denied known discharge needs at this time. CM will continue to follow and will assist as needed with dc plans/needs. Automatic Wheel Line Operator: Cony Potts DCPIA - Discharge Planning Initial Assessment Updated by [id number]: Cony Potts on 05/23/19 2:13 pm * Is the patient Alert and Oriented? Yes * How many steps to enter\exit or inside your home? * PCP [facility] * Pharmacy [facility] * Preadmission Environment Home with Family * ADLs Independent * Equipment CPAP Nebulizer Other Oxygen Walker * Other Equipment PULSE OX BLOOD PRESSURE MONITOR * List name and contact numbers for known caregivers / representatives who currently or will assist patient after discharge: YAMILEX () [phone] * Verbal permission to speak to the caregivers and representatives has been obtained from the patient. N/A * Community resources currently utilized None * Additional services required to return to the preadmission environment? No * Can the patient safely return to the preadmission environment? Yes * Has this patient been hospitalized within the prior 30 days at any hospital? No Coverage Notice Reviewer: [id number] - Cony Potts Notice Issued Date-Time: 05/23/2019 14:10 Notice Type: Patient Choice Letter Notice Delivered To: Patient Relationship to Patient: Wheel Cleaner Name: Delivery Method: - Nathaly Days: Prior Verbal Notification: Recipient Understood Notice: Yes Recipient Signature: Yes Med Rec Note Co-signed by Attending: Coverage Notice Comment: Reviewer: [id number] - Maci Rodriguez Notice Issued Date-Time: 06/05/2019 12:15 Notice Type: Patient Choice Letter Notice Delivered To: Patient Relationship to Patient: Self Wheel Cleaner Name: Delivery Method: HAND - Hand Delivered Nathaly Days: Prior Verbal Notification: Recipient Understood Notice: Yes Recipient Signature: Yes Med Rec Note Co-signed by Attending: Coverage Notice Comment: Reviewer: [id number] Sabiha Reynolds Notice Issued Date-Time: 06/11/2019 16:03 Notice Type: IM Discharge Notice Notice Delivered To: Patient Relationship to Patient: Wheel Cleaner Name: Delivery Method: HAND - Hand Delivered Nathaly Days: Prior Verbal Notification: Recipient Understood Notice: Recipient Signature: Med Rec Note Co-signed by Attending: Coverage Notice Comment: Last DP export: 06/10/19 3:35 pm Patient Name: REED COX Page [id number] at 1819 All edits/amendments must be made on the electronic document DICTATION DATE: 06/11/191817 COPY DIRECTOR: JAKE 06/11/191817 RPT#: [id number] DC DATE:06/11/19 STATUS: DIS IN [facility] [address] [place] [address] END OF REPORT
--- NOTE | 2019-06-11 18:25 | MORECARE ---
CASE MANAGEMENT DISCHARGE SUMMARY PATIENT: REED COX UNIT: [id number] ADM DATE: 05/20/19 AGE: 63 : 55 SEX: M ROOM/BED: D.2218 AUTHOR: LOIS,DOC PHYSICIAN: REFERRING PHYSICIAN: GRAY HALL MD DATE OF SERVICE: 06/11/19 Discharge Plan Patient Name: REED COX Facility: [facility]:[place] : 1955 Planned Disposition: Home or Self Care Anticipated Discharge Date: Discharge Date: 06/11/2019 Expected LOS: Initial Reviewer: [id number] Initial Review Date: 05/20/2019 Generated: 06/11/19 7:25 pm Comments DCP- Discharge Planning Updated by [id number]: Denice Reynolds on 06/11/19 5:[address] Patient discharged home today with [employer] supply [facility] and a wound vac from [facility]. CM faxed dc order, summary, and hh order stating HH was not change to wound vac. CM spoke to [facility] with [facility] and notified her of patient's discharge. Tara stated they had the patient on their schedule for Thursday. CM read the order to her that HH was not to change the wound vac. Tara verbalized understanding and stated she would make sure the admission nurse knows to not change to wound vac. Denice Reynolds RN, [facility] DCP- Discharge Planning Updated by [email or web address]: Apurva Jurado on 06/10/19 3:[address] NORMAN TOLD ME HE DID NOT WANT WOUND VAC CHANGED BY [facility] UNTIL AFTER HE WAS SEEN IN THE OFFICE. I CALLED [employer] [facility], SPOKE WITH ASHLEIGH AND INFORMED HER OF THIS. I ALSO FAXED AN ORDER THAT THEY WERE NOT TO CHANGE WOUND VAC UNTIL OK BY DR NORMAN. CM WILL CONTINUE TO FOLLOW AND ASSIST WITH DISCHARGE PLANNING/NEEDS. 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 FITO SIGNED FOR [facility]. CM WILL FAX ORDERS AT TIME OF DC. Medical Registrar: Maci Rodriguez DCP- Discharge Planning Updated by [email or web address]: Cony Potts on 05/23/19 1:[address] Patient Name: REED COX Admission Status: Elective Accout number: [id number] Admission Date: 05-20-2019 : 1955 Admission Diagnosis: Attending: NIMESH HALL Current LOS: 3 Anticipated DC Date: Planned Disposition: Home or Self Care Primary Insurance: [employer]ARE ADV Discharge Planning Comments: CM met with patient to complete initial dc planning assessment. CM educated patient on the CM role and verbal consent given by patient to complete assessment. Patient lives at home with his where he is independent with his care. At discharge patient plans to return home and feels this is a safe discharge. CM discussed availability of home health, rehab services, and medical equipment. He stated that he has home O2, CPAP, nebulizer, portable O2, pulse ox & blood pressure machine at home. His DME of choice is [facility]. FITO signed and placed in chart. 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 Patient denied known discharge needs at this time. CM will continue to follow and will assist as needed with dc plans/needs. Medical Registrar: Cony Potts DCPIA - Discharge Planning Initial Assessment Updated by [id number]: Cony Potts on 05/23/19 2:13 pm * Is the patient Alert and Oriented? Yes * How many steps to enter\exit or inside your home? * PCP [facility] * Pharmacy [facility] * Preadmission Environment Home with Family * ADLs Independent * Equipment CPAP Nebulizer Other Oxygen Walker * Other Equipment PULSE OX BLOOD PRESSURE MONITOR * List name and contact numbers for known caregivers / representatives who currently or will assist patient after discharge: YAMILEX () [phone] * Verbal permission to speak to the caregivers and representatives has been obtained from the patient. N/A * Community resources currently utilized None * Additional services required to return to the preadmission environment? No * Can the patient safely return to the preadmission environment? Yes * Has this patient been hospitalized within the prior 30 days at any hospital? No Coverage Notice Reviewer: [id number] - Cony Potts Notice Issued Date-Time: 05/23/2019 14:10 Notice Type: Patient Choice Letter Notice Delivered To: Patient Relationship to Patient: Account Underwriter Name: Delivery Method: - Nathaly Days: Prior Verbal Notification: Recipient Understood Notice: Yes Recipient Signature: Yes Med Rec Note Co-signed by Attending: Coverage Notice Comment: Reviewer: [id number] - Maci Rodriguez Notice Issued Date-Time: 06/05/2019 12:15 Notice Type: Patient Choice Letter Notice Delivered To: Patient Relationship to Patient: Self Account Underwriter Name: Delivery Method: HAND - Hand Delivered Nathaly Days: Prior Verbal Notification: Recipient Understood Notice: Yes Recipient Signature: Yes Med Rec Note Co-signed by Attending: Coverage Notice Comment: Reviewer: [id number] - Denice Reynolds Notice Issued Date-Time: 06/11/2019 16:03 Notice Type: IM Discharge Notice Notice Delivered To: Patient Relationship to Patient: Account Underwriter Name: Delivery Method: HAND - Hand Delivered Nathaly Days: Prior Verbal Notification: Recipient Understood Notice: Recipient Signature: Med Rec Note Co-signed by Attending: Coverage Notice Comment: Last DP export: 06/11/19 5:19 pm Patient Name: REED COX Page 17104 at 1825 All edits/amendments must be made on the electronic document DICTATION DATE: 06/11/191824 DIRECT SERVICE WORKER: JAKE 06/11/191824 RPT#: [id number] DC DATE:06/11/19 STATUS: DIS IN [facility] [address] [place] [address] END OF REPORT
--- NOTE | 2019-06-12 15:49 | OP ---
PATIENT NAME: REED COX MEDICAL RECORD: [id number] :55 LOCATION:D.MS [address]18 ADMISSION DATE:05/20/19 SURGEON: EDE NORMAN MD DATE OF OPERATION: 06/10/2019 PREOPERATIVE DIAGNOSIS: Open wound of the left anterior abdominal wall. POSTOPERATIVE DIAGNOSIS: Open wound of the left anterior abdominal wall. PROCEDURE: Wound VAC change out with application of nanofiber graft (Restrata), 7.5 cm x 7.5 cm. SURGEON: Ede Norman MD CLIENT SERVICE ASSOCIATE: Ede Hall MD COMPLICATIONS: None. ANESTHESIA: General. OPERATIVE COURSE: The patient was conveyed to the operating room electively on 06/10/2019. General anesthesia was induced by the anesthesia staff. The black wound VAC sponge was removed. The abdomen was sterilely prepped and draped. The retention sutures were cut. The white sponge was removed. The Restrata was still present. I then applied another Restrata on the first Restrata, which is a nanofibrous implant. I cut a white wound VAC sponge over the graft. I then placed 2 horizontal mattress retentions utilizing #1 nylons over were bumpers, which were red rubber Scott catheters. A black wound VAC sponge was then applied over this. Cellophane-type dressings were applied. I then bridged the sponge out onto the periumbilical abdominal wall. The cellophane-type dressings were scored and a wound VAC disc was applied. It was attached to suction, which held a good "raisin." The patient was then extubated and conveyed to the post-anesthesia care unit. I am going to plan that he can be dismissed home tomorrow with the wound VAC. I want the wound VAC to stay in place for 1 week. I will bring him back to the operating room next Thursday for an outpatient wound VAC change. I am going to plan at that time not to place a white sponge deep to the retention sutures and instead I am going to plan to just apply a black wound VAC sponge. TRANSINT:[id number] Voice Confirmation ID: [id number] DOCUMENT ID: [id number] EDE NORMAN MD at 1546 CC: EDE HALL MD [id number] DICTATION DATE: 06/10/19 185 SKIMMER SCOOP OPERATOR: 06/10/19 0510 DIS IN 06/11/19 [facility] [address] [place] [address]
--- NOTE | 2019-06-13 11:17 | MORECARE ---
CASE MANAGEMENT DISCHARGE SUMMARY PATIENT: REED COX UNIT: [id number] ADM DATE: 05/20/19 AGE: 63 : 55 SEX: M ROOM/BED: D.2218 AUTHOR: LOIS,DOC PHYSICIAN: REFERRING PHYSICIAN: GRAY HALL MD DATE OF SERVICE: 06/13/19 Discharge Plan Patient Name: REED COX Facility: [facility]:[place] : 1955 Planned Disposition: Home or Self Care Anticipated Discharge Date: Discharge Date: 06/11/2019 Expected LOS: Initial Reviewer: [email or web address] Initial Review Date: 05/20/2019 Generated: 06/13/19 12:17 pm Comments DCP- Discharge Planning Updated by [email or web address]: Denice Reynolds on 06/11/19 5:[address] Patient discharged home today with [employer] [facility] and a wound vac from [facility]. CM faxed dc order, summary, and hh order stating HH was not change to wound vac. CM spoke to [facility] with [facility] and notified her of patient's discharge. Tara stated they had the patient on their schedule for Thursday. CM read the order to her that HH was not to change the wound vac. Tara verbalized understanding and stated she would make sure the admission nurse knows to not change to wound vac. Denice Reynolds RN, [facility] DCP- Discharge Planning Updated by [email or web address]: Apurva Jurado on 06/10/19 3:[address] NORMAN TOLD ME HE DID NOT WANT WOUND VAC CHANGED BY [facility] UNTIL AFTER HE WAS SEEN IN THE OFFICE. I CALLED [facility], SPOKE WITH ASHLEIGH AND INFORMED HER OF THIS. I ALSO FAXED AN ORDER THAT THEY WERE NOT TO CHANGE WOUND VAC UNTIL OK BY DR NORMAN. CM WILL CONTINUE TO FOLLOW AND ASSIST WITH DISCHARGE PLANNING/NEEDS. 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 FITO SIGNED FOR [facility]. CM WILL FAX ORDERS AT TIME OF DC. Box Blank Machine Operator Helper: Maci Rodriguez DCP- Discharge Planning Updated by [email or web address]: Cony Potts on 05/23/19 1:[address] Patient Name: REED COX Admission Status: Elective Accout number: [id number] Admission Date: 05-20-2019 : 1955 Admission Diagnosis: Attending: NIMESH HALL Current LOS: 3 Anticipated DC Date: Planned Disposition: Home or Self Care Primary Insurance: [employer] MEDICARE ADV Discharge Planning Comments: CM met with patient to complete initial dc planning assessment. CM educated patient on the CM role and verbal consent given by patient to complete assessment. Patient lives at home with his where he is independent with his care. At discharge patient plans to return home and feels this is a safe discharge. CM discussed availability of home health, rehab services, and medical equipment. He stated that he has home O2, CPAP, nebulizer, portable O2, pulse ox & blood pressure machine at home. His DME of choice is [facility] [facility]. FITO signed and placed in chart. 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 Patient denied known discharge needs at this time. CM will continue to follow and will assist as needed with dc plans/needs. Box Blank Machine Operator Helper: Cony Potts DCPIA - Discharge Planning Initial Assessment Updated by [id number]: Cony Potts on 05/23/19 2:13 pm * Is the patient Alert and Oriented? Yes * How many steps to enter\exit or inside your home? * PCP [place] * Pharmacy [facility] * Preadmission Environment Home with Family * ADLs Independent * Equipment CPAP Nebulizer Other Oxygen Walker * Other Equipment PULSE OX BLOOD PRESSURE MONITOR * List name and contact numbers for known caregivers / representatives who currently or will assist patient after discharge: YAMILEX () [phone] * Verbal permission to speak to the caregivers and representatives has been obtained from the patient. N/A * Community resources currently utilized None * Additional services required to return to the preadmission environment? No * Can the patient safely return to the preadmission environment? Yes * Has this patient been hospitalized within the prior 30 days at any hospital? No Coverage Notice Reviewer: [id number] - Cony Potts Notice Issued Date-Time: 05/23/2019 14:10 Notice Type: Patient Choice Letter Notice Delivered To: Patient Relationship to Patient: Ammunition Components Inspector Name: Delivery Method: - Nathaly Days: Prior Verbal Notification: Recipient Understood Notice: Yes Recipient Signature: Yes Med Rec Note Co-signed by Attending: Coverage Notice Comment: Reviewer: [id number] - Maci Rodriguez Notice Issued Date-Time: 06/05/2019 12:15 Notice Type: Patient Choice Letter Notice Delivered To: Patient Relationship to Patient: Self Ammunition Components Inspector Name: Delivery Method: HAND - Hand Delivered Nathaly Days: Prior Verbal Notification: Recipient Understood Notice: Yes Recipient Signature: Yes Med Rec Note Co-signed by Attending: Coverage Notice Comment: Reviewer: [id number] - Denice Reynolds Notice Issued Date-Time: 06/11/2019 16:03 Notice Type: IM Discharge Notice Notice Delivered To: Patient Relationship to Patient: Ammunition Components Inspector Name: Delivery Method: HAND - Hand Delivered Nathaly Days: Prior Verbal Notification: Recipient Understood Notice: Recipient Signature: Med Rec Note Co-signed by Attending: Coverage Notice Comment: Last DP export: 06/11/19 5:25 pm Patient Name: REED COX Page 38717 at 1117 All edits/amendments must be made on the electronic document DICTATION DATE: 06/13/19 1116 KENNEL ASSISTANT: JAKE 06/13/19 1116 RPT#: [id number] DC DATE:06/11/19 STATUS: DIS IN [facility] [address] [place] [address] END OF REPORT
== END 2019-06-11 17:23 | disposition home health service (06) | DRG 656 ==
LOC: D.SDCHOLD 05-20 06:55 → D.ICU 05-20 06:55 → D.MS 05-20 06:55 → D.SDCHOLD 05-20 09:30 → D.ICU 05-20 16:24 → D.MS 05-22 18:31
PROVIDERS: Anesthesiology; Emergency Medicine; Internal Medicine Nephrology; Surgery; ADMIT Urology; ATTEND Urology
PROC: 0TT10ZZ Resection of Left Kidney, Open Approach (ICD-10-PCS; principal; 2019-05-20 10:00)
PROC: 0HB7XZZ Excision of Abdomen Skin, External Approach (ICD-10-PCS; 2019-05-30)
PROC: 2W13X6Z Compression of Abdominal Wall using Pressure Dressing (ICD-10-PCS; 2019-06-03)
PROC: 0HR7XK4 Replacement of Abdomen Skin with Nonautologous Tissue Substitute, Partial Thickness, External Approach (ICD-10-PCS; 2019-06-03 07:30)
PROC: 2W13X6Z Compression of Abdominal Wall using Pressure Dressing (ICD-10-PCS; 2019-06-10)
DX: D41.02 Neoplasm of uncertain behavior of left kidney (principal); N17.0 Acute kidney failure with tubular necrosis; J96.01 Acute respiratory failure with hypoxia; I50.23 Acute on chronic systolic (congestive) heart failure; Z68.42 Body mass index [BMI] 45.0-49.9, adult; T81.49XA Infection following a procedure, other surgical site, initial encounter; T23.232A Burn of second degree of multiple left fingers (nail), not including thumb, initial encounter; E66.01 Morbid (severe) obesity due to excess calories; I11.0 Hypertensive heart disease with heart failure; I50.9 Heart failure, unspecified; I25.10 Atherosclerotic heart disease of native coronary artery without angina pectoris

== ENCOUNTER 2019-06-17 08:53 | Inpatient (IN) | payer MEDICARE ==
[~2019-06-17] VITALS: Ht 185.4 cm; Wt 164.8 kg
[2019-06-17 08:51] VITALS: BMI 45.7
[~2019-06-17 08:53] MED LIST changes: +AMIODARONE HCL200 MG; +COLACE100 MG PO; +DOXYCYCLINE HY100 M2 PO; +FLORAJEN3 CAPS460 MG PO; +HYDROCODON-ACE1 EAC7 PO; +VIBRAMYCIN 100100 MG PO
[2019-06-17 09:01] LABS: HEMATOCRIT 36.5 % (42.0-54.0); HEMOGLOBIN 11.8 g/dL (13.5-17.5); MCH 32.5 pg (26.0-34.0); MCHC 32.3 g/dL (31.0-37.0); MCV 100.6 fL (80.0-100.0); MEAN PLATELET VOLUME 11.8 fL (7.4-10.4); RBC 3.63 10x6/uL (4.20-6.10); RDW 18.3 % (11.5-14.5); WBC 7.6 10x3/uL (4.8-10.8)
[2019-06-17 09:58] LABS: ANION GAP 13.5 mmol/L (8-16); CALCIUM 8.3 mg/dL (8.5-10.1); CARBON DIOXIDE 26.1 mmol/L (21.0-32.0); CREATININE - SERUM 3.1 mg/dL (0.6-1.3); POTASSIUM - SERUM 4.6 mmol/L (3.5-5.1)
--- NOTE | 2019-06-17 13:13 | NUR ---
1200-REC'D FROM RR. DROWSY EASILY AROUSED WITH VERBAL STIMULI. DENIES COMPLAINTS,VSS. WOUND VAC TO LEFT FLANK AT 125MM/HG. AT BEDSIDE, CL IN EASY REACH
--- NOTE | 2019-06-17 13:20 | NUR ---
1300-TOLERATED FULL LIQUID TRAY. DENIES COMPLAINTS. WOUND VAC IN PLACE AT 125MM/HG
--- NOTE | 2019-06-17 13:43 | NUR ---
PATIENT DISCHARGED FROM OPS WITH ORDERS TO BE A DIRECT ADMIT TO MED SURG UNDER DR. BIRMINGHAM. VSS, IV PATENT TO RIGHT AC AT KVO. WOUND VAC INTACT AT 125MM/HG. VSS WITHOUT COMPLAINTS.
[2019-06-17 14:23] VITALS: BP 96/48; BMI 44.1
--- NOTE | 2019-06-17 14:30 | NUR ---
PATIENT ADMITTED TO ROOM 2208. ADMISSION ASSESSMENT COMPLETE. TAKEN FOR STAT CT.
--- NOTE | 2019-06-17 14:55 | NUR ---
Rehab Note- Acute Inpatient REhab prescreen order received. The patient has [employer] insurance and will require a Pre Auth- he has a pending PT & OT Evals that will be needed for PreAuth- Will follow at this time. Thank you for this referral! Randi Piper RN Clinical Liaison, [facility] Rehab
--- NOTE | 2019-06-17 15:00 | NUR ---
MEPILEX PLACED TO PATENT COCCYX/BUTTOCKS FOR STAGE 2 PU X 3 ON ADMISSION.
[2019-06-17 15:25] LABS: CKMB 3.7 U/L (0.0-3.6); CREATINE KINASE 102 UL (21-232); TROPONIN-I < 0.017 ng/mL (0.000-0.060)
--- NOTE | 2019-06-17 17:27 | NUR ---
IV SITED TO JOSE ALEJANDRO PER ICU NURSE.
--- NOTE | 2019-06-17 18:01 | NUR ---
CAFETERIA TABLE ATTENDANT KNIT GOODS CUTTER HAND PAIGED PER PT REQUEST TO SEE IF CAN COME TALK TO FAMILY.
--- NOTE | 2019-06-17 18:45 | NUR ---
RESTING IN BED. DENIES PAIN. DENIES NEEDS. AT BEDSIDE.
[2019-06-17 20:07] VITALS: BP 124/58
[2019-06-17 20:17] LABS: CKMB 3.9 U/L (0.0-3.6); CREATINE KINASE 114 UL (21-232)
[2019-06-17 20:19] LABS: TROPONIN-I < 0.017 ng/mL (0.000-0.060)
[2019-06-18] VITALS (11 sets, daily range): BP systolic 89–142; BP diastolic 41–73; Ht 185.4 cm; Wt 164.8 kg
--- NOTE | 2019-06-18 02:03 | NUR ---
ORIENTED X 4, APPEARS LETHARGIC. 3.5L O2 IN USE, PT IS MOUTH BREATHING AND RESPIRATIONS APPEAR LABORED, BUT VITAL SIGNS ARE STABLE. PT DENIES PAIN. REPORTS HE HAS BEEN FALLING AT HOME LATELY. STATES HE'S BEEN ASLEEP ALL DAY SO HAS NOT EATEN. INCISION AND WOUND VAC TO ABDOMEN C/D/I. DENIES NEEDS AT THIS TIME. WILL CONTINUE TO MONITOR.
[2019-06-18 02:50] LABS: BASOPHILS 0.3 % (0-2); EOSINOPHILS 5.7 % (0-7); HEMATOCRIT 39.3 % (42.0-54.0); HEMOGLOBIN 12.6 g/dL (13.5-17.5); IMMATURE GRANULOCYTES 0.4 % (0-5); MCH 32.6 pg (26.0-34.0); MCHC 32.1 g/dL (31.0-37.0); MCV 101.6 fL (80.0-100.0); MEAN PLATELET VOLUME 12.1 fL (7.4-10.4); MONOCYTES 6.1 % (2-11); NEUTROPHILS 82.5 % (40-80); PLATELET COUNT 219 10x3/uL (130-400); RBC 3.87 10x6/uL (4.20-6.10); RDW 18.5 % (11.5-14.5)
[2019-06-18 03:21] LABS: ALBUMIN 2.6 g/dL (3.4-5.0); ALKALINE PHOSPHATASE 134 U/L (46-116); ALT (SGPT) 33 U/L (10-68); BILIRUBIN - TOTAL 0.49 mg/dL (0.2-1.3); CALC OSMOLALITY 277 mosm/kg (275-300); CALCIUM 8.5 mg/dL (8.5-10.1); CHLORIDE - SERUM 106 mmol/L (98-107); CKMB 3.4 U/L (0.0-3.6); CREATINE KINASE 106 UL (21-232); CREATININE - SERUM 2.8 mg/dL (0.6-1.3); GLUCOSE 110 mg/dL (74-106); PROTEIN - SERUM 6.8 g/dL (6.4-8.2); SODIUM 137 mmol/L (136-145); TROPONIN-I < 0.017 ng/mL (0.000-0.060); UREA NITROGEN 20 mg/dL (7-18); eGFR NON AFRICAN AMERICAN 24 mL/min (90-120)
--- NOTE | 2019-06-18 06:33 | NUR ---
I have reviewed this patient and I concur with the Shift Assessment completed by the Licensed Practical Nurse today this shift.
--- NOTE | 2019-06-18 07:20 | NUR ---
ENTERED ROOM IN RESPONSE TO ENRIQUE ALARM. PT ON KNEES FACING BED IN ROOM. STATES HE WAS GOING TO THE BATHROOM, AND FELL. 2 AIDS AND 3 NURSES CAME FOR ASSISTANCE TO RAISE PT BACK TO BED. ABRASION TO KNEE NOTED. VITAL SIGNS ARE STABLE. BED IS IN LOW POSITION, ENRIQUE ALARM IS ON AND FUNCTIONING. SIDE RAILS X 3. REINFORCED FALL PRECAUTIONS TO PT. PROPERTY MAN AND MD NOTIFIED.
[2019-06-18 15:35] LABS: APPEARANCE CLEAR (CLEAR); BILIRUBIN NEGATIVE (NEGATIVE); COLOR YELLOW (YELLOW); GLUCOSE NEGATIVE (NEGATIVE); KETONE NEGATIVE (NEGATIVE); NITRITE NEGATIVE (NEGATIVE); PROTEIN NEGATIVE (NEGATIVE); UROBILINOGEN NORMAL (NORMAL)
--- NOTE | 2019-06-18 16:42 | NUR ---
REC'D PT TO ICU, ABG'S DRAWN AND CALLED TO DR ANDERSON. BIPAP SET UP BY RT. AT . ATTEMPTS TO START IV BY SEVERAL ICU NURSES FAILED TO OBTAIN ACCESS. DR ANDERSON PAGED.
--- NOTE | 2019-06-18 18:08 | NUR ---
DR CORNELIUS PLACED CVL. CONCENT SIGNED BY BY PHONE CONCENT. CXR DONE.
--- NOTE | 2019-06-18 19:10 | NUR ---
CVP SET UP, CVP IS 8 AT PRESENT. WILL HOLD LASIX ORDERED.
--- NOTE | 2019-06-18 22:18 | NUR ---
190 PT ASSESSMENT COMPLETED AT THIS TIME. NO CHANGES NOTED FROM REPORT. V/S STABLE AT THIS TIME 2009 PT'S SPOUSE CALLED FOR AN UPDATE ON THE PATIENTS COND. PT INFORMATION WAS RELAYED AND SHE WAS ADVISED TO CALL BACK WITH ANY QUESTIONS OR CONCERNS ABOUT THE PATIENT. 2044 DR. ANDEROSN CALLED ABOUT ANOTHER PATIENT AND WAS ASKED ABOUT PO MEDICINE WHILE PATIENT IS LETHARGIC, MD ORDERED TO HOLD PO MEDS AT THIS TIME AND CHANGE PO ANITIBIOTICS TO IV 2100 NO CHANGES NOTED IN THE PATIENT. MEDS HELD PER DR. SINGH
[2019-06-19] VITALS (25 sets, daily range): BP systolic 82–118; BP diastolic 39–79
[2019-06-19 05:43] LABS: HEMATOCRIT 32.1 % (42.0-54.0); HEMOGLOBIN 10.3 g/dL (13.5-17.5); MCH 32.9 pg (26.0-34.0); MCHC 32.1 g/dL (31.0-37.0); MCV 102.6 fL (80.0-100.0); MEAN PLATELET VOLUME 11.7 fL (7.4-10.4); RBC 3.13 10x6/uL (4.20-6.10); RDW 17.8 % (11.5-14.5); WBC 6.3 10x3/uL (4.8-10.8)
[2019-06-19 05:44] LABS: PLATELET COUNT 132 10x3/uL (130-400)
[2019-06-19 06:04] LABS: ANION GAP 12.9 mmol/L (8-16); BILIRUBIN - TOTAL 0.5 mg/dL (0.2-1.3); CALCIUM 7.9 mg/dL (8.5-10.1); CARBON DIOXIDE 23.8 mmol/L (21.0-32.0); POTASSIUM - SERUM 4.7 mmol/L (3.5-5.1); PROTEIN - SERUM 5.4 g/dL (6.4-8.2)
--- NOTE | 2019-06-19 06:35 | NUR ---
2300 REASSMENT COMPLETED AT THIS TIME, PT AWKAING TO NAME AND FOLLOWING COMMANDS, WILL MONITOR FOR CHANGES 0100 NO CHANGES IN PATIENTS COND. WILL CONT TO MONITOR. 0300 REASSESSMENT COMPLETED AT THIS TIME, PT WAKING UP TO NAME AND FOLLOWING COMMANDS, PT ALSO ANSWERING QUESTIONS CLEARLY, WILL MONITOR FOR CHANGES 0500 I&O AND DAILY WEIGHTS COMPLETED AT THSI TIME. NO DISTRESS NOTED
--- NOTE | 2019-06-19 10:52 | NUR ---
BIPAP REMOVED AND PLACED ON 3LNC. PT VIJAY WELL. PT TOOK PO MEDS AND SIPS OF HIS DRINK WITH OUT PROBLEMS. PT ASKING HOW LONG HE HAS BEEN HERE.
[2019-06-19 11:28] LABS: EOSINOPHILS 7 % (0-7); LYMPHOCYTES 10 % (15-50); MONOCYTES 3 % (2-11); NEUTROPHILS 80 % (40-80); PLATELET ESTIMATE NORMAL
--- NOTE | 2019-06-19 16:19 | NUR ---
BIPAP OFF 4LNC PLACED. AT BS.
--- NOTE | 2019-06-19 19:30 | NUR ---
pt alert, follows commands, r tlsc intact with ns @ 60cc/hr, loose bm x 1 per bedpan
--- NOTE | 2019-06-19 21:41 | NUR ---
pt awake, r.t. to bedside, pt wishes to wait 1 hr before going back on bipap
--- NOTE | 2019-06-19 23:47 | NUR ---
resting quietly, arouses easily, no distress
[2019-06-20] VITALS (23 sets, daily range): BP systolic 78–112; BP diastolic 43–65
--- NOTE | 2019-06-20 01:30 | NUR ---
pt asleep on bipap with no distress
--- NOTE | 2019-06-20 03:13 | NUR ---
remains asleep on bipap, no distress noted
[2019-06-20 05:06] LABS: BASOPHILS 0.1 % (0-2); EOSINOPHILS 12.6 % (0-7); HEMATOCRIT 31.4 % (42.0-54.0); HEMOGLOBIN 10.1 g/dL (13.5-17.5); IMMATURE GRANULOCYTES 0.1 % (0-5); LYMPHOCYTES 12.2 % (15-50); MCHC 32.2 g/dL (31.0-37.0); MEAN PLATELET VOLUME 11.5 fL (7.4-10.4); MONOCYTES 9.3 % (2-11); NEUTROPHILS 65.7 % (40-80); PLATELET COUNT 139 10x3/uL (130-400); RBC 3.16 10x6/uL (4.20-6.10); RDW 17.8 % (11.5-14.5)
[2019-06-20 05:15] LABS: MCV 99.4 fL (80.0-100.0); WBC 8.2 10x3/uL (4.8-10.8)
[2019-06-20 05:20] LABS: ALBUMIN 1.9 g/dL (3.4-5.0); ANION GAP 12.7 mmol/L (8-16); BILIRUBIN - TOTAL 0.39 mg/dL (0.2-1.3); CALCIUM 7.6 mg/dL (8.5-10.1); CARBON DIOXIDE 23.6 mmol/L (21.0-32.0); CREATININE - SERUM 2.7 mg/dL (0.6-1.3); MAGNESIUM - SERUM 1.4 mg/dL (1.8-2.4); PHOSPHOROUS 3.4 mg/dL (2.5-4.9); POTASSIUM - SERUM 4.3 mmol/L (3.5-5.1); PROTEIN - SERUM 5.4 g/dL (6.4-8.2)
--- NOTE | 2019-06-20 05:28 | NUR ---
REMAINS ASLEEP, BIPAP IN USE, NO DISTRESS NOTED, WOUND VAC DRSG INTACT
--- NOTE | 2019-06-20 07:00 | NUR ---
REPORT RECEIVED. ASSESSMENT COMPLETE PER FLOW SHEET. VSS. NO NEW CHANGES WILL CONTINUE TO MONITOR DENIES NEEDS
--- NOTE | 2019-06-20 09:10 | NUR ---
0900 MEDS ADM WITH OUT DIFFICULTY. DENIES NEEDS WILL CONTINUE TO MONITOR
--- NOTE | 2019-06-20 09:30 | NUR ---
Nutrition follow-up: Diet: Renal ADA Pt has been NPO Now in ICU due to BP issues Wound VAC in place Labs reviewed Wt: 356# RDN following.
--- NOTE | 2019-06-20 11:00 | NUR ---
PT GIVEN LUNCH TRAY ATE 50% DENIES NEEDS WILL CONTINUE TO MONITOR
--- NOTE | 2019-06-20 13:10 | NUR ---
DOROTHY WITH SPEECH AT BEDSIDE GIVEN UDPATE
--- NOTE | 2019-06-20 15:12 | NUR ---
NO NEW CHANGES PT SLEEPING COMFORTABLY WILL CONTINUE TO MONITOR
--- NOTE | 2019-06-20 17:10 | NUR ---
FAMILY AT BEDSIDE GIVEN UDPATE. DR CORTES GIVEN UPDATE IN REGAURDS TO FAMILY CONCERNS. NEW ORDER RECIVED.
--- NOTE | 2019-06-20 19:30 | NUR ---
PT A/O X4, VOICES NEEDS, LOOSE BM X1 IN BEDPAN, PT BATHED, VITALS STABLE
--- NOTE | 2019-06-20 21:30 | NUR ---
RESTING QUIETLY WITH BIPAP IN USE
--- NOTE | 2019-06-20 23:39 | NUR ---
PT ASLEEP ON BIPAP WITHOUT DISTRESS, VITALS STABLE
[2019-06-21] VITALS (16 sets, daily range): BP systolic 90–141; BP diastolic 51–81
--- NOTE | 2019-06-21 01:30 | NUR ---
PT SLEEPING WITH BIPAP IN USE, VITALS STABLE
--- NOTE | 2019-06-21 03:20 | NUR ---
NO CHANGE IN STATUS
--- NOTE | 2019-06-21 05:47 | NUR ---
PT AROUSES EASILY, NO C/O
[2019-06-21 06:39] LABS: BASOPHILS 0.3 % (0-2); EOSINOPHILS 12.9 % (0-7); HEMATOCRIT 31.1 % (42.0-54.0); HEMOGLOBIN 10.1 g/dL (13.5-17.5); IMMATURE GRANULOCYTES 0.1 % (0-5); LYMPHOCYTES 14.2 % (15-50); MCH 31.9 pg (26.0-34.0); MCHC 32.5 g/dL (31.0-37.0); MCV 98.1 fL (80.0-100.0); MEAN PLATELET VOLUME 11.6 fL (7.4-10.4); MONOCYTES 9.2 % (2-11); NEUTROPHILS 63.3 % (40-80); PLATELET COUNT 133 10x3/uL (130-400); RBC 3.17 10x6/uL (4.20-6.10); RDW 17.7 % (11.5-14.5); WBC 7.1 10x3/uL (4.8-10.8)
--- NOTE | 2019-06-21 06:58 | NUR ---
REPORT RECEIVED. ASSESSMENT COMPLETE PER FLOW SHEET. VSS. PT DENIES NEEDS WILL CONTINUET O MONITOR
--- NOTE | 2019-06-21 08:10 | OP ---
PATIENT NAME: REED COX MEDICAL RECORD: [id number] :[birth year] LOCATION:D.[facility] D.2305 ADMISSION DATE:06/17/19 SURGEON: IGLBERT CORNELIUS MD DATE OF OPERATION: 06/18/2019 PREOPERATIVE DIAGNOSES: 1. Acute respiratory failure with hypoxia. 2. ETOH abuse with possible withdrawal. 3. Zjvvw-xq-uylzguz systolic congestive heart failure. 4. Ischemic cardiomyopathy. 5. Acute kidney injury status post left radical nephrectomy. 6. Morbid obesity. 7. Coronary artery disease. 8. Need for IV access. POSTOPERATIVE DIAGNOSES: 1. Acute respiratory failure with hypoxia. 2. ETOH abuse with possible withdrawal. 3. Dbgnl-cs-thmrhei systolic congestive heart failure. 4. Ischemic cardiomyopathy. 5. Acute kidney injury status post left radical nephrectomy. 6. Morbid obesity. 7. Coronary artery disease. 8. Need for IV access. PROCEDURE: Right subclavian vein triple-lumen central venous line placement. SURGEON: Gilbert Cornelius MD REPORT OF PROCEDURE: The patient's left chest was prepped and draped in sterile fashion. A total of 5 mL of 1% lidocaine with epinephrine was infused into the surrounding tissues. A needle was then used to cannulate the left subclavian vein and a guidewire was advanced with ease. A dilator was placed over the wire followed by the triple lumen catheter. The catheter aspirated nonpulsatile dark blood and flushed easily in all 3 ports. This was sutured into place with 4-0 nylons and dressed appropriately. X-ray showed this to be in good position in the venous system. COMPLICATIONS: None. CONDITION: Fair. ANESTHESIA: Local. BLOOD LOSS: Minimal. Procedure done at the bedside. TRANSINT:[id number] Voice Confirmation ID: [id number] DOCUMENT ID: [id number] OPERATIVE REPORT [id number] REED COX GILBERT CORNELIUS MD at 0810 CC: [id number] DICTATION DATE: 06/18/191815 LEATHER ETCHER: 06/18/19 2317 ADM IN [place] [id number] [place] [address]
[2019-06-21 08:28] LABS: ANION GAP 15.9 mmol/L (8-16); BILIRUBIN - TOTAL 0.34 mg/dL (0.2-1.3); CALCIUM 7.8 mg/dL (8.5-10.1); CARBON DIOXIDE 20.4 mmol/L (21.0-32.0); CREATININE - SERUM 2.5 mg/dL (0.6-1.3); MAGNESIUM - SERUM 1.5 mg/dL (1.8-2.4); PHOSPHOROUS 3.2 mg/dL (2.5-4.9); POTASSIUM - SERUM 4.3 mmol/L (3.5-5.1); PROTEIN - SERUM 5.5 g/dL (6.4-8.2)
--- NOTE | 2019-06-21 09:20 | NUR ---
0900 MEDS ADM. NO NEW CHANGES RESTING COMFORTABLY WILL CONTINUE TO [facility]
--- NOTE | 2019-06-21 10:30 | OP ---
PATIENT NAME: REED COX MEDICAL RECORD: [id number] :[birth year] LOCATION:D.[facility] D.2305 ADMISSION DATE:06/17/19 SURGEON: EDE NORMAN MD DATE OF OPERATION: 06/17/2019 PREOPERATIVE DIAGNOSIS: Open wound, left lower quadrant. POSTOPERATIVE DIAGNOSIS: Open wound, left lower quadrant. PROCEDURE: Wound VAC change out with placement of synthetic nanofiber mesh (Restrata). Two of the matrices were applied to wound. One was 7.5 x 7.5 cm. The other was 5.0 x 5.0 cm. Each was meshed 1:1-1/2. SURGEON: Ede Norman MD APPLICATION SYSTEMS ENGINEER: Dr. Ede Hall. BLOOD LOSS: Minimal. ANESTHESIA: General. COMPLICATIONS: None. The risks, possible complications and alternatives to the procedure were explained to the patient. He elects to proceed. OPERATIVE COURSE: The patient was conveyed to the operating room electively on 06/17/2019. General anesthesia was induced by the anesthesia staff. The abdomen was sterilely prepped and draped after the retention sutures and the white sponge was removed. The black sponge had been removed previously. The patient had been messing with the wound VAC at home and ended up causing the black sponge to fail. The black sponge was removed and the patient has been getting saline wet to dry dressing changes at home. The above size Restrata was meshed 1:1-1/2. Each was placed in the wound in areas of undermining. Two retention sutures, which were horizontal mattress retentions were placed over rubber bumpers. We were able to approximate the wound edges without the use of an underlay white sponge. A black sponge was placed in the granulation bed in the middle of the wound. It was then bridged out on to the anterior abdominal wall, cephalad to the umbilicus. An incision was accomplished in the cellophane-type dressing and the wound VAC disc was applied. It was attached to suction, which held a good "raisin." The patient was then extubated and conveyed to the post-anesthesia care unit. I am going to plan for home health care to change the black sponge 3 times weekly. I will see him back in the office in about 3 weeks. TRANSINT:[id number] Voice Confirmation ID: [id number] DOCUMENT ID: [id number] OPERATIVE REPORT [id number] REED COX ROBERT MD at 1030 CC: EDE HALL MD [id number] DICTATION DATE: 06/17/19 1109 4TH GRADE MATH TEACHER: 06/17/19 1129 ADM IN [facility] [address] [place] [address]
--- NOTE | 2019-06-21 11:40 | NUR ---
GIVEN LUNCH TRAY ATE 100% DENIES NEEDS WILL CONTINUE TO MONITOR
--- NOTE | 2019-06-21 13:20 | NUR ---
DR CORTES AT BEDSIDE GIVENUPDATE. NO NEW ORDERS
--- NOTE | 2019-06-21 14:45 | NUR ---
Rehab Note- Clinicals faxed for review for possible inpatient acute rehab stay. Will await determination from [facility] at this time for possible inpatient acute rehab stay. Will follow at this time. Randi Piper RN Clinical Liaison, [facility] Rehab
--- NOTE | 2019-06-21 15:40 | NUR ---
PT SLEEPING COMFORTABLY VSS NO NEW CHANGES WILL CONTINUE TO MONITOR
--- NOTE | 2019-06-21 17:12 | NUR ---
FAMILY AT BEDSIDE UPDATE GIVEN
--- NOTE | 2019-06-21 19:22 | MORECARE ---
CASE MANAGEMENT DISCHARGE SUMMARY PATIENT: REED PATEL PRATIMA UNIT: [id number] ADM DATE: 06/17/19 AGE: 63 : 55 SEX: M ROOM/BED: D.2305 AUTHOR: SIOBHAN ABREU PHYSICIAN: REFERRING PHYSICIAN: ELMA BIRMINGHAM MD DATE OF SERVICE: 06/21/19 Discharge Plan Patient Name[facility] REED PATEL [facility] [facility] 1955 Planned Disposition: Home Anticipated Discharge Date: Discharge Date: Expected LOS: Initial Reviewer: [email or web address] Initial Review Date: 06/21/2019 Generated: 06/21/19 8:22 pm DCPIA - Discharge Planning Initial Assessment Updated by [email or web address]: Ijeoma Gannon on 06/21/19 7:19 pm * Is the patient Alert and Oriented? Yes * How many steps to enter\exit or inside your home? ramp * PCP [place] * Pharmacy [place] * Preadmission Environment Home with Family * ADLs Independent * Other Equipment walker, home/ portable 02, nebulizer, CPAP, cane, sc, bsc, pulse ox * List name and contact numbers for known caregivers / representatives who currently or will assist patient after discharge: Olga Patel - - [phone] * Verbal permission to speak to the caregivers and representatives has been obtained from the patient. Yes * Community resources currently utilized Home Health * Please name any agencies selected above. [facility] * Additional services required to return to the preadmission environment? No * Can the patient safely return to the preadmission environment? Yes * Has this patient been hospitalized within the prior 30 days at any hospital? Yes Patient Name: REED PATEL Page 05479 at 1922 All edits/amendments must be made on the electronic document DICTATION DATE: 06/21/191921 WINDOWS SERVER ARCHITECT: JAKE 06/21/191921 RPT#: [id number] DC DATE: STATUS: ADM IN [facility] [address] [place] [address] END OF REPORT
--- NOTE | 2019-06-21 19:29 | MORECARE ---
CASE MANAGEMENT DISCHARGE SUMMARY PATIENT: REED PATEL UNIT: [id number] ADM DATE: 06/17/19 AGE: 63 : 55 SEX: M ROOM/BED: D.2305 AUTHOR: SIOBHAN ABREU PHYSICIAN: REFERRING PHYSICIAN: ELMA BIRMINGHAM MD DATE OF SERVICE: 06/21/19 Discharge Plan Patient Name: REED PATEL Facility: [facility]:[place] : 1955 Planned Disposition: Home Anticipated Discharge Date: Discharge Date: Expected LOS: Initial Reviewer: [email or web address] Initial Review Date: 06/21/2019 Generated: 06/21/19 8:28 pm Comments DCP- Discharge Planning Updated by [id number]: Ijeoma Gannon on 06/21/19 6:[address] Patient Name: REED PATEL Admission Status: Elective Accout number: [id number] Admission Date: 06-17-2019 : 1955 Admission Diagnosis:ACUTE RESPIRATORY FAILURE WITH HYPOXIA Attending: ELMA BIRMINGHAM Current LOS: 4 Anticipated DC Date: Planned Disposition: Home Primary Insurance: [employer] ADV Discharge Planning Comments: CM met with patient to complete initial dc planning assessment. CM educated patient on the CM role and verbal consent given by patient to complete assessment. Patient lives at home with his where he is independent with his care. At discharge patient plans to return home and feels this is a safe discharge. CM discussed availability of home health, rehab services, and medical equipment. Patient will have family drive him home. Patient has a nebulizer, CPAP and home o2 ( unknown provider ) He also has other medical equipment available. Patient denied known discharge needs at this time. CM will continue to follow and will assist as needed with dc plans/needs. Property And Supply Officer: Ijeoma Gannon DCPIA - Discharge Planning Initial Assessment Updated by [id number]: Ijeoma Gannon on 06/21/19 7:19 pm * Is the patient Alert and Oriented? Yes * How many steps to enter\exit or inside your home? ramp * PCP [place] * Pharmacy [place] * Preadmission Environment Home with Family * ADLs Independent * Other Equipment walker, home/ portable 02, nebulizer, CPAP, cane, sc, bsc, pulse ox * List name and contact numbers for known caregivers / representatives who currently or will assist patient after discharge: Olga Patel - - [phone] * Verbal permission to speak to the caregivers and representatives has been obtained from the patient. Yes * Community resources currently utilized Home Health * Please name any agencies selected above. [facility] * Additional services required to return to the preadmission environment? No * Can the patient safely return to the preadmission environment? Yes * Has this patient been hospitalized within the prior 30 days at any hospital? Yes Last DP export: 06/21/19 6:22 p Patient Name: REED PATEL Page 70834 at 1929 All edits/amendments must be made on the electronic document DICTATION DATE: 06/21/191927 BALANCER: JAKE 06/21/191927 RPT#: [id number] DC DATE: STATUS: ADM IN [facility] [address] [place] [address] END OF REPORT
--- NOTE | 2019-06-21 19:30 | NUR ---
pt alert, sitting up in chair at bedside, no c/o
--- NOTE | 2019-06-21 21:30 | NUR ---
awake in bed, watching tv, vitals stable
--- NOTE | 2019-06-21 23:16 | NUR ---
pt asleep with bipap in use, vitals stable
[2019-06-22] VITALS (9 sets, daily range): BP systolic 106–154; BP diastolic 55–74
--- NOTE | 2019-06-22 01:30 | NUR ---
pt asleep, bipap in use, vitals stable
--- NOTE | 2019-06-22 03:30 | NUR ---
remains asleep with no changes
[2019-06-22 04:44] LABS: BASOPHILS 0.3 % (0-2); EOSINOPHILS 13.4 % (0-7); HEMATOCRIT 31.8 % (42.0-54.0); HEMOGLOBIN 10.3 g/dL (13.5-17.5); LYMPHOCYTES 19.6 % (15-50); MCH 31.7 pg (26.0-34.0); MCHC 32.4 g/dL (31.0-37.0); MCV 97.8 fL (80.0-100.0); MEAN PLATELET VOLUME 11.9 fL (7.4-10.4); MONOCYTES 10.4 % (2-11); NEUTROPHILS 56.3 % (40-80); PLATELET COUNT 130 10x3/uL (130-400); RBC 3.25 10x6/uL (4.20-6.10); RDW 17.6 % (11.5-14.5); WBC 6.7 10x3/uL (4.8-10.8)
[2019-06-22 05:15] LABS: ANION GAP 14.3 mmol/L (8-16); BILIRUBIN - TOTAL 0.42 mg/dL (0.2-1.3); CARBON DIOXIDE 24.1 mmol/L (21.0-32.0); MAGNESIUM - SERUM 1.6 mg/dL (1.8-2.4); PHOSPHOROUS 2.8 mg/dL (2.5-4.9); POTASSIUM - SERUM 4.4 mmol/L (3.5-5.1); PROTEIN - SERUM 5.5 g/dL (6.4-8.2)
[2019-06-22 05:28] LABS: CREATININE - SERUM 1.8 mg/dL (0.6-1.3)
--- NOTE | 2019-06-22 05:33 | NUR ---
arouses easily with no c/o, no change in status
--- NOTE | 2019-06-22 07:30 | NUR ---
REPORT RECEIVED. ASSESSMENT COMPLETE PER FLOW SHEET. VSS. NO NEW CHANGES WILL CONTNIUE TO MONITOR. PT DENIES NEEDS
--- NOTE | 2019-06-22 09:20 | NUR ---
AT BEDSIDE GIVEN UDPATE. NO NEW CHANGES WILL CONTINUE TO MONITOR
--- NOTE | 2019-06-22 09:40 | NUR ---
Nutrition follow-up: Diet: Renal ADA PO Intake has been 100% of some meals; pt has been NPO for some meals BIPAP in use Labs reviewed Pt reports feeling better Wt: 363# RDN following.
--- NOTE | 2019-06-22 11:50 | NUR ---
PT GIVEN LUNCH TRAY AT 75% DENIES NEEDS WILL CONTINUE TO MONITOR
--- NOTE | 2019-06-22 13:10 | NUR ---
ASSISTED UP OOB TO BEDSIDE COMMODE 150CC LOOSE BM NOTED
--- NOTE | 2019-06-22 14:15 | NUR ---
WOUND VAC DRESSING CHANGE DATE: 06/22/19 WOUND LOCATION: LEFT LOWER ABDOMEN WOUND MEASUREMENTS:13.5CM X 2.5CM X 1.5CM WOUND DESCRIPTION: RED WITH SOME HESS TISSUE. PERIWOUND WITH EXCORIATION MUSCLE, TENDON, OR BONE EXPOSED? NO DRAINAGE AMOUNT/DESCRIPTION: SMALL BLOODY ODOR? NO TYPE OF SPONGE USED AND AMOUNT: BLACK SPONGE (1 IN WOUND BED + 2 FOR PIGTAIL) TEACHING: DRESSING CHANGES 3 TIMES/WEEK PT TOLERATED WELL
--- NOTE | 2019-06-22 15:17 | NUR ---
OT NOTE: PT COMPLETED BED MOB TASKS WITH MAX A, PT COMPLETED EOB SITTING WITH SBA. THANK YOU, LEANN VALENCIA
--- NOTE | 2019-06-22 15:46 | NUR ---
REPORT GIVEN TO LUCITA JOHN. YAMILEX CALLED GIVEN UPDATE ON NEW ROOM. STATED OKAY. TRANSFERED VIA BED.
--- NOTE | 2019-06-22 16:25 | NUR ---
REC'S PT FROM [facility]. NO S/S OF ACUTE DISTRESS. CL IN PLACE.
--- NOTE | 2019-06-22 16:39 | NUR ---
STAGE 2 PRESSURE ULCERS INBETWEEN R AND L BUTTOCK. MEPILEX DRESSING APPLIED.
--- NOTE | 2019-06-22 18:08 | NUR ---
PT RESTING IN BED WATCHING TV. NO S/S OF ACUTE DISTRESS. CL IN PLACE.
--- NOTE | 2019-06-22 20:00 | NUR ---
ASSESSMENT PER FLOW SHEET. PT IS WITHOUT DISTRESS.HAS BEEN UP TO BATHROOM AND NOW BACK TO BED.FALL PREVENTION INITIATED WITH BED ALARM
--- NOTE | 2019-06-23 00:53 | NUR ---
BEEN SLEEPING WELL. PT IS WITHOUT DISTRESS.MONITOR
--- NOTE | 2019-06-23 02:46 | NUR ---
BIPAP SOUNDING ALARM. RESP TO ROOM TO ADJUST MASK. PT IS WITHOUT DISTRESS
[2019-06-23 02:49] VITALS: BP 102/66
[2019-06-23 06:29] VITALS: BP 98/57
--- NOTE | 2019-06-23 06:33 | NUR ---
REMAINS WITHOUT NEEDS,WITHOUT CHANGE FROM INITIAL SHIFT ASSESSMENT. CONT PLAN OF CARE
[2019-06-23 06:55] LABS: BASOPHILS 0.4 % (0-2); EOSINOPHILS 9.6 % (0-7); HEMATOCRIT 33.9 % (42.0-54.0); HEMOGLOBIN 11.1 g/dL (13.5-17.5); IMMATURE GRANULOCYTES 0.2 % (0-5); LYMPHOCYTES 17.1 % (15-50); MCH 31.7 pg (26.0-34.0); MCHC 32.7 g/dL (31.0-37.0); MCV 96.9 fL (80.0-100.0); MEAN PLATELET VOLUME 12.1 fL (7.4-10.4); MONOCYTES 9.8 % (2-11); NEUTROPHILS 62.9 % (40-80); PLATELET COUNT 131 10x3/uL (130-400); RDW 17.8 % (11.5-14.5); WBC 8.3 10x3/uL (4.8-10.8)
[2019-06-23 07:07] LABS: ALBUMIN 2.2 g/dL (3.4-5.0); ANION GAP 13.4 mmol/L (8-16); BILIRUBIN - TOTAL 0.39 mg/dL (0.2-1.3); CALCIUM 8.5 mg/dL (8.5-10.1); CREATININE - SERUM 1.9 mg/dL (0.6-1.3); MAGNESIUM - SERUM 1.7 mg/dL (1.8-2.4); PHOSPHOROUS 2.8 mg/dL (2.5-4.9); POTASSIUM - SERUM 4.4 mmol/L (3.5-5.1)
--- NOTE | 2019-06-23 07:53 | NUR ---
PT RESRING IN BED. BIPAP ON. NO S/S OF ACUTE DISTRESS. CL IN PLACE.
[2019-06-23 10:26] VITALS: BP 104/44
[2019-06-23] MEDS ORDERED: Zoloft PO (10:30)
[2019-06-23] MEDS ORDERED: SINGULAIR10 MG PO (10:30)
[2019-06-23] MEDS ORDERED: LOVENOX40 MG/0.4 SC (10:30)
[2019-06-23] MEDS ORDERED: MERREM 1 GM/NS 11 G1 IV (10:30)
[2019-06-23] MEDS ORDERED: PROTONIX40 MG PO (10:30)
[2019-06-23] MEDS ORDERED: FLUTICASONE PRO16 GM NASAL (10:30)
[2019-06-23] MEDS ORDERED: MULTI-DAY VITAM1 TAB PO (10:30)
[2019-06-23] MEDS ORDERED: LIBRIUM5 MG PO (10:30)
--- NOTE | 2019-06-23 11:52 | MORECARE ---
CASE MANAGEMENT DISCHARGE SUMMARY PATIENT: REED PATEL UNIT: [id number] ADM DATE: 06/17/19 AGE: 63 : 55 SEX: M ROOM/BED: D.2214 AUTHOR: SIOBHAN ABREU PHYSICIAN: REFERRING PHYSICIAN: ELMA BIRMINGHAM MD DATE OF SERVICE: 06/23/19 Discharge Plan Patient Name: REED PATEL Facility: [facility]:[place] : 1955 Planned Disposition: Home Anticipated Discharge Date: Discharge Date: Expected LOS: Initial Reviewer: [email or web address] Initial Review Date: 06/21/2019 Generated: 06/23/19 12:52 pm Comments DCP- Discharge Planning Updated by [email or web address]: Cony Potts on 06/23/19 10:[address] PATIENT HAS BEEN ACCEPTED TO INPATIENT REHAB AT [facility], [facility] AND EXPLAINED TO PATIENT AND . WILL DISCHARGE TO THERE TODAY DCP- Discharge Planning Updated by [id number]: Ijeoma Gannon on 06/21/19 6:[address] Patient Name: REED PATEL Admission Status: Elective Accout number: [id number] Admission Date: 06-17-2019 : 1955 Admission Diagnosis:ACUTE RESPIRATORY FAILURE WITH HYPOXIA Attending: ELMA BIRMINGHAM Current LOS: 4 Anticipated DC Date: Planned Disposition: Home Primary Insurance: [employer] ADV Discharge Planning Comments: CM met with patient to complete initial dc planning assessment. CM educated patient on the CM role and verbal consent given by patient to complete assessment. Patient lives at home with his where he is independent with his care. At discharge patient plans to return home and feels this is a safe discharge. CM discussed availability of home health, rehab services, and medical equipment. Patient will have family drive him home. Patient has a nebulizer, CPAP and home o2 ( unknown provider ) He also has other medical equipment available. Patient denied known discharge needs at this time. CM will continue to follow and will assist as needed with dc plans/needs. Bleach Tester: Ijeoma Gannon DCPIA - Discharge Planning Initial Assessment Updated by [email or web address]: Ijeoma Gannon on 06/21/19 7:19 pm * Is the patient Alert and Oriented? Yes * How many steps to enter\exit or inside your home? ramp * PCP [place] * Pharmacy [facility] * Preadmission Environment Home with Family * ADLs Independent * Other Equipment walker, home/ portable 02, nebulizer, CPAP, cane, sc, bsc, pulse ox * List name and contact numbers for known caregivers / representatives who currently or will assist patient after discharge: Olga Patel - - [phone] * Verbal permission to speak to the caregivers and representatives has been obtained from the patient. Yes * Community resources currently utilized Home Health * Please name any agencies selected above. [facility] * Additional services required to return to the preadmission environment? No * Can the patient safely return to the preadmission environment? Yes * Has this patient been hospitalized within the prior 30 days at any hospital? Yes Coverage Notice Reviewer: [id number] Sabiha Potts Notice Issued Date-Time: 06/23/2019 11:40 Notice Type: IM Discharge Notice Notice Delivered To: Family Member Relationship to Patient: Spouse Sales Product Manager Name: OLGA Delivery Method: HAND - Hand Delivered Nathaly Days: Prior Verbal Notification: Recipient Understood Notice: Yes Recipient Signature: Yes Med Rec Note Co-signed by Attending: Coverage Notice Comment: Last DP export: 06/21/19 6:29 p Patient Name: REED PATEL Page 15939 at 1152 All edits/amendments must be made on the electronic document DICTATION DATE: 06/23/19 1152 STEAM AND POWER SUPERINTENDENT: JAKE 06/23/19 1152 RPT#: [id number] DC DATE: STATUS: ADM IN [address] [place] [address] END OF REPORT
--- NOTE | 2019-06-23 12:29 | NUR ---
REHAB PRESCREENING Received Authorization for Acute Inpatient rehab from [facility] on behalf of [facility]. This patient is authorized for acute inpatient rehab for 7 days. Authe# [id number] per Ruthy. Clinicals should be faxed withing 72 hours prior of 06/30/19 in order to obtain further days. Screen has been started. Rehab will contact case management when approvals are in place for admission. Thank you for this referral! Nola Weaver, AERONAUTICAL PROJECT ENGINEER Rehab PD
[2019-06-23 12:43] VITALS: BP 108/54
--- NOTE | 2019-06-23 15:15 | NUR ---
OT NOTE: PT COMPLETED SUPINE TO SIT WITH MIN A FOR LE PLACEMENT. PT COMPLETED SIT TO STAND WITH CGA. PT COMPLETED SIMPLE HYGIENE TASK WITH SET UP. PT IS COOPERATIVE AND FUNCTIONALLY MORE I THAN PREVIOUS VISIT. FAMILY AT BEDSIDE. THANK YOU, LEANN VALENCIA
--- NOTE | 2019-06-23 16:39 | NUR ---
REHAB NOTE Received Auth from [email or web address] on behalf of [facility] with the incorrect facility name. [facility] who gave me an updated Auth number of #[id number]. Patient is authorized for 7 days of acute inpatient rehab. Updated clinical information should be faxed within 72 hours prior to 06/30/19. Nola Weaver, Rehab PD
--- NOTE | 2019-06-23 18:24 | NUR ---
DC INSTRUCTIONS AND EDUCATION. NO S/S OF ACUTE DISTRESS. REPORT CALLED TO [facility]. TOOK PT DOWN TO 1113B WITH ALL BELONGINGS.
--- NOTE | 2019-06-29 09:34 | MORECARE ---
CASE MANAGEMENT DISCHARGE SUMMARY PATIENT: REED PATEL UNIT: [id number] ADM DATE: 06/17/19 AGE: 63 : 55 SEX: M ROOM/BED: D.2214 AUTHOR: SIOBHAN ABREU PHYSICIAN: REFERRING PHYSICIAN: ELMA BIRMINGHAM MD DATE OF SERVICE: 06/29/19 Discharge Plan Patient Name: REED PATEL Facility: [facility]:[place] : 1955 Planned Disposition: Home Anticipated Discharge Date: Discharge Date: 06/23/2019 Expected LOS: 0 Initial Reviewer: [email or web address] Initial Review Date: 06/21/2019 Generated: 06/29/19 10:34 am Comments DCP- Discharge Planning Updated by [email or web address]: Cony Potts on 06/23/19 10:[address] PATIENT HAS BEEN ACCEPTED TO INPATIENT REHAB AT [facility], [facility] AND EXPLAINED TO PATIENT AND . WILL DISCHARGE TO THERE TODAY DCP- Discharge Planning Updated by [email or web address]: Ijeoma Gannon on 06/21/19 6:[address] Patient Name: REED PATEL Admission Status: Elective Accout number: [id number] Admission Date: 06-17-2019 : 1955 Admission Diagnosis:ACUTE RESPIRATORY FAILURE WITH HYPOXIA Attending: ELMA BIRMINGHAM Current LOS: 4 Anticipated DC Date: Planned Disposition: Home Primary Insurance: [employer]IC[employer] ADV Discharge Planning Comments: CM met with patient to complete initial dc planning assessment. CM educated patient on the CM role and verbal consent given by patient to complete assessment. Patient lives at home with his where he is independent with his care. At discharge patient plans to return home and feels this is a safe discharge. CM discussed availability of home health, rehab services, and medical equipment. Patient will have family drive him home. Patient has a nebulizer, CPAP and home o2 ( unknown provider ) He also has other medical equipment available. Patient denied known discharge needs at this time. CM will continue to follow and will assist as needed with dc plans/needs. Grinding Machine Tender: Ijeoma Gannon DCPIA - Discharge Planning Initial Assessment Updated by [email or web address]: Ijeoma Gannon on 06/21/19 7:19 pm * Is the patient Alert and Oriented? Yes * How many steps to enter\exit or inside your home? ramp * PCP [place] * Pharmacy [place] * Preadmission Environment Home with Family * ADLs Independent * Other Equipment walker, home/ portable 02, nebulizer, CPAP, cane, sc, bsc, pulse ox * List name and contact numbers for known caregivers / representatives who currently or will assist patient after discharge: Olga Patel - - [phone] * Verbal permission to speak to the caregivers and representatives has been obtained from the patient. Yes * Community resources currently utilized Home Health * Please name any agencies selected above. [facility] * Additional services required to return to the preadmission environment? No * Can the patient safely return to the preadmission environment? Yes * Has this patient been hospitalized within the prior 30 days at any hospital? Yes Coverage Notice Reviewer: [id number] Sabiha Potts Notice Issued Date-Time: 06/23/2019 11:40 Notice Type: IM Discharge Notice Notice Delivered To: Family Member Relationship to Patient: Spouse Sailing Officer Name: OLGA Delivery Method: HAND - Hand Delivered Nathaly Days: Prior Verbal Notification: Recipient Understood Notice: Yes Recipient Signature: Yes Med Rec Note Co-signed by Attending: Coverage Notice Comment: Last DP export: 06/23/19 10:52 a Patient Name: REED PATEL Page 01028 at 0934 All edits/amendments must be made on the electronic document DICTATION DATE: 06/29/19933 RETAIL MARKETING SPECIALIST: JAKE 06/29/1934 RPT#: [id number] DC DATE:06/23/19 STATUS: DIS IN [facility] [address] [place] [address] END OF REPORT
== END 2019-06-23 18:25 | DRG 919 ==
LOC: D.OPS 08:53 → D.PAN 10:10 → D.OPS 10:10 → D.MS 13:14 → D.OPS 13:14 → D.MS 13:46 → D.ICU 13:46 → D.MS 14:00 → D.ICU 06-18 15:59 → D.MS 06-22 15:48 → D.SDCHOLD 06-23 08:25 → D.MS 06-23 08:28
PROVIDERS: Anesthesiology; Internal Medicine Pulmonary Disease; Surgery; ADMIT Emergency Medicine; ATTEND Emergency Medicine
PROC: 05H533Z Insertion of Infusion Device into Right Subclavian Vein, Percutaneous Approach (ICD-10-PCS; principal; 2019-06-17 08:45)
PROC: 2W03X6Z Change Pressure Dressing on Abdominal Wall (ICD-10-PCS; 2019-06-17 08:45)
DX: T81.32XA Disruption of internal operation (surgical) wound, not elsewhere classified, initial encounter (principal); J96.01 Acute respiratory failure with hypoxia; I50.23 Acute on chronic systolic (congestive) heart failure; J96.02 Acute respiratory failure with hypercapnia; G93.41 Metabolic encephalopathy; N17.0 Acute kidney failure with tubular necrosis; Z68.42 Body mass index [BMI] 45.0-49.9, adult; J44.1 Chronic obstructive pulmonary disease with (acute) exacerbation; J98.11 Atelectasis; F10.10 Alcohol abuse, uncomplicated; D53.9 Nutritional anemia, unspecified; G47.33 Obstructive sleep apnea (adult) (pediatric); I11.0 Hypertensive heart disease with heart failure; I25.5 Ischemic cardiomyopathy; N28.9 Disorder of kidney and ureter, unspecified; I25.10 Atherosclerotic heart disease of native coronary artery without angina pectoris; Z95.0 Presence of cardiac pacemaker; I73.9 Peripheral vascular disease, unspecified; Z90.5 Acquired absence of kidney

== ENCOUNTER 2019-06-23 17:39 | Inpatient (IN) | payer MEDICARE ==
[~2019-06-23] VITALS: Ht 185.4 cm; Wt 155.1 kg
[~2019-06-23 17:39] MED LIST changes: +FLUTICASONE PRO16 GM NASAL; +LIBRIUM5 MG PO; +LOVENOX40 MG/0.4 SC; +MERREM 1 GM/NS 11 G1 IV; +MULTI-DAY VITAM1 TAB PO; +PROTONIX40 MG PO; +SINGULAIR10 MG PO; +Zoloft PO
[2019-06-23 19:56] VITALS: BP 110/51
[2019-06-23 22:00] VITALS: BP 110/51; BMI 45.2
[2019-06-24 00:57] LABS: APPEARANCE HAZY (CLEAR); COLOR YELLOW (YELLOW); NITRITE NEGATIVE (NEGATIVE); SPECIFIC GRAVITY 1.015 (1.005-1.020)
[2019-06-24 00:58] LABS: BILIRUBIN NEGATIVE (NEGATIVE); GLUCOSE NEGATIVE (NEGATIVE); KETONE SMALL mg/dL (NEGATIVE); PROTEIN NEGATIVE (NEGATIVE); UROBILINOGEN NORMAL (NORMAL)
[2019-06-24 08:06] VITALS: BP 128/65
[2019-06-24 09:32] LABS: BASOPHILS 0.3 % (0-2); HEMATOCRIT 34.6 % (42.0-54.0); HEMOGLOBIN 11.3 g/dL (13.5-17.5); IMMATURE GRANULOCYTES 0.2 % (0-5); LYMPHOCYTES 18.7 % (15-50); MCH 31.8 pg (26.0-34.0); MCHC 32.7 g/dL (31.0-37.0); MCV 97.5 fL (80.0-100.0); MONOCYTES 8.2 % (2-11); NEUTROPHILS 62.6 % (40-80); PLATELET COUNT 130 10x3/uL (130-400); RBC 3.55 10x6/uL (4.20-6.10); RDW 17.3 % (11.5-14.5)
[2019-06-24 09:46] LABS: ANION GAP 11.9 mmol/L (8-16); CALCIUM 8.7 mg/dL (8.5-10.1); CARBON DIOXIDE 28.3 mmol/L (21.0-32.0); CREATININE - SERUM 1.8 mg/dL (0.6-1.3); POTASSIUM - SERUM 4.2 mmol/L (3.5-5.1)
[2019-06-24 10:37] VITALS: Ht 185.4 cm; Wt 155.1 kg
[2019-06-24 21:19] VITALS: BP 123/61
[2019-06-25 08:14] VITALS: BP 104/48
[2019-06-25 20:07] VITALS: BP 131/51
[2019-06-26 08:07] VITALS: BP 122/60
[2019-06-26 19:44] VITALS: BP 126/61
[2019-06-27 07:19] LABS: BASOPHILS 0.5 % (0-2); EOSINOPHILS 11.3 % (0-7); HEMATOCRIT 35.4 % (42.0-54.0); HEMOGLOBIN 11.4 g/dL (13.5-17.5); IMMATURE GRANULOCYTES 0.4 % (0-5); LYMPHOCYTES 20.8 % (15-50); MCH 31.5 pg (26.0-34.0); MCHC 32.2 g/dL (31.0-37.0); MCV 97.8 fL (80.0-100.0); MEAN PLATELET VOLUME 12.5 fL (7.4-10.4); MONOCYTES 8.1 % (2-11); NEUTROPHILS 58.9 % (40-80); PLATELET COUNT 146 10x3/uL (130-400); RBC 3.62 10x6/uL (4.20-6.10); RDW 17.3 % (11.5-14.5); WBC 7.7 10x3/uL (4.8-10.8)
[2019-06-27 07:20] LABS: ANION GAP 10.7 mmol/L (8-16); CALCIUM 8.6 mg/dL (8.5-10.1); CARBON DIOXIDE 27.5 mmol/L (21.0-32.0); CREATININE - SERUM 1.6 mg/dL (0.6-1.3); POTASSIUM - SERUM 4.2 mmol/L (3.5-5.1)
[2019-06-27 08:23] VITALS: BP 115/61
[2019-06-28 01:08] VITALS: BP 122/47
[2019-06-28 08:22] VITALS: BP 109/63
[2019-06-28 23:19] VITALS: BP 128/61
[2019-06-29 06:42] LABS: BASOPHILS 0.6 % (0-2); EOSINOPHILS 10.6 % (0-7); HEMOGLOBIN 10.7 g/dL (13.5-17.5); IMMATURE GRANULOCYTES 0.2 % (0-5); LYMPHOCYTES 24.3 % (15-50); MCH 31.3 pg (26.0-34.0); MCHC 32.4 g/dL (31.0-37.0); MCV 96.5 fL (80.0-100.0); MEAN PLATELET VOLUME 11.6 fL (7.4-10.4); MONOCYTES 7.9 % (2-11); NEUTROPHILS 56.4 % (40-80); PLATELET COUNT 135 10x3/uL (130-400); RBC 3.42 10x6/uL (4.20-6.10); RDW 17.2 % (11.5-14.5); WBC 6.6 10x3/uL (4.8-10.8)
[2019-06-29 07:04] LABS: ANION GAP 11.8 mmol/L (8-16); CALCIUM 8.4 mg/dL (8.5-10.1); CARBON DIOXIDE 27.1 mmol/L (21.0-32.0); CREATININE - SERUM 1.7 mg/dL (0.6-1.3); POTASSIUM - SERUM 3.9 mmol/L (3.5-5.1)
[2019-06-29 08:02] VITALS: BP 97/50
--- NOTE | 2019-06-29 08:19 | RHP ---
PATIENT: REED COX MEDICAL RECORD: [id number] ACCOUNT: [id number] LOCATION:[facility].1115 : 55 ADMISSION DATE: 06/23/19 REHABILITATION HISTORY AND PHYSICAL EXAMINATION POST ADMISSION PHYSICIAN EXAMINATION POST ADMISSION PHYSICAL EXAMINATION AND HISTORY AND PHYSICAL DATE OF ADMISSION: 06/23/2019 ADMITTING DIAGNOSIS: Toxic metabolic encephalopathy. HISTORY OF PRESENT ILLNESS: The patient is a 63-year-old morbidly obese gentleman, who has been in rehab before, who underwent a left radical nephrectomy on May 20 for a left renal mass that was 5.5 cm in the upper pole. He developed wound dehiscence and required emergency surgery and wound VAC placement. Recently, he was discharged home on June 17. He was a direct admit from outpatient with wound VAC change with acute mental status changes, rule out TIA versus CVA. He has had several falls at home, hitting his head and had some slurred speech. He has got a history of alcohol abuse, obstructive sleep apnea, chronic kidney disease, morbid obesity, ischemic cardiomyopathy, left renal mass, cardiac pacemaker. He has had a history of use of up to a fifth of whiskey daily in the past. He denied current tobacco or illicit drug use. He was followed by pulmonary. He had BiPAP during the daytime and continuously at night. He has had neb treatments with DuoNeb treatment for CHF with diuretics, empiric antibiotic therapy to cover pneumonia. His O2 has been titrated to keep his sat greater than 92% with inspiratory spirometry and flutter. He is being followed by nephrology for left nephrectomy care complicated by acute kidney injury and wound infection, now readmitted for severe debilitation, found to have another acute kidney injury. This admission, his creatinine was 3.1, it is now down to 1.9. He is off IV fluids per pulmonary. Tolerating diuretics well. He is on Lasix IV. Okay to continue with the help of pulmonary looking in on him. All the above listed comorbidities require 24-hour medical management of RN position. Barriers to discharge include self-care deficits, wound care management, extreme debility, need for continued medical management. Prior to this admission he lived with his , was moderately independent with ambulation, using a rolling walker. Moderately independent with ADLs. Currently, the patient is max assist with ambulation, mod-to-max assist for ADLs. He has done well on this rehab in the past and would like to do inpatient therapy and hopefully return back to his prior level of functioning. Comorbidities include acute respiratory failure, ischemic cardiomyopathy, macrocytic anemia, hyperlipidemia, coronary artery disease, peripheral vascular disease, morbid obesity, obstructive sleep apnea, acute kidney injury, diabetes, small pleural effusion, left lower lobe atelectasis, metabolic encephalopathy, hypotension, acute kidney injury/acute tubular necrosis status post left radical nephrectomy, CHF, CA, pacemaker placement, defibrillator, debility and falls, alcohol abuse, neuropathy, osteoarthritis, history of depression and anxiety. He has got a history of tobacco use in the past. Hypoalbuminemia and asbestos exposure. PAST MEDICAL HISTORY: Significant for neuropathy, diabetes, hypertension, CHF, CA, sick sinus syndrome, coronary artery disease, vascular disease, need for CPAP and BiPAP secondary to obstructive sleep apnea, cancer of his kidney, arthritis, depression, anxiety, and obesity. HISTORY AND PHYSICAL [id number] REED COX PAST SURGICAL HISTORY: Includes tonsillectomy, adenoidectomy, coronary artery bypass grafting. He has had a right femoral stent, right leg bypass, and nephrectomy. ALLERGIES: No known drug allergies. CURRENT MEDICATIONS: Include Floranex daily. He is on aspirin chewable 81 mg daily, hydrocodone 5/325 one tab every 6 hours p.r.n., Zoloft 25 mg daily, Protonix 40 mg daily, multivitamin 1 tab daily, Flonase nasal spray 2 sprays daily, Lovenox 40 mg daily. He is on Humalog low-resistant sliding scale with insulin. He is on Merrem 1 g every 12 hours, Lyrica 150 mg b.i.d., Singulair 10 mg at bedtime, doxycycline 100 mg b.i.d., Colace 100 mg b.i.d., Librium 10 mg t.i.d., atorvastatin 40 mg at bedtime, Tylenol 325 every 4 hours p.r.n. He is on electrolyte replacement protocol at this time. He is on a sugar replacement protocol also for hypoglycemia. HABITS: No current alcohol or tobacco use. FAMILY HISTORY: Noncontributory. SOCIAL HISTORY: The patient hopes to return back home and get back to his prior level of functioning. REVIEW OF SYSTEMS: GENERAL: Does complain of weakness and fatigue. HEENT: Denies cold, cough, or congestion. CARDIOVASCULAR: Denies chest pain. PHYSICAL EXAMINATION: VITAL SIGNS: Stable, afebrile. He is 6 feet 1, 343 pounds. GENERAL: A morbidly obese gentleman, in no acute distress upon exam. HEENT: Normocephalic, atraumatic. Mucosa moist. NECK: Supple, with no lymphadenopathy. LUNGS: Clear in the upper hernández with decreased breath sounds in the bases. HEART: Regular rate and rhythm. No murmurs, rubs or gallops. ABDOMEN: Soft, benign, and nondistended. Positive bowel sounds times 4. Surgical scar looks pretty good. NEUROLOGIC: He has got 2-3/5 muscular strength in his proximal muscles of his clots. LABORATORY DATA: Admit UA did show 2+ blood. His white count and his chemistries are pending. ASSESSMENT: This is a 63-year-old gentleman admitted to the rehab with a working diagnosis of acute toxic metabolic encephalopathy. The patient has potential to make improvement. We will institute the following multidisciplinary therapies including, but not limited to, physical, occupational, respiratory, speech, nutritional services, prosthetics, and orthotics. Given his complex medical condition and risks for more complications, rehabilitation services cannot be provided at a lower level of care such as a skilled nurse facility. PLAN: 1. Admit to [facility] for an inpatient therapy to include the following disciplines; HISTORY AND PHYSICAL [id number] REED COX A. Physical therapy to improve gait, all transfer skills, and bed mobility to modified independent level. B. Occupational therapy to modified independent level. C. Case management to assist with discharge planning and placement options. D. Nutrition to assist with nutritional needs. E. Rehabilitation nursing to assist in monitoring the patient's underlying medical conditions and to assist with any type of bowel or bladder management. 2. The patient's current medications and medical care will be continued. 3. The patient will be placed on standard fall precautions. 4. The patient's estimated length of stay is approximately 7-10 days. 5. We will discuss the patient during care team staff meeting this week. TRANSINT:[id number] Voice Confirmation ID: [id number] DOCUMENT ID: [id number] VAUGHN notes whether there has been none or any medical/functional change since admission: - No change since pre-admission screen. VAUGHN attests patient continues to be appropriate for IRF: - Continues to be appropriate. LETA MARCOS MD at 0819 CC: [id number] DICTATION DATE: 06/24/19 0853 ALL TERRAIN VEHICLE RACER: 06/24/19 0933 ADM IN [facility] [address] [place] [address]
[2019-06-29] MEDS ORDERED: HYDROCODON-ACE1 EAC7 PO (08:42)
[2019-06-30] MEDS ORDERED: LYRICA25 MG (12:14)
[2019-06-30] MEDS ORDERED: BUTALB-APAP-CA1 EACH (12:15)
[2019-06-30] MEDS ORDERED: LIPITOR40 MG (12:15)
--- NOTE | 2019-08-02 10:09 | DS ---
PATIENT:REED COX :55 MEDICAL RECORD: [id number] DISCHARGE SUMMARY ADMISSION DATE: 06/23/19 DISCHARGE DATE: 06/29/19 This is a discharge dated 06/29/2019 from inpatient rehabilitation. PRIMARY DIAGNOSIS: Decreased functional ability and ability to provide activities of daily living secondary to toxic metabolic encephalopathy. SECONDARY DIAGNOSES: 1. Status post left nephrectomy with wound dehiscence, on wound VAC. 2. Morbid obesity. 3. ETOH abuse. 4. Obstructive sleep apnea, on BiPAP. 5. Chronic kidney disease/acute kidney injury. 5. Ischemic cardiomyopathy. 6. Congestive heart failure. 7. Coronary artery disease. 8. Hyperlipidemia. 9. Diabetes. 10. Osteoarthritis. 11. Depression/anxiety. 12. Neuropathy. 13. Acute hypoxic respiratory failure. 14. Peripheral vascular disease. 15. Anemia. HOSPITAL COURSE: Full H&P is located elsewhere on the chart on this 63-year-old male who was admitted to inpatient rehab for physical therapy and occupational therapy to improve gait, transfer skills, bed mobility, and activities of daily living to a modified independent level. He was evaluated by PT, OT and ST and their plans of care were followed. He required fci care for observation and assessment and medication administration as well as wound care and monitoring of surgical incision with wound VAC. Electrolytes were managed by protocol. Fingerstick blood sugars were monitored throughout his hospital stay with appropriate adjustment in medications as needed. He had supplemental oxygen as needed to keep sats greater than 90%, was on doxycycline for antibiotic coverage. He was cooperative with therapies, progressing towards goals. Case management was involved for discharge planning. He was considered stable for discharge on 06/29/2019, having met all of his PT and OT goals and made good progress with speech therapy. It was recommended for additional therapy upon discharge. DISCHARGE MEDICATIONS: As per discharge medication reconciliation. DISCHARGE DISPOSITION: The patient is discharged home. He will continue his current diet and level of activity. He will have [facility] for continued nursing, PT and OT. He will have a wound VAC management per [facility] and will follow up with primary care and specialist as directed. At least 30 minutes was spent in this discharge activity. DISCHARGE SUMMARY REPORT [id number] REED COX TRANSINT:[id number] Voice Confirmation ID: [id number] DOCUMENT ID: [id number] Dictated By: MO CHINO I have interviewed/examined the above patient and agree with these documented findings. LETA MARCOS MD at 1011 at 1009 CC: [id number] DICTATION DATE: 07/31/19 172 IP TECHNOLOGY TRANSACTIONS ATTORNEY: 08/01/19 0402 DIS IN 06/29/19 [address] [place] [address]
== END 2019-06-29 14:56 | disposition home health service (06) | DRG 91 ==
LOC: D.REHAB 17:39
PROVIDERS: ADMIT Emergency Medicine; ATTEND Emergency Medicine
DX: G92 Toxic encephalopathy (principal); J96.00 Acute respiratory failure, unspecified whether with hypoxia or hypercapnia; N17.0 Acute kidney failure with tubular necrosis; J90 Pleural effusion, not elsewhere classified; J98.11 Atelectasis; I11.0 Hypertensive heart disease with heart failure; I50.9 Heart failure, unspecified; I25.5 Ischemic cardiomyopathy; D53.9 Nutritional anemia, unspecified; E78.5 Hyperlipidemia, unspecified; I25.10 Atherosclerotic heart disease of native coronary artery without angina pectoris; I73.9 Peripheral vascular disease, unspecified; E66.01 Morbid (severe) obesity due to excess calories; G47.33 Obstructive sleep apnea (adult) (pediatric); E11.9 Type 2 diabetes mellitus without complications; I95.9 Hypotension, unspecified; Z95.0 Presence of cardiac pacemaker; R53.81 Other malaise; F10.10 Alcohol abuse, uncomplicated; M19.90 Unspecified osteoarthritis, unspecified site; J44.9 Chronic obstructive pulmonary disease, unspecified; K21.9 Gastro-esophageal reflux disease without esophagitis

== ENCOUNTER 2019-06-30 12:06 | Inpatient (IN) | payer MEDICARE ==
[~2019-06-30] VITALS: Ht 185.4 cm; Wt 151.5 kg
[2019-06-30] MEDS ORDERED: LYRICA25 MG (12:14)
[2019-06-30] MEDS ORDERED: BUTALB-APAP-CA1 EACH (12:15)
[2019-06-30] MEDS ORDERED: LIPITOR40 MG (12:15)
[2019-06-30 13:08] LABS: BASOPHILS 0.5 % (0-2); EOSINOPHILS 4.1 % (0-7); HEMATOCRIT 34.7 % (42.0-54.0); HEMOGLOBIN 11.4 g/dL (13.5-17.5); IMMATURE GRANULOCYTES 0.3 % (0-5); MCH 31.7 pg (26.0-34.0); MCHC 32.9 g/dL (31.0-37.0); MCV 96.4 fL (80.0-100.0); MEAN PLATELET VOLUME 12.1 fL (7.4-10.4); MONOCYTES 5.3 % (2-11); NEUTROPHILS 77.8 % (40-80); RDW 16.9 % (11.5-14.5)
[2019-06-30 13:11] LABS: ALBUMIN 2.6 g/dL (3.4-5.0); ALKALINE PHOSPHATASE 129 U/L (46-116); ALT (SGPT) 41 U/L (10-68); BILIRUBIN - TOTAL 0.53 mg/dL (0.2-1.3); CALC OSMOLALITY 284 mosm/kg (275-300); CALCIUM 8.8 mg/dL (8.5-10.1); CARBON DIOXIDE 26.8 mmol/L (21.0-32.0); CHLORIDE - SERUM 109 mmol/L (98-107); CREATININE - SERUM 1.8 mg/dL (0.6-1.3); GLUCOSE 71 mg/dL (74-106); PLATELET COUNT 171 10x3/uL (130-400); POTASSIUM - SERUM 3.9 mmol/L (3.5-5.1); PROTEIN - SERUM 6.3 g/dL (6.4-8.2); SODIUM 143 mmol/L (136-145); UREA NITROGEN 17 mg/dL (7-18); WBC 10.8 10x3/uL (4.8-10.8); eGFR NON AFRICAN AMERICAN 41 mL/min (90-120)
[2019-06-30 13:12] LABS: INR 1.18 (0.85-1.17); PROTIME 14.5 SECONDS (11.6-15.0)
[2019-06-30 13:22] LABS: CKMB 0.9 U/L (0.0-3.6); CREATINE KINASE 224 UL (21-232); MAGNESIUM - SERUM 1.9 mg/dL (1.8-2.4); THYROID STIMULATING HORMONE 3.82 uIU/mL (0.36-3.74)
[2019-06-30 13:23] LABS: TROPONIN-I < 0.017 ng/mL (0.000-0.060)
[2019-06-30 13:30] VITALS: BP 117/55
[2019-06-30 14:00] VITALS: BP 123/61
[2019-06-30 14:30] VITALS: BP 113/59
[2019-06-30 21:43] VITALS: BP 108/53
[2019-06-30 22:43] VITALS: BP 108/53; BMI 44.1
[2019-07-01 01:28] VITALS: BP 104/54
[2019-07-01 04:59] VITALS: BP 118/46
[2019-07-01 07:26] LABS: BASOPHILS 0 % (0-2); EOSINOPHILS 18.5 % (0-7); HEMATOCRIT 36.3 % (42.0-54.0); HEMOGLOBIN 11.7 g/dL (13.5-17.5); IMMATURE GRANULOCYTES 0.1 % (0-5); LYMPHOCYTES 5.9 % (15-50); MCH 31.2 pg (26.0-34.0); MCHC 32.2 g/dL (31.0-37.0); MCV 96.8 fL (80.0-100.0); MEAN PLATELET VOLUME 11.9 fL (7.4-10.4); NEUTROPHILS 72.5 % (40-80); PLATELET COUNT 177 10x3/uL (130-400); RBC 3.75 10x6/uL (4.20-6.10); RDW 17.4 % (11.5-14.5); WBC 8.3 10x3/uL (4.8-10.8)
[2019-07-01 07:56] LABS: ALBUMIN 2.3 g/dL (3.4-5.0); ANION GAP 13.4 mmol/L (8-16); BILIRUBIN - TOTAL 0.71 mg/dL (0.2-1.3); CALCIUM 8.5 mg/dL (8.5-10.1); CARBON DIOXIDE 25.6 mmol/L (21.0-32.0); CREATININE - SERUM 1.6 mg/dL (0.6-1.3); MAGNESIUM - SERUM 2.1 mg/dL (1.8-2.4)
[2019-07-01 09:01] VITALS: BP 115/53
[2019-07-01 12:28] VITALS: Ht 185.4 cm; Wt 151.5 kg
[2019-07-01 13:26] VITALS: BP 136/70
[2019-07-01 20:40] VITALS: BP 90/43
[2019-07-02 00:19] VITALS: BP 110/50
[2019-07-02 04:50] VITALS: BP 103/45
[2019-07-02 06:29] LABS: BASOPHILS 0.1 % (0-2); EOSINOPHILS 25.2 % (0-7); HEMATOCRIT 31.8 % (42.0-54.0); HEMOGLOBIN 10.5 g/dL (13.5-17.5); IMMATURE GRANULOCYTES 0.3 % (0-5); LYMPHOCYTES 9.3 % (15-50); MCH 31.3 pg (26.0-34.0); MCV 94.9 fL (80.0-100.0); MEAN PLATELET VOLUME 11.6 fL (7.4-10.4); MONOCYTES 4.2 % (2-11); NEUTROPHILS 60.9 % (40-80); PLATELET COUNT 183 10x3/uL (130-400); RBC 3.35 10x6/uL (4.20-6.10)
[2019-07-02 06:30] LABS: WBC 11.5 10x3/uL (4.8-10.8)
[2019-07-02 07:05] LABS: ANION GAP 12.6 mmol/L (8-16); BILIRUBIN - TOTAL 1.04 mg/dL (0.2-1.3); CALCIUM 7.6 mg/dL (8.5-10.1); CARBON DIOXIDE 25.7 mmol/L (21.0-32.0); MAGNESIUM - SERUM 1.8 mg/dL (1.8-2.4); PROTEIN - SERUM 5.4 g/dL (6.4-8.2); VANCOMYCIN - TROUGH 24.6 ug/mL (10.0-20.0)
[2019-07-02 07:06] LABS: POTASSIUM - SERUM 3.3 mmol/L (3.5-5.1)
[2019-07-02 08:58] VITALS: BP 111/54
[2019-07-02 12:35] VITALS: BP 119/55
[2019-07-02 17:36] VITALS: BP 106/54
[2019-07-02 20:21] VITALS: BP 96/51
[2019-07-02 21:52] LABS: APPEARANCE CLEAR (CLEAR); BILIRUBIN NEGATIVE (NEGATIVE); COLOR YELLOW (YELLOW); GLUCOSE NEGATIVE (NEGATIVE); KETONE NEGATIVE (NEGATIVE); NITRITE NEGATIVE (NEGATIVE); PROTEIN NEGATIVE (NEGATIVE); RED CELLS - URINE 0-5 /hpf (0-5); SPECIFIC GRAVITY 1.015 (1.005-1.020); UROBILINOGEN NORMAL (NORMAL); WHITE CELLS - URINE NSEEN /hpf (0-5)
[2019-07-02 21:56] LABS: UDS - AMPHET NEGATIVE QUAL (NEGATIVE); UDS - BARB NEGATIVE QUAL (NEGATIVE); UDS - BENZO POSITIVE QUAL (NEGATIVE); UDS - COCAINE NEGATIVE QUAL (NEGATIVE); UDS - OPIATE NEGATIVE QUAL (NEGATIVE); UDS - PCP NEGATIVE QUAL (NEGATIVE); UDS - THC NEGATIVE QUAL (NEGATIVE)
[2019-07-03 00:32] VITALS: BP 100/46
[2019-07-03 04:37] VITALS: BP 101/55
[2019-07-03 05:23] LABS: BASOPHILS 0.2 % (0-2); EOSINOPHILS 30.1 % (0-7); HEMATOCRIT 31.9 % (42.0-54.0); HEMOGLOBIN 10.5 g/dL (13.5-17.5); IMMATURE GRANULOCYTES 0.3 % (0-5); LYMPHOCYTES 14.7 % (15-50); MCH 31.3 pg (26.0-34.0); MCHC 32.9 g/dL (31.0-37.0); MCV 95.2 fL (80.0-100.0); MEAN PLATELET VOLUME 12.1 fL (7.4-10.4); MONOCYTES 5.5 % (2-11); NEUTROPHILS 49.2 % (40-80); PLATELET COUNT 198 10x3/uL (130-400); RBC 3.35 10x6/uL (4.20-6.10); RDW 17.1 % (11.5-14.5); WBC 10.3 10x3/uL (4.8-10.8)
[2019-07-03 05:50] LABS: ALBUMIN 2.1 g/dL (3.4-5.0); ANION GAP 11.9 mmol/L (8-16); BILIRUBIN - TOTAL 0.49 mg/dL (0.2-1.3); CARBON DIOXIDE 26.4 mmol/L (21.0-32.0); CREATININE - SERUM 1.9 mg/dL (0.6-1.3); MAGNESIUM - SERUM 1.8 mg/dL (1.8-2.4); POTASSIUM - SERUM 3.3 mmol/L (3.5-5.1); PROTEIN - SERUM 5.7 g/dL (6.4-8.2)
[2019-07-03 07:28] VITALS: BP 100/51
[2019-07-03 12:52] VITALS: BP 107/56
[2019-07-03 18:24] VITALS: BP 100/53
[2019-07-03 20:00] VITALS: BP 112/56
[2019-07-04] VITALS: BP 115/56
[2019-07-04 04:00] VITALS: BP 105/52
[2019-07-04 05:38] LABS: BASOPHILS 0.4 % (0-2); EOSINOPHILS 33.2 % (0-7); HEMATOCRIT 31.5 % (42.0-54.0); HEMOGLOBIN 10.3 g/dL (13.5-17.5); IMMATURE GRANULOCYTES 0.1 % (0-5); LYMPHOCYTES 16.6 % (15-50); MCH 30.9 pg (26.0-34.0); MCHC 32.7 g/dL (31.0-37.0); MCV 94.6 fL (80.0-100.0); MEAN PLATELET VOLUME 11.8 fL (7.4-10.4); MONOCYTES 6.9 % (2-11); NEUTROPHILS 42.8 % (40-80); PLATELET COUNT 205 10x3/uL (130-400); RBC 3.33 10x6/uL (4.20-6.10); WBC 9.4 10x3/uL (4.8-10.8)
[2019-07-04 06:06] LABS: ALBUMIN 2.1 g/dL (3.4-5.0); ANION GAP 11.8 mmol/L (8-16); BILIRUBIN - TOTAL 0.47 mg/dL (0.2-1.3); CALCIUM 8.1 mg/dL (8.5-10.1); CARBON DIOXIDE 26.8 mmol/L (21.0-32.0); CREATININE - SERUM 1.9 mg/dL (0.6-1.3); MAGNESIUM - SERUM 1.8 mg/dL (1.8-2.4); POTASSIUM - SERUM 3.6 mmol/L (3.5-5.1); PROTEIN - SERUM 5.7 g/dL (6.4-8.2)
[2019-07-04 09:02] VITALS: BP 110/55
[2019-07-04 13:12] VITALS: BP 120/74
--- NOTE | 2019-07-04 17:20 | MORECARE ---
CASE MANAGEMENT DISCHARGE SUMMARY PATIENT: REED COX PRATIMA UNIT: [id number] ADM DATE: 06/30/19 AGE: 63 : 55 SEX: M ROOM/BED: D.2237 AUTHOR: SIOBHAN ABREU PHYSICIAN: REFERRING PHYSICIAN: ONI LOAIZA MD DATE OF SERVICE: 07/04/19 Discharge Plan Patient Name: REED COX Facility: [facility]:[place] : 1955 Planned Disposition: [facility] Facility Anticipated Discharge Date: Discharge Date: Expected LOS: Initial Reviewer: [email or web address] Initial Review Date: 07/04/2019 Generated: 07/04/19 6:19 pm External Providers External Provider: [facility] Next Contact Date: Service Request Date: Service Type: Resolution: Reviewer: Comments: Patient Name: REED COX Page 60178 at 1720 All edits/amendments must be made on the electronic document DICTATION DATE: 07/04/191718 STATION COOK: JAKE 07/04/191718 RPT#: [id number] DC DATE: STATUS: ADM IN [facility] [address] [place] [address] END OF REPORT
--- NOTE | 2019-07-04 17:28 | MORECARE ---
CASE MANAGEMENT DISCHARGE SUMMARY PATIENT: REED COX UNIT: [id number] ADM DATE: 06/30/19 AGE: 63 : 55 SEX: M ROOM/BED: D.2237 AUTHOR: LOISDOC PHYSICIAN: REFERRING PHYSICIAN: ONI LOAIZA MD DATE OF SERVICE: 07/04/19 Discharge Plan Patient Name: REED COX Facility: [facility]:[place] : 1955 Planned Disposition: [facility] Facility Anticipated Discharge Date: Discharge Date: Expected LOS: Initial Reviewer: [id number] Initial Review Date: 07/04/2019 Generated: 07/04/19 6:28 pm Comments DCP- Discharge Planning Updated by [email or web address]: Apurva Jurado on 07/04/19 4:[address] Patient Name: REED COX Admission Status: ER Accout number: [id number] Admission Date: 06-30-2019 : 1955 Admission Diagnosis: Attending: FADIA, Current LOS: 4 Anticipated DC Date: Planned Disposition: [facility] Facility Primary Insurance: [employer] MEDICARE ADV Discharge Planning Comments: CM met with patient to discuss discharge planning, he is alone in the room. He would like to go to inpatient rehab again if possible prior to going home. He states he feels like he is too weak to go home. I spoke with Randi in inpatient rehab and she states he just left there one day ago and had completed the program. I spoke with him about a skilled facility and he states it is ok to speak with his about it. I called his and she would like him to go to [facility]. She states that she thinks he is too weak to come home. I did inform her that he walked 250 feet and that he may be too high functioning for skilled and he would need preauthorization from insurance. She states she would like to see if we can get authorization. I called Jennifer and spoke to her at [facility] and clinical faxed. CM will continue to follow and assist with discharge planning/needs. Shear Operator: Apurva Jurado DCPIA - Discharge Planning Initial Assessment Updated by [id number]: Apurva Jurado on 07/04/19 5:20 pm * Is the patient Alert and Oriented? Yes * How many steps to enter\exit or inside your home? Ramp/0 * PCP Dr. Castel[facility] * Pharmacy [facility] * Preadmission Environment Home with Family * ADLs Independent * Equipment Bedside Commode Cane CPAP Nebulizer Other Oxygen Wound Vac * Other Equipment Pulse oximeter Portable oxygen * List name and contact numbers for known caregivers / representatives who currently or will assist patient after discharge: Olga gomez - [phone] * Verbal permission to speak to the caregivers and representatives has been obtained from the patient. Yes * Community resources currently utilized Home Health * Please name any agencies selected above. [facility] * Additional services required to return to the preadmission environment? No * Can the patient safely return to the preadmission environment? Yes * Has this patient been hospitalized within the prior 30 days at any hospital? Yes Coverage Notice Reviewer: [id number] - Apurva Jurado Notice Issued Date-Time: 07/04/2019 17:27 Notice Type: Patient Choice Letter Notice Delivered To: Patient Relationship to Patient: Self Ticket Sales Agent Name: Delivery Method: HAND - Hand Delivered Nathaly Days: Prior Verbal Notification: Recipient Understood Notice: Yes Recipient Signature: Yes Med Rec Note Co-signed by Attending: Coverage Notice Comment: FITO for [facility] and [facility] Last DP export: 07/04/19 4:20 p Patient Name: REED COX Page 82046 at 1728 All edits/amendments must be made on the electronic document DICTATION DATE: 07/04/191727 HIM CODER: JAKE 07/04/191727 RPT#: [id number] DC DATE: STATUS: ADM IN [facility] [address] [place] [address] END OF REPORT
[2019-07-04 18:02] VITALS: BP 126/66
[2019-07-04 20:00] VITALS: BP 103/52
[2019-07-05 04:00] VITALS: BP 103/54
[2019-07-05 07:11] LABS: HEMATOCRIT 32.3 % (42.0-54.0); HEMOGLOBIN 10.7 g/dL (13.5-17.5); MCH 31.4 pg (26.0-34.0); MCHC 33.1 g/dL (31.0-37.0); MCV 94.7 fL (80.0-100.0); MEAN PLATELET VOLUME 12.2 fL (7.4-10.4); PLATELET COUNT 229 10x3/uL (130-400); RBC 3.41 10x6/uL (4.20-6.10); RDW 17.1 % (11.5-14.5); WBC 8.9 10x3/uL (4.8-10.8)
[2019-07-05 07:27] LABS: ALBUMIN 2.2 g/dL (3.4-5.0); BILIRUBIN - TOTAL 0.49 mg/dL (0.2-1.3); CALCIUM 8.3 mg/dL (8.5-10.1); CARBON DIOXIDE 26.6 mmol/L (21.0-32.0); CREATININE - SERUM 1.9 mg/dL (0.6-1.3); MAGNESIUM - SERUM 1.8 mg/dL (1.8-2.4); POTASSIUM - SERUM 3.6 mmol/L (3.5-5.1); PROTEIN - SERUM 5.9 g/dL (6.4-8.2)
[2019-07-05 09:08] VITALS: BP 131/68
[2019-07-05 09:56] LABS: EOSINOPHILS 21 % (0-7); LYMPHOCYTES 15 % (15-50); MONOCYTES 8 % (2-11); NEUTROPHILS 52 % (40-80); PLATELET ESTIMATE NORMAL
[2019-07-05 09:57] LABS: ANISOCYTOSIS OCC; ROULEAUX OCC; TARGET CELLS 1+
[2019-07-05 12:17] VITALS: BP 119/64
[2019-07-05 20:00] VITALS: BP 110/46
[2019-07-06] VITALS: BP 96/60
[2019-07-06 04:00] VITALS: BP 122/68
[2019-07-06 06:23] LABS: BASOPHILS 0.7 % (0-2); EOSINOPHILS 26.1 % (0-7); HEMATOCRIT 33.9 % (42.0-54.0); HEMOGLOBIN 11.1 g/dL (13.5-17.5); IMMATURE GRANULOCYTES 0.2 % (0-5); MCHC 32.7 g/dL (31.0-37.0); MCV 94.7 fL (80.0-100.0); MEAN PLATELET VOLUME 12.1 fL (7.4-10.4); MONOCYTES 7.6 % (2-11); NEUTROPHILS 44.4 % (40-80); PLATELET COUNT 249 10x3/uL (130-400); RBC 3.58 10x6/uL (4.20-6.10); WBC 8.6 10x3/uL (4.8-10.8)
[2019-07-06 06:48] LABS: ANION GAP 11.8 mmol/L (8-16); CALCIUM 8.7 mg/dL (8.5-10.1); CARBON DIOXIDE 27.6 mmol/L (21.0-32.0); POTASSIUM - SERUM 3.4 mmol/L (3.5-5.1)
[2019-07-06 08:48] VITALS: BP 114/53
[2019-07-06 11:43] VITALS: BP 133/68
--- NOTE | 2019-07-06 13:07 | MORECARE ---
CASE MANAGEMENT DISCHARGE SUMMARY PATIENT: REED COX UNIT: [id number] ADM DATE: 06/30/19 AGE: 63 : 55 SEX: M ROOM/BED: D.2237 AUTHOR: LOIS,DOC PHYSICIAN: REFERRING PHYSICIAN: ONI LOAIZA MD DATE OF SERVICE: 07/06/19 Discharge Plan Patient Name: REED COX Facility: [facility]:[place] : 1955 Planned Disposition: Long Term Facility Anticipated Discharge Date: Discharge Date: Expected LOS: Initial Reviewer: [email or web address] Initial Review Date: 07/04/2019 Generated: 07/06/19 2:06 pm Comments DCP- Discharge Planning Updated by [id number]: Apurva Jurado on 07/06/19 12:[address] Spoke with Julia at [facility]. I have faxed OT note and wound vac note per her request. She is going to send clinical to insurance for auth. I spoke with patient's and informed her we are still awaiting authorization from insurance for SNF. CM will continue to follow and assist with discharge planning/needs. DCP- Discharge Planning Updated by [id number]: Apurva Santamariacarlos on 07/04/19 4:[address] Patient Name: REED COX Admission Status: ER Accout number: [id number] Admission Date: 06-30-2019 : 1955 Admission Diagnosis: Attending: FADIA, Current LOS: 4 Anticipated DC Date: Planned Disposition: Long Term Facility Primary Insurance: [employer] ADV Discharge Planning Comments: CM met with patient to discuss discharge planning, he is alone in the room. He would like to go to inpatient rehab again if possible prior to going home. He states he feels like he is too weak to go home. I spoke with Randi in inpatient rehab and she states he just left there one day ago and had completed the program. I spoke with him about a skilled facility and he states it is ok to speak with his about it. I called his and she would like him to go to [facility]. She states that she thinks he is too weak to come home. I did inform her that he walked 250 feet and that he may be too high functioning for skilled and he would need preauthorization from insurance. She states she would like to see if we can get authorization. I called Jennifer and spoke to her at [facility] and clinical faxed. CM will continue to follow and assist with discharge planning/needs. Agricultural Equipment Sales Engineer: Apurva Jurado DCPIA - Discharge Planning Initial Assessment Updated by [email or web address]: Apurva Jurado on 07/04/19 5:20 pm * Is the patient Alert and Oriented? Yes * How many steps to enter\exit or inside your home? Ramp/0 * PCP Dr. Castelan * Pharmacy [address] * Preadmission Environment Home with Family * ADLs Independent * Equipment Bedside Commode Cane CPAP Nebulizer Other Oxygen Wound Vac * Other Equipment Pulse oximeter Portable oxygen * List name and contact numbers for known caregivers / representatives who currently or will assist patient after discharge: Olga gomez - [phone] * Verbal permission to speak to the caregivers and representatives has been obtained from the patient. Yes * Community resources currently utilized Home Health * Please name any agencies selected above. [facility] * Additional services required to return to the preadmission environment? No * Can the patient safely return to the preadmission environment? Yes * Has this patient been hospitalized within the prior 30 days at any hospital? Yes Coverage Notice Reviewer: [id number] - Apurva Jurado Notice Issued Date-Time: 07/04/2019 17:27 Notice Type: Patient Choice Letter Notice Delivered To: Patient Relationship to Patient: Self Aircraft Structural Repairer Name: Delivery Method: HAND - Hand Delivered Nathaly Days: Prior Verbal Notification: Recipient Understood Notice: Yes Recipient Signature: Yes Med Rec Note Co-signed by Attending: Coverage Notice Comment: FITO for [facility] and [employer] [facility] Last DP export: 07/04/19 4:28 p Patient Name: REED COX Page [id number] at 1307 All edits/amendments must be made on the electronic document DICTATION DATE: 07/06/19 1306 BRANCH OPERATION EVALUATION MANAGER: JAKE 07/06/19 1306 RPT#: [id number] DC DATE: STATUS: ADM IN [facility] [address] [facility] [place] [address] END OF REPORT
[2019-07-06 16:34] VITALS: BP 117/57
--- NOTE | 2019-07-06 16:47 | MORECARE ---
CASE MANAGEMENT DISCHARGE SUMMARY PATIENT: REED COX UNIT: [id number] ADM DATE: 06/30/19 AGE: 63 : 55 SEX: M ROOM/BED: D.2237 AUTHOR: LOIS,DOC PHYSICIAN: REFERRING PHYSICIAN: ONI LOAIZA MD DATE OF SERVICE: 07/06/19 Discharge Plan Patient Name: REED COX Facility: [facility]:[place] : 1955 Planned Disposition: Chcf Facility Anticipated Discharge Date: Discharge Date: Expected LOS: Initial Reviewer: [id number] Initial Review Date: 07/04/2019 Generated: 07/06/19 5:46 pm Comments DCP- Discharge Planning Updated by [email or web address]: Apurva Santamariacarlos on 07/06/19 3:[address] I faxed additional OT note, wound note and [facility] progress [facility]. CM will continue to follow and assist with discharge planning/needs. DCP- Discharge Planning Updated by [id number]: Apurva Jurado on 07/06/19 12:[address] Spoke with Julia at [facility]. I have faxed OT note and wound vac note per her request. She is going to send clinical to insurance for auth. I spoke with patient's and informed her we are still awaiting authorization from insurance for SNF. CM will continue to follow and assist with discharge planning/needs. DCP- Discharge Planning Updated by [id number]: Apurva Jurado on 07/04/19 4:[address] Patient Name: REED COX Admission Status: ER Accout number: [id number] Admission Date: 06-30-2019 : 1955 Admission Diagnosis: Attending: FADIA, Current LOS: 4 Anticipated DC Date: Planned Disposition: Chcf Facility Primary Insurance: [employer] ADV Discharge Planning Comments: CM met with patient to discuss discharge planning, he is alone in the room. He would like to go to inpatient rehab again if possible prior to going home. He states he feels like he is too weak to go home. I spoke with Randi in inpatient rehab and she states he just left there one day ago and had completed the program. I spoke with him about a skilled facility and he states it is ok to speak with his about it. I called his and she would like him to go to [facility] and [facility]. She states that she thinks he is too weak to come home. I did inform her that he walked 250 feet and that he may be too high functioning for skilled and he would need preauthorization from insurance. She states she would like to see if we can get authorization. I called Jennifer and spoke to her at [facility] and clinical faxed. CM will continue to follow and assist with discharge planning/needs. Gift Basket Packer: Apurva Jurado DCPIA - Discharge Planning Initial Assessment Updated by [id number]: Apurva Jurado on 07/04/19 5:20 pm * Is the patient Alert and Oriented? Yes * How many steps to enter\exit or inside your home? Ramp/0 * PCP Dr. Castelan * Pharmacy [facility] * Preadmission Environment Home with Family * ADLs Independent * Equipment Bedside Commode Cane CPAP Nebulizer Other Oxygen Wound Vac * Other Equipment Pulse oximeter Portable oxygen * List name and contact numbers for known caregivers / representatives who currently or will assist patient after discharge: Olga gomez - [phone] * Verbal permission to speak to the caregivers and representatives has been obtained from the patient. Yes * Community resources currently utilized Home Health * Please name any agencies selected above. [facility] * Additional services required to return to the preadmission environment? No * Can the patient safely return to the preadmission environment? Yes * Has this patient been hospitalized within the prior 30 days at any hospital? Yes Coverage Notice Reviewer: [id number] - Apurva Jurado Notice Issued Date-Time: 07/04/2019 17:27 Notice Type: Patient Choice Letter Notice Delivered To: Patient Relationship to Patient: Self Document Management Analyst Name: Delivery Method: HAND - Hand Delivered Nathaly Days: Prior Verbal Notification: Recipient Understood Notice: Yes Recipient Signature: Yes Med Rec Note Co-signed by Attending: Coverage Notice Comment: FITO for [facility] and [facility] Last DP export: 07/06/19 12:07 p Patient Name: REED COX Page [id number] at 1647 All edits/amendments must be made on the electronic document DICTATION DATE: 07/06/191645 MOWING MACHINE OPERATOR: JAKE 07/06/191645 RPT#: [id number] DC DATE: STATUS: ADM IN [facility] [address] [place] [address] END OF REPORT
[2019-07-06 20:00] VITALS: BP 126/69
[2019-07-07 04:00] VITALS: BP 126/64
[2019-07-07 07:06] LABS: BASOPHILS 0.9 % (0-2); EOSINOPHILS 18.4 % (0-7); HEMATOCRIT 34.9 % (42.0-54.0); HEMOGLOBIN 11.4 g/dL (13.5-17.5); IMMATURE GRANULOCYTES 0.4 % (0-5); LYMPHOCYTES 24.1 % (15-50); MCH 31.1 pg (26.0-34.0); MCHC 32.7 g/dL (31.0-37.0); MCV 95.1 fL (80.0-100.0); MEAN PLATELET VOLUME 11.8 fL (7.4-10.4); MONOCYTES 9.1 % (2-11); NEUTROPHILS 47.1 % (40-80); PLATELET COUNT 232 10x3/uL (130-400); RBC 3.67 10x6/uL (4.20-6.10); RDW 17.2 % (11.5-14.5)
[2019-07-07 09:39] VITALS: BP 125/65
[2019-07-07 09:40] LABS: ANION GAP 11.5 mmol/L (8-16); CALCIUM 8.5 mg/dL (8.5-10.1); CREATININE - SERUM 1.9 mg/dL (0.6-1.3); POTASSIUM - SERUM 3.5 mmol/L (3.5-5.1); VANCOMYCIN - RANDOM 11.3 ug/mL (10.0-20.0)
[2019-07-07 11:56] VITALS: BP 122/59
[2019-07-07 15:45] VITALS: BP 119/59
[2019-07-07 20:00] VITALS: BP 100/70
[2019-07-08 04:00] VITALS: BP 125/64
[2019-07-08 06:33] LABS: EOSINOPHILS 10.8 % (0-7); HEMATOCRIT 34.3 % (42.0-54.0); HEMOGLOBIN 11.5 g/dL (13.5-17.5); IMMATURE GRANULOCYTES 0.3 % (0-5); LYMPHOCYTES 25.1 % (15-50); MCH 31.8 pg (26.0-34.0); MCHC 33.5 g/dL (31.0-37.0); MCV 94.8 fL (80.0-100.0); MEAN PLATELET VOLUME 11.4 fL (7.4-10.4); MONOCYTES 9.7 % (2-11); NEUTROPHILS 53.1 % (40-80); PLATELET COUNT 236 10x3/uL (130-400); RBC 3.62 10x6/uL (4.20-6.10); RDW 17.1 % (11.5-14.5); WBC 6.9 10x3/uL (4.8-10.8)
[2019-07-08 06:56] LABS: ANION GAP 13.4 mmol/L (8-16); CALCIUM 8.4 mg/dL (8.5-10.1); CARBON DIOXIDE 27.7 mmol/L (21.0-32.0); CREATININE - SERUM 1.9 mg/dL (0.6-1.3); POTASSIUM - SERUM 3.1 mmol/L (3.5-5.1); VANCOMYCIN - RANDOM 8.9 ug/mL (10.0-20.0)
[2019-07-08 08:21] VITALS: BP 132/62
[2019-07-08 11:38] VITALS: BP 126/60
--- NOTE | 2019-07-08 13:03 | MORECARE ---
CASE MANAGEMENT DISCHARGE SUMMARY PATIENT: REED COX UNIT: [id number] ADM DATE: 06/30/19 AGE: 63 : 55 SEX: M ROOM/BED: D.2237 AUTHOR: LOIS,DOC PHYSICIAN: REFERRING PHYSICIAN: ONI LOAIZA MD DATE OF SERVICE: 07/08/19 Discharge Plan Patient Name: REED COX Facility: [facility]:[place] : 1955 Planned Disposition: Penitentiary Facility Anticipated Discharge Date: Discharge Date: Expected LOS: Initial Reviewer: [email or web address] Initial Review Date: 07/04/2019 Generated: 07/08/19 2:03 pm Comments DCP- Discharge Planning Updated by [email or web address]: Apurva Jurado on 07/08/19 11:[address] I spoke with Jennifer at [facility], she states that his insurance states that they sent records to [facility]. I called Elise with [facility] and informed her of his delays for auth and that this is his fourth admission. She states she will see if she can help and call me back. I informed the patient that we are awaiting insurance auth and that I have called the nurse liason at [facility] for assistance. CM will continue to follow and assist with discharge planning/needs. DCP- Discharge Planning Updated by [id number]: Apurva Jurado on 07/06/19 3:[address] I faxed additional OT note, wound note and [facility] progress [facility] show [facility] for [facility]. CM will continue to follow and assist with discharge planning/needs. DCP- Discharge Planning Updated by [id number]: Apurva Jurado on 07/06/19 12:[address] Spoke with Julia at [facility]. I have faxed OT note and wound vac note per her request. She is going to send clinical to insurance for auth. I spoke with patient's and informed her we are still awaiting authorization from insurance for SNF. CM will continue to follow and assist with discharge planning/needs. DCP- Discharge Planning Updated by [id number]: Apurva Jurado on 07/04/19 4:[address] Patient Name: REED COX Admission Status: ER Accout number: [id number] Admission Date: 06-30-2019 : 1955 Admission Diagnosis: Attending: FADIA, Current LOS: 4 Anticipated DC Date: Planned Disposition: Penitentiary Facility Primary Insurance: [employer] ADV Discharge Planning Comments: CM met with patient to discuss discharge planning, he is alone in the room. He would like to go to inpatient rehab again if possible prior to going home. He states he feels like he is too weak to go home. I spoke with Randi in inpatient rehab and she states he just left there one day ago and had completed the program. I spoke with him about a skilled facility and he states it is ok to speak with his about it. I called his and she would like [facility] She states that she thinks he is too weak to come home. I did inform her that he walked 250 feet and that he may be too high functioning for skilled and he would need preauthorization from insurance. She states she would like to see if we can get authorization. I called Jennifer and spoke to her at [facility] and clinical faxed. CM will continue to follow and assist with discharge planning/needs. Warehouse Specialist: Apurva Jurado DCPIA - Discharge Planning Initial Assessment Updated by [email or web address]: Apurva Jurado on 07/04/19 5:20 pm * Is the patient Alert and Oriented? Yes * How many steps to enter\exit or inside your home? Ramp/0 * PCP Dr. Castelan * Pharmacy [place] * Preadmission Environment Home with Family * ADLs Independent * Equipment Bedside Commode Cane CPAP Nebulizer Other Oxygen Wound Vac * Other Equipment Pulse oximeter Portable oxygen * List name and contact numbers for known caregivers / representatives who currently or will assist patient after discharge: Olga - - [phone] * Verbal permission to speak to the caregivers and representatives has been obtained from the patient. Yes * Community resources currently utilized Home Health * Please name any agencies selected above. [facility] * Additional services required to return to the preadmission environment? No * Can the patient safely return to the preadmission environment? Yes * Has this patient been hospitalized within the prior 30 days at any hospital? Yes Coverage Notice Reviewer: [id number] - Apurva Jurado Notice Issued Date-Time: 07/04/2019 17:27 Notice Type: Patient Choice Letter Notice Delivered To: Patient Relationship to Patient: Self Operating Room Registered Nurse Name: Delivery Method: HAND - Hand Delivered Nathaly Days: Prior Verbal Notification: Recipient Understood Notice: Yes Recipient Signature: Yes Med Rec Note Co-signed by Attending: Coverage Notice Comment: FITO for [facility] and [facility] Last DP export: 07/06/19 3:47 p Patient Name: REED COX Page [id number] at 1303 All edits/amendments must be made on the electronic document DICTATION DATE: 07/08/19 1303 CLINICAL SUPPORT TECH: JAKE 07/08/19 1303 RPT#: [id number] DC DATE: STATUS: ADM IN [facility] [address] [place] [address] END OF REPORT
[2019-07-08 16:25] VITALS: BP 132/68
[2019-07-08 20:00] VITALS: BP 139/70
[2019-07-09] VITALS: BP 122/62
[2019-07-09 04:00] VITALS: BP 133/67
[2019-07-09 07:11] LABS: ANION GAP 13.5 mmol/L (8-16); CALCIUM 8.3 mg/dL (8.5-10.1); CARBON DIOXIDE 26.6 mmol/L (21.0-32.0); CREATININE - SERUM 1.9 mg/dL (0.6-1.3); POTASSIUM - SERUM 3.1 mmol/L (3.5-5.1); VANCOMYCIN - RANDOM 5.4 ug/mL (10.0-20.0)
[2019-07-09 07:19] LABS: BASOPHILS 0.8 % (0-2); EOSINOPHILS 7.6 % (0-7); HEMATOCRIT 35.2 % (42.0-54.0); HEMOGLOBIN 11.7 g/dL (13.5-17.5); IMMATURE GRANULOCYTES 0.2 % (0-5); LYMPHOCYTES 26.8 % (15-50); MCH 31.1 pg (26.0-34.0); MCHC 33.2 g/dL (31.0-37.0); MCV 93.6 fL (80.0-100.0); MEAN PLATELET VOLUME 11.8 fL (7.4-10.4); MONOCYTES 10.4 % (2-11); NEUTROPHILS 54.2 % (40-80); PLATELET COUNT 236 10x3/uL (130-400); RBC 3.76 10x6/uL (4.20-6.10); RDW 16.9 % (11.5-14.5); WBC 6.3 10x3/uL (4.8-10.8)
[2019-07-09 09:04] VITALS: BP 122/57
[2019-07-09 17:04] VITALS: BP 122/64
[2019-07-09 20:00] VITALS: BP 123/58
[2019-07-10] VITALS: BP 124/71
[2019-07-10 04:00] VITALS: BP 127/70
[2019-07-10 06:34] LABS: BASOPHILS 1.3 % (0-2); EOSINOPHILS 6.6 % (0-7); HEMATOCRIT 36.9 % (42.0-54.0); HEMOGLOBIN 12.3 g/dL (13.5-17.5); IMMATURE GRANULOCYTES 0.1 % (0-5); LYMPHOCYTES 28.5 % (15-50); MCH 31.5 pg (26.0-34.0); MCHC 33.3 g/dL (31.0-37.0); MCV 94.6 fL (80.0-100.0); MEAN PLATELET VOLUME 10.9 fL (7.4-10.4); MONOCYTES 9.9 % (2-11); NEUTROPHILS 53.6 % (40-80); PLATELET COUNT 224 10x3/uL (130-400); RDW 17.2 % (11.5-14.5)
[2019-07-10 06:52] LABS: ANION GAP 13.6 mmol/L (8-16); CALCIUM 8.6 mg/dL (8.5-10.1); CARBON DIOXIDE 27.7 mmol/L (21.0-32.0); CREATININE - SERUM 2.1 mg/dL (0.6-1.3); POTASSIUM - SERUM 3.3 mmol/L (3.5-5.1); VANCOMYCIN - RANDOM 3.5 ug/mL (10.0-20.0)
[2019-07-10 08:35] VITALS: BP 130/63
[2019-07-10 12:31] VITALS: BP 128/53
[2019-07-10 17:42] VITALS: BP 139/73
[2019-07-10 20:00] VITALS: BP 131/76
[2019-07-11] VITALS: BP 105/57
[2019-07-11 04:00] VITALS: BP 112/63
[2019-07-11 05:30] LABS: BASOPHILS 1.8 % (0-2); EOSINOPHILS 7.7 % (0-7); HEMATOCRIT 36.2 % (42.0-54.0); HEMOGLOBIN 12.1 g/dL (13.5-17.5); IMMATURE GRANULOCYTES 0.3 % (0-5); LYMPHOCYTES 27.8 % (15-50); MCH 31.2 pg (26.0-34.0); MCHC 33.4 g/dL (31.0-37.0); MCV 93.3 fL (80.0-100.0); MEAN PLATELET VOLUME 11.4 fL (7.4-10.4); MONOCYTES 10.4 % (2-11); PLATELET COUNT 244 10x3/uL (130-400); RBC 3.88 10x6/uL (4.20-6.10); RDW 16.9 % (11.5-14.5); WBC 7.3 10x3/uL (4.8-10.8)
[2019-07-11 05:49] LABS: ANION GAP 14.5 mmol/L (8-16); CALCIUM 8.5 mg/dL (8.5-10.1); CARBON DIOXIDE 26.7 mmol/L (21.0-32.0); CREATININE - SERUM 1.9 mg/dL (0.6-1.3); MAGNESIUM - SERUM 1.8 mg/dL (1.8-2.4); POTASSIUM - SERUM 3.2 mmol/L (3.5-5.1)
[2019-07-11 08:05] VITALS: BP 108/59
[2019-07-11 12:42] VITALS: BP 98/42
--- NOTE | 2019-07-11 13:53 | MORECARE ---
CASE MANAGEMENT DISCHARGE SUMMARY PATIENT: REED COX UNIT: [id number] ADM DATE: 06/30/19 AGE: 63 : 55 SEX: M ROOM/BED: D.2237 AUTHOR: LOIS,DOC PHYSICIAN: REFERRING PHYSICIAN: ONI LOAIZA MD DATE OF SERVICE: 07/11/19 Discharge Plan Patient Name: REED COX Facility: [facility]:[place] : 1955 Planned Disposition: Correction Facility Anticipated Discharge Date: Discharge Date: Expected LOS: Initial Reviewer: [id number] Initial Review Date: 07/04/2019 Generated: 07/11/19 2:53 pm Comments DCP- Discharge Planning Updated by [email or web address]: Apurva Jurado on 07/11/19 12:[address] [facility] H[facility] and she states still awaiting insurance authorization for admission to SNF, updated clinical faxed. CM will continue to follow and assist with discharge planning/needs. DCP- Discharge Planning Updated by [email or web address]: Apurva Jurado on 07/08/19 11:[address] I spoke with Jennifer at [facility], she states that his insurance states that they sent records to [facility]. I called Elise with [facility] and informed her of his delays for auth and that this is his fourth admission. She states she will see if she can help and call me back. I informed the patient that we are awaiting insurance auth and that I have called the nurse liason at [facility] for assistance. CM will continue to follow and assist with discharge planning/needs. DCP- Discharge Planning Updated by [id number]: Apurva Jurado on 07/06/19 3:[address] I faxed additional OT note, wound note and physician progress note to [facility] to show the need for SNF. CM will continue to follow and assist with discharge planning/needs. DCP- Discharge Planning Updated by [email or web address]: Apurva Jurado on 07/06/19 12:[address] Spoke with Julia at [facility]. I have faxed OT note and wound vac note per her request. She is going to send clinical to insurance for auth. I spoke with patient's and informed her we are still awaiting authorization from insurance for SNF. CM will continue to follow and assist with discharge planning/needs. DCP- Discharge Planning Updated by [email or web address]: Apurva Rihannon on 07/04/19 4:[address] Patient Name: REED COX Admission Status: ER Accout number: [id number] Admission Date: 06-30-2019 : 1955 Admission Diagnosis: Attending: FADIA, Current LOS: 4 Anticipated DC Date: Planned Disposition: Correction Facility Primary Insurance: [employer] ADV Discharge Planning Comments: CM met with patient to discuss discharge planning, he is alone in the room. He would like to go to inpatient rehab again if possible prior to going home. He states he feels like he is too weak to go home. I spoke with Randi in inpatient rehab and she states he just left there one day ago and had completed the program. I spoke with him about a skilled facility and he states it is ok to speak with his about it. I called his and she would like him to go to [facility]. She states that she thinks he is too weak to come home. I did inform her that he walked 250 feet and that he may be too high functioning for skilled and he would need preauthorization from insurance. She states she would like to see if we can get authorization. I called Jennifer and spoke to her at [facility] and clinical faxed. CM will continue to follow and assist with discharge planning/needs. Warp Hauler: Apurva Jurado DCPIA - Discharge Planning Initial Assessment Updated by [id number]: Apurva Rhiannon on 07/04/19 5:20 pm * Is the patient Alert and Oriented? Yes * How many steps to enter\exit or inside your home? Ramp/0 * PCP Dr. Castelan * Pharmacy [place] * Preadmission Environment Home with Family * ADLs Independent * Equipment Bedside Commode Cane CPAP Nebulizer Other Oxygen Wound Vac * Other Equipment Pulse oximeter Portable oxygen * List name and contact numbers for known caregivers / representatives who currently or will assist patient after discharge: Olga - - [phone] * Verbal permission to speak to the caregivers and representatives has been obtained from the patient. Yes * Community resources currently utilized Home Health * Please name any agencies selected above. [facility] * Additional services required to return to the preadmission environment? No * Can the patient safely return to the preadmission environment? Yes * Has this patient been hospitalized within the prior 30 days at any hospital? Yes Coverage Notice Reviewer: [email or web address] Sabiha Apurva Jurado Notice Issued Date-Time: 07/04/2019 17:27 Notice Type: Patient Choice Letter Notice Delivered To: Patient Relationship to Patient: Self Fiscal Services Director Name: Delivery Method: HAND - Hand Delivered Nathaly Days: Prior Verbal Notification: Recipient Understood Notice: Yes Recipient Signature: Yes Med Rec Note Co-signed by Attending: Coverage Notice Comment: FITO for [facility] and [facility] Last DP export: 07/08/19 12:03 p Patient Name: REED COX Page [id number] at 1353 All edits/amendments must be made on the electronic document DICTATION DATE: 07/11/19 1353 LASER SET UP OPERATOR: JAKE 07/11/19 1353 RPT#: [id number] DC DATE: STATUS: ADM IN [facility] [address] [place] [address] END OF REPORT
[2019-07-11 17:16] VITALS: BP 135/82
[2019-07-11 19:48] VITALS: BP 124/65
[2019-07-12 00:59] VITALS: BP 128/70
[2019-07-12 05:08] VITALS: BP 134/80
[2019-07-12 06:03] LABS: BASOPHILS 1.2 % (0-2); HEMATOCRIT 37.9 % (42.0-54.0); HEMOGLOBIN 12.6 g/dL (13.5-17.5); IMMATURE GRANULOCYTES 0.2 % (0-5); LYMPHOCYTES 26.8 % (15-50); MCH 30.9 pg (26.0-34.0); MCHC 33.2 g/dL (31.0-37.0); MCV 92.9 fL (80.0-100.0); MEAN PLATELET VOLUME 11.2 fL (7.4-10.4); MONOCYTES 10.2 % (2-11); NEUTROPHILS 50.6 % (40-80); PLATELET COUNT 231 10x3/uL (130-400); RBC 4.08 10x6/uL (4.20-6.10); RDW 16.7 % (11.5-14.5); WBC 6.5 10x3/uL (4.8-10.8)
[2019-07-12 06:23] LABS: ANION GAP 14.1 mmol/L (8-16); CALCIUM 8.6 mg/dL (8.5-10.1); CREATININE - SERUM 1.9 mg/dL (0.6-1.3); MAGNESIUM - SERUM 1.9 mg/dL (1.8-2.4); POTASSIUM - SERUM 3.1 mmol/L (3.5-5.1)
[2019-07-12 08:04] VITALS: BP 126/62
--- NOTE | 2019-07-12 10:56 | MORECARE ---
CASE MANAGEMENT DISCHARGE SUMMARY PATIENT: REED COX UNIT: [id number] ADM DATE: 06/30/19 AGE: 63 : 55 SEX: M ROOM/BED: D.2237 AUTHOR: LOIS,DOC PHYSICIAN: REFERRING PHYSICIAN: ONI LOAIZA MD DATE OF SERVICE: 07/12/19 Discharge Plan Patient Name: REED COX Facility: [facility]:[place] : 1955 Planned Disposition: Long Term Facility Anticipated Discharge Date: Discharge Date: Expected LOS: Initial Reviewer: [email or web address] Initial Review Date: 07/04/2019 Generated: 07/12/19 11:55 am Comments DCP- Discharge Planning Updated by [id number]: Apurva Jurado on 07/12/19 9:[address] Spoke with Julia at [facility] and Rehab, she still does not have insurance authorization. I called Elise with [facility] about the authorization, she is going to talk to her doping supervisor to see if she can get the authorization for SNF. I will call Elise back today if I do not get feedback. CM will continue to follow and assist with discharge plan/needs. I called his and gave an update. DCP- Discharge Planning Updated by [id number]: Apurva Jurado on 07/11/19 12:[address] I spoke with Hanna at [facility] and she states still awaiting insurance authorization for admission to SNF, updated clinical faxed. CM will continue to follow and assist with discharge planning/needs. DCP- Discharge Planning Updated by [email or web address]: Apurva Jurado on 07/08/19 11:[address] I spoke with Jennifer at [facility] Rehab, she states that his insurance states that they sent records to [facility]. I called Elise with [facility] and informed her of his delays for auth and that this is his fourth admission. She states she will see if she can help and call me back. I informed the patient that we are awaiting insurance auth and that I have called the nurse liason at [facility] for assistance. CM will continue to follow and assist with discharge planning/needs. DCP- Discharge Planning Updated by [id number]: Apurva Jurado on 07/06/19 3:[address] I faxed additional OT note, wound note and physician progress note to [facility] to show the need for SNF. CM will continue to follow and assist with discharge planning/needs. DCP- Discharge Planning Updated by [email or web address]: Apurva Jurado on 07/06/19 12:[address] Spoke with Julia at [facility]. I have faxed OT note and wound vac note per her request. She is going to send clinical to insurance for auth. I spoke with patient's and informed her we are still awaiting authorization from insurance for SNF. CM will continue to follow and assist with discharge planning/needs. DCP- Discharge Planning Updated by [id number]: Apurva Jurado on 07/04/19 4:[address] Patient Name: REED COX Admission Status: ER Accout number: [id number] Admission Date: 06-30-2019 : 1955 Admission Diagnosis: Attending: FADIA, Current LOS: 4 Anticipated DC Date: Planned Disposition: Long Term Facility Primary Insurance: [employer] ADV Discharge Planning Comments: CM met with patient to discuss discharge planning, he is alone in the room. He would like to go to inpatient rehab again if possible prior to going home. He states he feels like he is too weak to go home. I spoke with Randi in inpatient rehab and she states he just left there one day ago and had completed the program. I spoke with him about a skilled facility and he states it is ok to speak with his about it. I called his and she would like him to go to [facility]. She states that she thinks he is too weak to come home. I did inform her that he walked 250 feet and that he may be too high functioning for skilled and he would need preauthorization from insurance. She states she would like to see if we can get authorization. I called Jennifer and spoke to her at [facility] and clinical faxed. CM will continue to follow and assist with discharge planning/needs. Photovoltaic Technician: Apurva Jurado DCPIA - Discharge Planning Initial Assessment Updated by [id number]: Apurva Jurado on 07/04/19 5:20 pm * Is the patient Alert and Oriented? Yes * How many steps to enter\exit or inside your home? Ramp/0 * PCP Dr. Castelan * Pharmacy [place] * Preadmission Environment Home with Family * ADLs Independent * Equipment Bedside Commode Cane CPAP Nebulizer Other Oxygen Wound Vac * Other Equipment Pulse oximeter Portable oxygen * List name and contact numbers for known caregivers / representatives who currently or will assist patient after discharge: Olga gomez - [phone] * Verbal permission to speak to the caregivers and representatives has been obtained from the patient. Yes * Community resources currently utilized Home Health * Please name any agencies selected above. [facility] * Additional services required to return to the preadmission environment? No * Can the patient safely return to the preadmission environment? Yes * Has this patient been hospitalized within the prior 30 days at any hospital? Yes Coverage Notice Reviewer: [id number] Sabiha Jurado Notice Issued Date-Time: 07/04/2019 17:27 Notice Type: Patient Choice Letter Notice Delivered To: Patient Relationship to Patient: Self Wound Treatment Rn Name: Delivery Method: HAND - Hand Delivered Nathaly Days: Prior Verbal Notification: Recipient Understood Notice: Yes Recipient Signature: Yes Med Rec Note Co-signed by Attending: Coverage Notice Comment: FITO for [facility] Last DP export: 07/11/19 12:53 pm Patient Name: REED COX Page [id number] at 1056 All edits/amendments must be made on the electronic document DICTATION DATE: 07/12/19 1055 WHITE GOODS APPLIANCE TECH: JAKE 07/12/19 1055 RPT#: [id number] DC DATE: STATUS: ADM IN [facility] [address] [place] [address] END OF REPORT
[2019-07-12 12:36] VITALS: BP 140/59
[2019-07-12 16:25] VITALS: BP 131/59
[2019-07-12 20:14] VITALS: BP 130/61
[2019-07-13 00:41] VITALS: BP 120/60
[2019-07-13 04:35] VITALS: BP 116/56
[2019-07-13 06:54] LABS: BASOPHILS 1.7 % (0-2); EOSINOPHILS 12.3 % (0-7); HEMOGLOBIN 12.8 g/dL (13.5-17.5); IMMATURE GRANULOCYTES 0.4 % (0-5); LYMPHOCYTES 28.1 % (15-50); MCH 31.4 pg (26.0-34.0); MCHC 33.7 g/dL (31.0-37.0); MCV 93.1 fL (80.0-100.0); MEAN PLATELET VOLUME 11.5 fL (7.4-10.4); MONOCYTES 10.9 % (2-11); NEUTROPHILS 46.6 % (40-80); PLATELET COUNT 230 10x3/uL (130-400); RBC 4.08 10x6/uL (4.20-6.10); RDW 16.9 % (11.5-14.5); WBC 7.2 10x3/uL (4.8-10.8)
[2019-07-13 07:20] LABS: ANION GAP 13.8 mmol/L (8-16); CALCIUM 8.7 mg/dL (8.5-10.1); CARBON DIOXIDE 27.9 mmol/L (21.0-32.0); CREATININE - SERUM 1.9 mg/dL (0.6-1.3); MAGNESIUM - SERUM 1.9 mg/dL (1.8-2.4); POTASSIUM - SERUM 3.7 mmol/L (3.5-5.1)
[2019-07-13 08:28] VITALS: BP 124/65
--- NOTE | 2019-07-13 10:09 | MORECARE ---
CASE MANAGEMENT DISCHARGE SUMMARY PATIENT: REED COX UNIT: [id number] ADM DATE: 06/30/19 AGE: 63 : 55 SEX: M ROOM/BED: D.2237 AUTHOR: LOIS,DOC PHYSICIAN: REFERRING PHYSICIAN: ONI LOAIZA MD DATE OF SERVICE: 07/13/19 Discharge Plan Patient Name: REED COX Facility: [facility]:[place] : 1955 Planned Disposition: Jail Facility Anticipated Discharge Date: Discharge Date: Expected LOS: Initial Reviewer: [email or web address] Initial Review Date: 07/04/2019 Generated: 07/13/19 11:09 am Comments DCP- Discharge Planning Updated by [email or web address]: Apurva Jurado on 07/13/19 9:[address] Spoke with Elise Lozano, Nurse liaison for post acute care for [employer] ([facility]) insurance. She states "someone is working on getting the authorization today and I will call you when I hear something." CM will continue to follow and assist with discharge planning/needs. DCP- Discharge Planning Updated by [id number]: Apurva Jurado on 07/12/19 9:[address] Spoke with Julia at [facility] and Rehab, she still does not have insurance authorization. [facility], she is going to talk to her station installation supervisor to see if she can get the authorization for SNF. I will call Elise back today if I do not get feedback. CM will continue to follow and assist with discharge plan/needs. I called his and gave an update. DCP- Discharge Planning Updated by [id number]: Apurva Jurado on 07/11/19 12:[address] I spoke with Hanna at [facility]hab and she states still awaiting insurance authorization for admission to SNF, updated clinical faxed. CM will continue to follow and assist with discharge planning/needs. DCP- Discharge Planning Updated by [id number]: Apurva Jurado on 07/08/19 11:[address] I spoke with Jennifer at [facility] and Rehab, she states that his insurance states that they sent records to [facility]. I called Elise with [facility] and informed her of his delays for auth and that this is his fourth admission. She states she will see if she can help and call me back. I informed the patient that we are awaiting insurance auth and that I have called the nurse liason at [facility] for assistance. CM will continue to follow and assist with discharge planning/needs. DCP- Discharge Planning Updated by [id number]: Apurva Jurado on 07/06/19 3:[address] I faxed additional OT note, wound note and physician progress note to [facility] to show the need for SNF. CM will continue to follow and assist with discharge planning/needs. DCP- Discharge Planning Updated by [id number]: Auprva Jurado on 07/06/19 12:[address] Spoke with Julia at [facility]. I have faxed OT note and wound vac note per her request. She is going to send clinical to insurance for auth. I spoke with patient's and informed her we are still awaiting authorization from insurance for SNF. CM will continue to follow and assist with discharge planning/needs. DCP- Discharge Planning Updated by [id number]: Apurva Jurado on 07/04/19 4:[address] Patient Name: REED COX Admission Status: ER Accout number: [id number] Admission Date: 06-30-2019 : 1955 Admission Diagnosis: Attending: FADIA Current LOS: 4 Anticipated DC Date: Planned Disposition: Jail Facility Primary Insurance: [employer] MEDICARE ADV Discharge Planning Comments: CM met with patient to discuss discharge planning, he is alone in the room. He would like to go to inpatient rehab again if possible prior to going home. He states he feels like he is too weak to go home. I spoke with Randi in inpatient rehab and she states he just left there one day ago and had completed the program. I spoke with him about a skilled facility and he states it is ok to speak with his about it. I called his and she would like him to go to [facility]hab. She states that she thinks he is too weak to come home. I did inform her that he walked 250 feet and that he may be too high functioning for skilled and he would need preauthorization from insurance. She states she would like to see if we can get authorization. I called Jennifer and spoke to her at [facility] and clinical faxed. CM will continue to follow and assist with discharge planning/needs. Retort Fireman: Apurva Jurado DCPIA - Discharge Planning Initial Assessment Updated by [id number]: Apurva Jurado on 07/04/19 5:20 pm * Is the patient Alert and Oriented? Yes * How many steps to enter\\exit or inside your home? Ramp/0 * PCP Dr. Castelan * Pharmacy [place] * Preadmission Environment Home with Family * ADLs Independent * Equipment Bedside Commode Cane CPAP Nebulizer Other Oxygen Wound Vac * Other Equipment Pulse oximeter Portable oxygen * List name and contact numbers for known caregivers / representatives who currently or will assist patient after discharge: Olga gomez - [phone] * Verbal permission to speak to the caregivers and representatives has been obtained from the patient. Yes * Community resources currently utilized Home Health * Please name any agencies selected above. [facility] * Additional services required to return to the preadmission environment? No * Can the patient safely return to the preadmission environment? Yes * Has this patient been hospitalized within the prior 30 days at any hospital? Yes Coverage Notice Reviewer: [id number] - Apurva Jurado Notice Issued Date-Time: 07/04/2019 17:27 Notice Type: Patient Choice Letter Notice Delivered To: Patient Relationship to Patient: Self Shot Bagger Name: Delivery Method: HAND - Hand Delivered Nathaly Days: Prior Verbal Notification: Recipient Understood Notice: Yes Recipient Signature: Yes Med Rec Note Co-signed by Attending: Coverage Notice Comment: FITO for [facility] and [facility] Last DP export: 07/12/19 9:55 am Patient Name: REED COX Page 48319 at 1009 All edits/amendments must be made on the electronic document DICTATION DATE: 07/13/19 1008 FITTINGS FINISHER: JAKE 07/13/19 1008 RPT#: [id number] DC DATE: STATUS: ADM IN [facility] [address] [place] [address] END OF REPORT
--- NOTE | 2019-07-13 12:35 | MORECARE ---
CASE MANAGEMENT DISCHARGE SUMMARY PATIENT: REED COX UNIT: [id number] ADM DATE: 06/30/19 AGE: 63 : 55 SEX: M ROOM/BED: D.2237 AUTHOR: SIOBHAN ABREU PHYSICIAN: REFERRING PHYSICIAN: ONI LOAIZA MD DATE OF SERVICE: 07/13/19 Discharge Plan Patient Name: REED OCX Facility: [facility]:[place] : 1955 Planned Disposition: Retirement Facility Anticipated Discharge Date: Discharge Date: Expected LOS: Initial Reviewer: [id number] Initial Review Date: 07/04/2019 Generated: 07/13/19 1:35 pm Comments DCP- Discharge Planning Updated by [email or web address]: Apurva Jurado on 07/13/19 11:[address] Laquita called from [facility] and states they have authorization for admission. She states they will pick him up at 1400. I informed her I would have his bring home wound vac supplies here prior to discharge. I also informed her that he has 3 liters [place] oxygen and he wears oxygen at home. I called patient's and informed her and she states she will bring wound vac supplies prior to 1400 black pickler time. Patient's nurse (Elise) informed. clinical pharmacy coordinator informed of 1400 black pickler time. He will be going to a skilled bed. DCP- Discharge Planning Updated by [id number]: Apurva Jurado on 07/13/19 9:[address] Spoke with Elise Lozano, Nurse liaison for post acute care for [employer] ([facility]) insurance. She states "someone is working on getting the authorization today and I will call you when I hear something." CM will continue to follow and assist with discharge planning/needs. DCP- Discharge Planning Updated by [id number]: Apurva Jurado on 07/12/19 9:[address] Spoke with Julia at [facility] and Rehab, she still does not have insurance authorization. I called Elise with [facility] about the authorization, she is going to talk to her cafeteria supervisor to see if she can get the authorization for SNF. I will call Elise back today if I do not get feedback. CM will continue to follow and assist with discharge plan/needs. I called his and gave an update. DCP- Discharge Planning Updated by [id number]: Apurva Jurado on 07/11/19 12:[address] I spoke with H[facility] and she states still awaiting insurance authorization for admission to SNF, updated clinical faxed. CM will continue to follow and assist with discharge planning/needs. DCP- Discharge Planning Updated by [id number]: Apurva Jurado on 07/08/19 11:[address] I spoke with Jennifer at [facility] and Rehab, she states that his insurance states that they sent records to [facility]. I called Elise with [facility] and informed her of his delays for auth and that this is his fourth admission. She states she will see if she can help and call me back. I informed the patient that we are awaiting insurance auth and that I have called the nurse liason at [facility] for assistance. CM will continue to follow and assist with discharge planning/needs. DCP- Discharge Planning Updated by [id number]: Apurva Santamariacarlos on 07/06/19 3:[address] I faxed additional OT note, wound note and physician progress note to [facility] to show the need for SNF. CM will continue to follow and assist with discharge planning/needs. DCP- Discharge Planning Updated by [email or web address]: Apurva Jurado on 07/06/19 12:[address] Spoke with Julia at [facility] and [facility]. I have faxed OT note and wound vac note per her request. She is going to send clinical to insurance for auth. I spoke with patient's and informed her we are still awaiting authorization from insurance for SNF. CM will continue to follow and assist with discharge planning/needs. DCP- Discharge Planning Updated by [email or web address]: Apurva Santamariacarlos on 07/04/19 4:[address] Patient Name: REED COX Admission Status: ER Accout number: [id number] Admission Date: 06-30-2019 : 1955 Admission Diagnosis: Attending: FADIA, Current LOS: 4 Anticipated DC Date: Planned Disposition: Retirement Facility Primary Insurance: [employer] ADV Discharge Planning Comments: CM met with patient to discuss discharge planning, he is alone in the room. He would like to go to inpatient rehab again if possible prior to going home. He states he feels like he is too weak to go home. I spoke with Randi in inpatient rehab and she states he just left there one day ago and had completed the program. I spoke with him about a skilled facility and he states it is ok to speak with his about it. I called his and she would like him to go to [facility] and [facility]. She states that she thinks he is too weak to come home. I did inform her that he walked 250 feet and that he may be too high functioning for skilled and he would need preauthorization from insurance. She states she would like to see if we can get authorization. I called Jennifer and spoke to her at [facility] and clinical faxed. CM will continue to follow and assist with discharge planning/needs. Adult Family Home Program Manager: Apurva Jurado DCPIA - Discharge Planning Initial Assessment Updated by [id number]: Apurva Jurado on 07/04/19 5:20 pm * Is the patient Alert and Oriented? Yes * How many steps to enter\\exit or inside your home? Ramp/0 * PCP Dr. Castelan * Pharmacy [place] * Preadmission Environment Home with Family * ADLs Independent * Equipment Bedside Commode Cane CPAP Nebulizer Other Oxygen Wound Vac * Other Equipment Pulse oximeter Portable oxygen * List name and contact numbers for known caregivers / representatives who currently or will assist patient after discharge: Olga gomez - [phone] * Verbal permission to speak to the caregivers and representatives has been obtained from the patient. Yes * Community resources currently utilized Home Health * Please name any agencies selected above. [employer] [facility] * Additional services required to return to the preadmission environment? No * Can the patient safely return to the preadmission environment? Yes * Has this patient been hospitalized within the prior 30 days at any hospital? Yes Coverage Notice Reviewer: [id number] - Apurva Jurado Notice Issued Date-Time: 07/04/2019 17:27 Notice Type: Patient Choice Letter Notice Delivered To: Patient Relationship to Patient: Self Cafeteria Food Server Name: Delivery Method: HAND - Hand Delivered Nathaly Days: Prior Verbal Notification: Recipient Understood Notice: Yes Recipient Signature: Yes Med Rec Note Co-signed by Attending: Coverage Notice Comment: FITO for [facility] and [employer] [facility] Reviewer: [id number] Sabiha Jurado Notice Issued Date-Time: 07/13/2019 11:15 Notice Type: IM Discharge Notice Notice Delivered To: Patient Relationship to Patient: Self Cafeteria Food Server Name: Delivery Method: HAND - Hand Delivered Nathaly Days: Prior Verbal Notification: Recipient Understood Notice: Yes Recipient Signature: Yes Med Rec Note Co-signed by Attending: Coverage Notice Comment: IMM explained, signed, given, copy placed in MR Last DP export: 07/13/19 9:09 am Patient Name: REED COX Page 66091 at 1235 All edits/amendments must be made on the electronic document DICTATION DATE: 07/13/19 1235 PRINTED CIRCUIT BOARDS STRIPPER ETCHER: JAKE 07/13/19 1235 RPT#: [id number] DC DATE: STATUS: ADM IN [facility] [address] [place] [address] END OF REPORT
[2019-07-13 12:37] VITALS: BP 149/85
--- NOTE | 2019-07-18 12:37 | MORECARE ---
CASE MANAGEMENT DISCHARGE SUMMARY PATIENT: REED OCX UNIT: [id number] ADM DATE: 06/30/19 AGE: 63 : 55 SEX: M ROOM/BED: D.2237 AUTHOR: SIOBHAN ABREU PHYSICIAN: REFERRING PHYSICIAN: ONI LOAIZA MD DATE OF SERVICE: 07/18/19 Discharge Plan Patient Name: REED COX Facility: [facility]:[place] : 1955 Planned Disposition: Half-Way Facility Anticipated Discharge Date: Discharge Date: 07/13/2019 Expected LOS: 0 Initial Reviewer: [email or web address] Initial Review Date: 07/04/2019 Generated: 07/18/19 1:37 pm DCP- Discharge Planning Updated by [email or web address]: Apurva Jurado on 07/13/19 11:[address] Laquita called from [facility] and states they have authorization for admission. She states they will pick him up at 1400. I informed her I would have his bring home wound vac supplies here prior to discharge. I also informed her that he has 3 liters [place] oxygen and he wears oxygen at home. I called patient's and informed her and she states she will bring wound vac supplies prior to 1400 supervisor opening and picking time. Patient's nurse (Elise) informed. telehealth coordinator informed of 1400 supervisor opening and picking time. He will be going to a skilled bed. DCP- Discharge Planning Updated by [id number]: Apurva Jurado on 07/13/19 9:[address] Spoke with Elise Lozano, Nurse liaison for post acute care for [employer] ([facility]) insurance. She states "someone is working on getting the authorization today and I will call you when I hear something." CM will continue to follow and assist with discharge planning/needs. DCP- Discharge Planning Updated by [email or web address]: Apurva Jurado on 07/12/19 9:[address] Spoke with Julia at [facility], she still does not have insurance authorization. I called Elise with [facility] about the authorization, she is going to talk to her dials supervisor to see if she can get the authorization for SNF. I will call Elise back today if I do not get feedback. CM will continue to follow and assist with discharge plan/needs. I called his and gave an update. DCP- Discharge Planning Updated by [email or web address]: Apurva Santamariacarlos on 07/11/19 12:[address] I spoke with Hanna at [facility] and she states still awaiting insurance authorization for admission to SNF, updated clinical faxed. CM will continue to follow and assist with discharge planning/needs. DCP- Discharge Planning Updated by [email or web address]: Apurva Santamariacarlos on 07/08/19 11:[address] I spoke with Jennifer at [facility], she states that his insurance states that they sent records to [facility]. I called Elise with [facility] and informed her of his delays for auth and that this is his fourth admission. She states she will see if she can help and call me back. I informed the patient that we are awaiting insurance auth and that I have called the nurse liason at [facility] for assistance. CM will continue to follow and assist with discharge planning/needs. DCP- Discharge Planning Updated by [email or web address]: Apurva Rhiannon on 07/06/19 3:[address] I faxed additional OT note, wound note and physician progress note to [facility] to show the need for SNF. CM will continue to follow and assist with discharge planning/needs. DCP- Discharge Planning Updated by [email or web address]: Apurva Santamariacarlos on 07/06/19 12:[address] Spoke with Julia at [facility]. I have faxed OT note and wound vac note per her request. She is going to send clinical to insurance for auth. I spoke with patient's and informed her we are still awaiting authorization from insurance for SNF. CM will continue to follow and assist with discharge planning/needs. DCP- Discharge Planning Updated by [email or web address]: Apurva Rhiannon on 07/04/19 4:[address] Patient Name: REED COX Admission Status: ER Accout number: [id number] Admission Date: 06-30-2019 : 1955 Admission Diagnosis: Attending: FADIA, Current LOS: 4 Anticipated DC Date: Planned Disposition: Half-Way Facility Primary Insurance: [employer] MEDICARE ADV Discharge Planning Comments: CM met with patient to discuss discharge planning, he is alone in the room. He would like to go to inpatient rehab again if possible prior to going home. He states he feels like he is too weak to go home. I spoke with Randi in inpatient rehab and she states he just left there one day ago and had completed the program. I spoke with him about a skilled facility and he states it is ok to speak with his about it. I called his and she would like him to go to [facility]. She states that she thinks he is too weak to come home. I did inform her that he walked 250 feet and that he may be too high functioning for skilled and he would need preauthorization from insurance. She states she would like to see if we can get authorization. I called Jennifer and spoke to her at [facility] and clinical faxed. CM will continue to follow and assist with discharge planning/needs. Web User Experience Strategist: Apurva Jurado DCPIA - Discharge Planning Initial Assessment Updated by [email or web address]: Apurva Jurado on 07/04/19 5:20 pm * Is the patient Alert and Oriented? Yes * How many steps to enter\\exit or inside your home? Ramp/0 * PCP Dr. Castelan * Pharmacy [place] * Preadmission Environment Home with Family * ADLs Independent * Equipment Bedside Commode Cane CPAP Nebulizer Other Oxygen Wound Vac * Other Equipment Pulse oximeter Portable oxygen * List name and contact numbers for known caregivers / representatives who currently or will assist patient after discharge: Olga gomez - [phone] * Verbal permission to speak to the caregivers and representatives has been obtained from the patient. Yes * Community resources currently utilized Home Health * Please name any agencies selected above. [facility] * Additional services required to return to the preadmission environment? No * Can the patient safely return to the preadmission environment? Yes * Has this patient been hospitalized within the prior 30 days at any hospital? Yes Coverage Notice Reviewer: [email or web address] - Apurva Jurado Notice Issued Date-Time: 07/04/2019 17:27 Notice Type: Patient Choice Letter Notice Delivered To: Patient Relationship to Patient: Self Cupola Tapper Helper Name: Delivery Method: HAND - Hand Delivered Nathaly Days: Prior Verbal Notification: Recipient Understood Notice: Yes Recipient Signature: Yes Med Rec Note Co-signed by Attending: Coverage Notice Comment: FITO for [facility] Reviewer: [email or web address] Sabiha Jurado Notice Issued Date-Time: 07/13/2019 11:15 Notice Type: IM Discharge Notice Notice Delivered To: Patient Relationship to Patient: Self Cupola Tapper Helper Name: Delivery Method: HAND - Hand Delivered Nathaly Days: Prior Verbal Notification: Recipient Understood Notice: Yes Recipient Signature: Yes Med Rec Note Co-signed by Attending: Coverage Notice Comment: IMM explained, signed, given, copy placed in MR Last DP export: 07/13/19 11:35 am Patient Name: REED COX Page [id number] at 1237 All edits/amendments must be made on the electronic document DICTATION DATE: 07/18/19 1237 HOSPITALITY TEAM MEMBER: JAKE 07/18/19 1237 RPT#: [id number] DC DATE:07/13/19 STATUS: DIS IN [facility] [address] [place] [address] END OF REPORT
== END 2019-07-13 15:55 | DRG 919 ==
LOC: D.ER 12:06 → D.MS 17:19
PROVIDERS: Family Medicine; Internal Medicine Nephrology; ADMIT Family Medicine; ATTEND Family Medicine
DX: T81.32XA Disruption of internal operation (surgical) wound, not elsewhere classified, initial encounter (principal); J18.1 Lobar pneumonia, unspecified organism; F10.239 Alcohol dependence with withdrawal, unspecified; Z68.41 Body mass index [BMI] 40.0-44.9, adult; I13.0 Hypertensive heart and chronic kidney disease with heart failure and stage 1 through stage 4 chronic kidney disease, or unspecified chronic kidney disease; I50.22 Chronic systolic (congestive) heart failure; N17.9 Acute kidney failure, unspecified; E66.01 Morbid (severe) obesity due to excess calories; G47.33 Obstructive sleep apnea (adult) (pediatric); N18.9 Chronic kidney disease, unspecified; I25.10 Atherosclerotic heart disease of native coronary artery without angina pectoris; D64.9 Anemia, unspecified

== ENCOUNTER 2019-08-19 18:17 | Inpatient (IN) | payer MEDICARE ==
[~2019-08-19] VITALS: Ht 185.4 cm; Wt 129.3 kg
[~2019-08-19 18:17] MED LIST changes: +BUTALB-APAP-CA1 EACH; +LIPITOR40 MG; +LYRICA25 MG
[2019-08-19 19:29] LABS: BASOPHILS 0.2 % (0-2); EOSINOPHILS 1.8 % (0-7); HEMATOCRIT 43.6 % (42.0-54.0); HEMOGLOBIN 13.9 g/dL (13.5-17.5); IMMATURE GRANULOCYTES 0.3 % (0-5); LYMPHOCYTES 16.9 % (15-50); MCH 29.7 pg (26.0-34.0); MCHC 31.9 g/dL (31.0-37.0); MCV 93.2 fL (80.0-100.0); MONOCYTES 8.5 % (2-11); NEUTROPHILS 72.3 % (40-80); PLATELET COUNT 296 10x3/uL (130-400); RBC 4.68 10x6/uL (4.20-6.10); RDW 15.5 % (11.5-14.5); WBC 9.9 10x3/uL (4.8-10.8)
[2019-08-19 19:43] LABS: ALBUMIN 2.8 g/dL (3.4-5.0); ALKALINE PHOSPHATASE 147 U/L (46-116); ALT (SGPT) 62 U/L (10-68); BILIRUBIN - TOTAL 0.55 mg/dL (0.2-1.3); CALC OSMOLALITY 285 mosm/kg (275-300); CALCIUM 8.5 mg/dL (8.5-10.1); CARBON DIOXIDE 22.3 mmol/L (21.0-32.0); CHLORIDE - SERUM 102 mmol/L (98-107); CREATININE - SERUM 5.2 mg/dL (0.6-1.3); GLUCOSE 81 mg/dL (74-106); POTASSIUM - SERUM 4.3 mmol/L (3.5-5.1); PROTEIN - SERUM 7.2 g/dL (6.4-8.2); SODIUM 138 mmol/L (136-145); UREA NITROGEN 43 mg/dL (7-18); eGFR NON AFRICAN AMERICAN 12 mL/min (90-120)
[2019-08-19 19:51] LABS: LIPASE 221 U/L (73-393); MAGNESIUM - SERUM 1.6 mg/dL (1.8-2.4); PHOSPHOROUS 5.7 mg/dL (2.5-4.9); PRO BNP 1573 pg/mL (0-125)
[2019-08-19 19:52] LABS: TROPONIN-I < 0.017 ng/mL (0.000-0.060)
--- NOTE | 2019-08-19 21:00 | NUR ---
PT RECEIVED FROM ER, PT IS A&Ox4, PLACED ON TELEMTRY, HISTORY COMPLETE, PT STATES HIS WILL BRING MEDS TOMORROW, HE IS UNSURE WHAT MEDS HE TAKES, PT HAS A WOUND VAC TO L.FLANK, IV-20G.R.WRIST, BED IS LOW, SRX2, CALL LIGHT IN REACH, WILL CONTINUE PLAN OF CARE
[2019-08-19 22:08] VITALS: BP 102/56; BMI 37.6
[2019-08-19 23:36] VITALS: BP 111/54
[2019-08-20 04:45] VITALS: BP 115/54
[2019-08-20 05:35] LABS: BASOPHILS 0.2 % (0-2); EOSINOPHILS 3.8 % (0-7); HEMATOCRIT 42.9 % (42.0-54.0); HEMOGLOBIN 13.7 g/dL (13.5-17.5); IMMATURE GRANULOCYTES 0.2 % (0-5); LYMPHOCYTES 23.6 % (15-50); MCH 29.8 pg (26.0-34.0); MCHC 31.9 g/dL (31.0-37.0); MCV 93.5 fL (80.0-100.0); MONOCYTES 8.8 % (2-11); NEUTROPHILS 63.4 % (40-80); PLATELET COUNT 323 10x3/uL (130-400); RBC 4.59 10x6/uL (4.20-6.10); RDW 15.5 % (11.5-14.5); WBC 8.7 10x3/uL (4.8-10.8)
[2019-08-20 06:01] LABS: APTT 35.9 SECONDS (22.8-39.4); INR 1.18 (0.85-1.17); PROTIME 14.5 SECONDS (11.6-15.0)
[2019-08-20 06:11] LABS: ALBUMIN 2.7 g/dL (3.4-5.0); ANION GAP 15.3 mmol/L (8-16); CALCIUM 8.4 mg/dL (8.5-10.1); CARBON DIOXIDE 21.8 mmol/L (21.0-32.0); CREATININE - SERUM 4.7 mg/dL (0.6-1.3); MAGNESIUM - SERUM 1.7 mg/dL (1.8-2.4); POTASSIUM - SERUM 4.1 mmol/L (3.5-5.1)
[2019-08-20 06:14] LABS: BILIRUBIN - TOTAL 2.14 mg/dL (0.2-1.3)
--- NOTE | 2019-08-20 06:17 | NUR ---
[id number] APPLEJUICE AND GRAMCRACKERS
[2019-08-20 06:36] LABS: APPEARANCE CLEAR (CLEAR); BILIRUBIN NEGATIVE (NEGATIVE); COLOR YELLOW (YELLOW); GLUCOSE NEGATIVE (NEGATIVE); KETONE NEGATIVE (NEGATIVE); NITRITE NEGATIVE (NEGATIVE); PROTEIN NEGATIVE (NEGATIVE); SPECIFIC GRAVITY 1.015 (1.005-1.020); UROBILINOGEN NORMAL (NORMAL)
[2019-08-20 06:38] LABS: BACTERIA FEW /hpf (NEGATIVE); RED CELLS - URINE OCC /hpf (0-5); WHITE CELLS - URINE 0-5 /hpf (NEGATIVE)
[2019-08-20 08:00] VITALS: BP 103/54
--- NOTE | 2019-08-20 08:07 | NUR ---
REPORT RECIEVED. PT RESTING QUIETLY. RISE AND FALL OF CHEST NOTED. RR EVEN AND UNLABORED. PT HAS A R WRIST PIV INFUSING NS @125. BED LOCKED AND IN LOWEST POSITION, CALL LIGHT WITHIN REACH. WILL CTM
[2019-08-20 09:11] VITALS: BMI 37.6
[2019-08-20 10:41] VITALS: Ht 185.4 cm; Wt 129.3 kg
[2019-08-20 12:00] VITALS: BP 100/50
--- NOTE | 2019-08-20 14:24 | NUR ---
I have reviewed this patient and I concur with the Shift Assessment completed by the Licensed Practical Nurse today this shift.
--- NOTE | 2019-08-20 15:03 | NUR ---
PT HAS A WOUND VAC FROM HOME POST LEFT KIDNEY REMOVAL. WOUND VAC IS READING BLOCKAGE ERROR. CALLED [facility] DIG[facility] WHO THEN TOLD ME TO [facility]ANC[facility] RENAL LICENSED VOCATIONAL NURSEFabricio SHAY. LAURITA TOLD ME TO HAVE PT/FAMILY TO CALL THE HOMEHEALTH NURSE TO FIND OUT WHAT NEEDS TO BE DONE ABOUT THE BLOCKAGE ERROR. WILL CTM
[2019-08-20 16:00] VITALS: BP 104/52
--- NOTE | 2019-08-20 19:35 | NUR ---
PT RESTING IN BED WITH EYES CLOSED. RR EVEN AND UNLABORED. NS GOING AT 125ML/HR. WOUND VAC LEFT UPPER ABDOMEN. NO S/S OF DISTRESS AT THIS TIME. BED LOW CALL LIGHT WITHIN REACH. WILL CONTINUE TO MONITOR. PT RUNNING 65 SR ON TELE WITH BBB AND 1ST DEGREE.
[2019-08-20 20:35] VITALS: BP 106/58
--- NOTE | 2019-08-20 21:32 | NUR ---
PT RESTING WITH IN BED COMPLAING OF "THE RUNS." RR EVEN AND UNLABORED ALERT AND ORIENTED VITALS STABLE. BED LOW CALL LIGHT WITHIN REACH. WILL CONTINUE TO MONITOR.
[2019-08-20 23:52] VITALS: BP 106/55
--- NOTE | 2019-08-21 00:55 | NUR ---
PT RESTING IN BED WITH EYES CLOSED RR EVEN AND UNLABORED. NO S/S OF DISTRESS AT THIS TIME. BED LOW CALL LIGHT WITHIN REACH. WILL CONTINUE TO MONITOR.
[2019-08-21 04:02] VITALS: BP 124/61
--- NOTE | 2019-08-21 04:14 | NUR ---
I have reviewed this patient and I concur with the Shift Assessment completed by the Licensed Practical Nurse today this shift.
[2019-08-21 04:58] LABS: BASOPHILS 0.2 % (0-2); EOSINOPHILS 4.2 % (0-7); HEMATOCRIT 40.9 % (42.0-54.0); HEMOGLOBIN 13.1 g/dL (13.5-17.5); IMMATURE GRANULOCYTES 0.2 % (0-5); LYMPHOCYTES 19.5 % (15-50); MCH 29.8 pg (26.0-34.0); MCV 93.2 fL (80.0-100.0); MEAN PLATELET VOLUME 10.9 fL (7.4-10.4); MONOCYTES 9.4 % (2-11); NEUTROPHILS 66.5 % (40-80); PLATELET COUNT 292 10x3/uL (130-400); RBC 4.39 10x6/uL (4.20-6.10); RDW 15.6 % (11.5-14.5); WBC 8.8 10x3/uL (4.8-10.8)
[2019-08-21 05:18] LABS: ALBUMIN 2.3 g/dL (3.4-5.0); ANION GAP 16.5 mmol/L (8-16); BILIRUBIN - TOTAL 0.38 mg/dL (0.2-1.3); CALCIUM 8.1 mg/dL (8.5-10.1); CARBON DIOXIDE 21.8 mmol/L (21.0-32.0); MAGNESIUM - SERUM 1.4 mg/dL (1.8-2.4); POTASSIUM - SERUM 4.3 mmol/L (3.5-5.1); PROTEIN - SERUM 6.2 g/dL (6.4-8.2)
[2019-08-21 05:20] LABS: CREATININE - SERUM 3.2 mg/dL (0.6-1.3); PHOSPHOROUS 4.2 mg/dL (2.5-4.9)
[2019-08-21 08:47] VITALS: BP 123/60
[2019-08-21 13:04] VITALS: BP 112/50
[2019-08-21 17:47] VITALS: BP 120/64
--- NOTE | 2019-08-21 19:10 | NUR ---
AWAKE AND ALERT SEEN TO NEEDS AT THIS TIME LUNGS DEMINISHED BUT CLEAR BED LOW AND LOCKED CALL LIGHT IS IN REACH SKIN WARM AND DRY WOUND VAC FUNCTIONING AND PT IS SEEING TO ITS OPERATION
[2019-08-21 20:32] VITALS: BP 150/70
[2019-08-21 23:51] VITALS: BP 135/68
--- NOTE | 2019-08-22 01:16 | NUR ---
I have reviewed this patient and I concur with the Shift Assessment completed by the Licensed Practical Nurse today this shift.
[2019-08-22 04:30] VITALS: BP 126/57
[2019-08-22 06:11] LABS: BASOPHILS 0.2 % (0-2); EOSINOPHILS 4.1 % (0-7); HEMATOCRIT 37.8 % (42.0-54.0); HEMOGLOBIN 11.9 g/dL (13.5-17.5); IMMATURE GRANULOCYTES 0.4 % (0-5); MCH 29.2 pg (26.0-34.0); MCHC 31.5 g/dL (31.0-37.0); MCV 92.6 fL (80.0-100.0); MEAN PLATELET VOLUME 10.8 fL (7.4-10.4); MONOCYTES 9.6 % (2-11); NEUTROPHILS 66.7 % (40-80); PLATELET COUNT 258 10x3/uL (130-400); RBC 4.08 10x6/uL (4.20-6.10); RDW 15.6 % (11.5-14.5); WBC 8.4 10x3/uL (4.8-10.8)
[2019-08-22 06:35] LABS: ALBUMIN 2.2 g/dL (3.4-5.0); ANION GAP 15.6 mmol/L (8-16); BILIRUBIN - TOTAL 0.5 mg/dL (0.2-1.3); CALCIUM 7.9 mg/dL (8.5-10.1); CARBON DIOXIDE 22.3 mmol/L (21.0-32.0); MAGNESIUM - SERUM 1.2 mg/dL (1.8-2.4); POTASSIUM - SERUM 3.9 mmol/L (3.5-5.1); PROTEIN - SERUM 5.8 g/dL (6.4-8.2)
[2019-08-22 06:38] LABS: CREATININE - SERUM 1.9 mg/dL (0.6-1.3); PHOSPHOROUS 2.5 mg/dL (2.5-4.9)
--- NOTE | 2019-08-22 07:15 | NUR ---
PT RESTING IN BED, SHIFT ASSESSMENT PERFORMED. CALL LIGHT WITHIN REACH, DENIES ANY NEEDS AT THIS TIME, WILL CONT TO FOLLOW POC
[2019-08-22 09:13] VITALS: BP 120/55
[2019-08-22] MEDS ORDERED: MAG-OXIDE400 MG PO (11:40)
[2019-08-22 12:17] VITALS: BP 147/71
--- NOTE | 2019-08-22 12:32 | NUR ---
UPON ADMISSION PATIENT STATES THAT HE HAS HAD A FLU SHOT ALREADY.
--- NOTE | 2019-08-22 12:48 | MORECARE ---
CASE MANAGEMENT DISCHARGE SUMMARY PATIENT: REED COX UNIT: [id number] ADM DATE: 08/19/19 AGE: 63 : 55 SEX: M ROOM/BED: D.2133 AUTHOR: SIOBHAN ABREU PHYSICIAN: REFERRING PHYSICIAN: JOSÉ LUIS CORTES MD DATE OF SERVICE: 08/22/19 Discharge Plan Patient Name: REED COX Facility: [facility]:[place] : 1955 Planned Disposition: Home Anticipated Discharge Date: 08/22/19 Discharge Date: Expected LOS: 3 Initial Reviewer: [email or web address] Initial Review Date: 08/22/2019 Generated: 08/22/19 1:48 pm Coverage Notice Reviewer: [id number] Sabiha Vo Notice Issued Date-Time: 08/22/2019 12:25 Notice Type: IM Discharge Notice Notice Delivered To: Patient Relationship to Patient: Sleep Technologist Name: Delivery Method: HAND - Hand Delivered Nathaly Days: Prior Verbal Notification: Recipient Understood Notice: Yes Recipient Signature: Yes Med Rec Note Co-signed by Attending: Coverage Notice Comment: Reviewer: [email or web address] Sabiha Vo Notice Issued Date-Time: 08/22/2019 12:25 Notice Type: Patient Choice Letter Notice Delivered To: Patient Relationship to Patient: Sleep Technologist Name: Delivery Method: HAND - Hand Delivered Nathaly Days: Prior Verbal Notification: Recipient Understood Notice: Yes Recipient Signature: Yes Med Rec Note Co-signed by Attending: Coverage Notice Comment: [facility] Patient Name: REED COX Page 11327 at 1248 All edits/amendments must be made on the electronic document DICTATION DATE: 08/22/197 PARALEGAL LEGAL SECRETARY: JAKE 08/22/19 1247 RPT#: [id number] SD DATE: STATUS: ADM IN [address] [address] [place] [address] END OF REPORT
--- NOTE | 2019-08-22 13:07 | MORECARE ---
CASE MANAGEMENT DISCHARGE SUMMARY PATIENT: REED COX UNIT: [id number] ADM DATE: 08/19/19 AGE: 63 : 55 SEX: M ROOM/BED: D.2133 AUTHOR: LOIS,DOC PHYSICIAN: REFERRING PHYSICIAN: JOSÉ LUIS CORTES MD DATE OF SERVICE: 08/22/19 Discharge Plan Patient Name: REED COX Facility: [facility]:[place] : 1955 Planned Disposition: Home with Home Health Anticipated Discharge Date: 08/22/19 Discharge Date: Expected LOS: 3 Initial Reviewer: [email or web address] Initial Review Date: 08/22/2019 Generated: 08/22/19 2:07 pm DCPIA - Discharge Planning Initial Assessment Updated by SOHAM: Efrain Vo on 08/22/19 1:01 pm * Is the patient Alert and Oriented? Yes * How many steps to enter\exit or inside your home? RAMP * PCP DR. DURAN * Pharmacy [facility] * Preadmission Environment Home with Family * ADLs Independent * Equipment Cane CPAP Oxygen Walker Wound Vac * Other Equipment PORTABLE OXYGEN CONCENTRATOR - [facility] * List name and contact numbers for known caregivers / representatives who currently or will assist patient after discharge: YAMILEX COX, SPOUSE, * Verbal permission to speak to the caregivers and representatives has been obtained from the patient. N/A * Community resources currently utilized Home Health * Please name any agencies selected above. [facility] * Additional services required to return to the preadmission environment? No * Can the patient safely return to the preadmission environment? Yes * Has this patient been hospitalized within the prior 30 days at any hospital? No Coverage Notice Reviewer: [id number] Sabiha Vo Notice Issued Date-Time: 08/22/2019 12:25 Notice Type: IM Discharge Notice Notice Delivered To: Patient Relationship to Patient: Military Exchange Wireless Manager Name: Delivery Method: HAND - Hand Delivered Nathaly Days: Prior Verbal Notification: Recipient Understood Notice: Yes Recipient Signature: Yes Med Rec Note Co-signed by Attending: Coverage Notice Comment: Reviewer: [id number] Vo Notice Issued Date-Time: 08/22/2019 12:25 Notice Type: Patient Choice Letter Notice Delivered To: Patient Relationship to Patient: [employer] Exchange Wireless Manager Name: Delivery Method: HAND - Hand Delivered Nathaly Days: Prior Verbal Notification: Recipient Understood Notice: Yes Recipient Signature: Yes Med Rec Note Co-signed by Attending: Coverage Notice Comment: [facility] Last DP export: 08/22/19 11:48 Patient Name: REED COX Page [id number] at 1307 All edits/amendments must be made on the electronic document DICTATION DATE: 08/22/19 1306 SENIOR OFFICER: JAKE 08/22/19 1306 RPT#: [id number] DC DATE: STATUS: ADM IN [facility] [address] [place] [address] END OF REPORT
--- NOTE | 2019-08-22 13:17 | MORECARE ---
CASE MANAGEMENT DISCHARGE SUMMARY PATIENT: REED COX UNIT: [id number] ADM DATE: 08/19/19 AGE: 63 : 55 SEX: M ROOM/BED: D.3223 AUTHOR: LOIS,DOC PHYSICIAN: REFERRING PHYSICIAN: JOSÉ LUIS CORTES MD DATE OF SERVICE: 08/22/19 Discharge Plan Patient Name: REED COX Facility: [facility]:[place] : 1955 Planned Disposition: Home with Home Health Anticipated Discharge Date: 08/22/19 Discharge Date: Expected LOS: 3 Initial Reviewer: [id number] Initial Review Date: 08/22/2019 Generated: 08/22/19 2:16 pm Comments DCP- Discharge Planning Updated by [email or web address]: Efrain Vo on 08/22/19 12:[address] Patient Name: REED COX Admission Status: ER Accout number: [id number] Admission Date: 08-19-2019 : 1955 Admission Diagnosis: Attending: JOSÉ LUIS CORTES Current LOS: 3 Anticipated DC Date: 08-22-2019 Planned Disposition: Home with Home Health Primary Insurance: [employer] ADV PLANNED EXTERNAL PROVIDER: [employer] [facility] Discharge Planning Comments: CM RECEIVED DISCHARGE ORDER, MET WITH PT IN ROOM TO DISCUSS DISCHARGE PLANNING AND NEEDS. PT REPORTS LIVING AT HOME INDEPENDENTLY WITH HIS SPOUSE. PT HAS CPAP, HOME OXYGEN AND PORTABLE OXYGEN CONCENTRATOR, CANE AND WALKER FROM [employer]. PT HAS HOME HEALTH FOR WOUND VAC CHANGES FROM [facility]. CM DISCUSSED AVAILABILITY OF HOME HEALTH, REHAB SERVICES AND MEDICAL EQUIPMENT. PT DENIES DISCHARGE NEEDS, REPORTS HIS WILL PICK HIM UP FOR DISCHARGE HOME. IMPORTANT MESSAGE FROM MEDICARE PROVIDED AND EXPLAINED. CHOICE FOR [facility] SIGNED. PT STATES HIS HOME VAC DRESSING HAS NOT BEEN CHANGED SINCE THURSDAY, PRIOR TO HOSPITAL ADMISSION. CM NOTIFIED CERTIFIED RETINAL ANGIOGRAPHER NURSE AND WOUND CARE NURSE. CM CALLED [facility], , SPOKE TO AMANDA WHO VERIFIED THAT PT IS ACTIVE WITH [employer]; CM ADVISED THAT PT STATES HIS WOUND VAC DRESSING HAS NOT BEEN CHANGED SINCE ADMISSION LAST THURSDAY. REFERRAL PROVIDED, PT PLACED ON SCHEDULE FOR RESUMPTION. CM FAXED REFERRAL AND DISCHARGE INFORMATION TO [employer] AT [phone]. UX DESIGN LEAD NURSE NOTIFIED. Battery Assembler Plastic: Efrain Vo DCPIA - Discharge Planning Initial Assessment Updated by [email or web address]: Efrain Vo on 08/22/19 1:01 pm * Is the patient Alert and Oriented? Yes * How many steps to enter\exit or inside your home? RAMP * PCP DR. DURAN * Pharmacy [facility] * Preadmission Environment Home with Family * ADLs Independent * Equipment Cane CPAP Oxygen Walker Wound Vac * Other Equipment PORTABLE OXYGEN CONCENTRATOR - [facility] * List name and contact numbers for known caregivers / representatives who currently or will assist patient after discharge: YAMILEX COX, SPOUSE, * Verbal permission to speak to the caregivers and representatives has been obtained from the patient. N/A * Community resources currently utilized Home Health * Please name any agencies selected above. [facility] * Additional services required to return to the preadmission environment? No * Can the patient safely return to the preadmission environment? Yes * Has this patient been hospitalized within the prior 30 days at any hospital? No External Providers External Provider: [employer] Next Contact Date: 08/22/2019 Service Request Date: Service Type: Resolution: Reviewer: Comments: Coverage Notice Reviewer: [email or web address] Sabiha Vo Notice Issued Date-Time: 08/22/2019 12:25 Notice Type: IM Discharge Notice Notice Delivered To: Patient Relationship to Patient: Nurse Practitioner Name: Delivery Method: HAND - Hand Delivered Nathaly Days: Prior Verbal Notification: Recipient Understood Notice: Yes Recipient Signature: Yes Med Rec Note Co-signed by Attending: Coverage Notice Comment: Reviewer: [id number] Sabiha Vo Notice Issued Date-Time: 08/22/2019 12:25 Notice Type: Patient Choice Letter Notice Delivered To: Patient Relationship to Patient: Nurse Practitioner Name: Delivery Method: HAND - Hand Delivered Nathaly Days: Prior Verbal Notification: Recipient Understood Notice: Yes Recipient Signature: Yes Med Rec Note Co-signed by Attending: Coverage Notice Comment: [facility] Last DP export: 08/22/19 12:07 Patient Name: REED COX Page [phone] at 1317 All edits/amendments must be made on the electronic document DICTATION DATE: 08/22/19 1316 DATASTAGE CONSULTANT: JAKE 08/22/19 1316 RPT#: [id number] DC DATE: STATUS: ADM IN [facility] [address] [place] [address] END OF REPORT
--- NOTE | 2019-08-22 14:13 | NUR ---
WOUND VAC DRESSING CHANGE DATE: WOUND LOCATION: LEFT ABD WOUND MEASUREMENTS:5CM X 5CM X 1CM WOUND DESCRIPTION: RED (PERIWOUND IS RED/IRRITATED) MUSCLE, TENDON, OR BONE EXPOSED? NO DRAINAGE AMOUNT/DESCRIPTION: SMALL SEROSANGUINOUS ODOR? NONE NOTED TYPE OF SPONGE USED AND AMOUNT: BLACK SETTINGS: -125MMHG LOW CONTINUOUS TEACHING: USE STOMA POWDER ALONG WITH SKIN PROTECTANT AROUND PERIWOUND TO HEAL UP REDNESS/IRRITATION PT TOLERATED WELL.
--- NOTE | 2019-08-22 16:14 | NUR ---
DISCHARGE INSTRUCTIONS REVIEWED WITH PT AND ALL QUESTIONS ANSWERED. PIV REMOVED WITH CATHETER TIP INTACT. PT IS WAITING ON HIS RIDE
--- NOTE | 2019-08-22 16:29 | NUR ---
PT LEFT WITH
== END 2019-08-22 16:29 | disposition home health service (06) | DRG 682 ==
LOC: D.ER 18:17 → D.M2 19:26
PROVIDERS: Family Medicine; ADMIT Internal Medicine Nephrology; ATTEND Internal Medicine Nephrology
DX: N17.9 Acute kidney failure, unspecified (principal); I50.23 Acute on chronic systolic (congestive) heart failure; T81.42XA Infection following a procedure, deep incisional surgical site, initial encounter; J96.11 Chronic respiratory failure with hypoxia; J44.1 Chronic obstructive pulmonary disease with (acute) exacerbation; I13.0 Hypertensive heart and chronic kidney disease with heart failure and stage 1 through stage 4 chronic kidney disease, or unspecified chronic kidney disease; E83.39 Other disorders of phosphorus metabolism; E83.42 Hypomagnesemia; E78.5 Hyperlipidemia, unspecified; N18.9 Chronic kidney disease, unspecified; E11.22 Type 2 diabetes mellitus with diabetic chronic kidney disease; F41.8 Other specified anxiety disorders; I25.10 Atherosclerotic heart disease of native coronary artery without angina pectoris; F10.10 Alcohol abuse, uncomplicated; E11.51 Type 2 diabetes mellitus with diabetic peripheral angiopathy without gangrene

== ENCOUNTER → 2020-04-20 08:12 | Outpatient (CLI) | payer MEDICARE, MEDICAID ==
[2019-12-22 08:17] VITALS: BMI 41.6
[~2020-04-20 08:12] MED LIST changes: +FUROSEMIDE40 MG; +K-DUR20 MEQ PO; +LOKELMA10 GM PO; +MAG-OXIDE400 MG PO; +METOLAZONE2.5 MG PO
== END | disposition home or self-care (01) ==
LOC: D.HCCARDIO 08:12
PROVIDERS: ATTEND Internal Medicine Cardiovascular Disease
DX: I25.10 Atherosclerotic heart disease of native coronary artery without angina pectoris (principal)

== ENCOUNTER → 2020-08-16 08:08 | Outpatient (CLI) | payer MEDICARE, MEDICAID ==
[2019-12-22 08:17] VITALS: BMI 41.6
[2020-08-16 09:04] LABS: CREATININE - SERUM 3.3 mg/dL (0.6-1.3)
== END | disposition home or self-care (01) ==
LOC: D.CT 08:08
PROVIDERS: ATTEND Surgery
DX: K43.2 Incisional hernia without obstruction or gangrene (principal)

== ENCOUNTER → 2021-02-21 13:11 | Outpatient (CLI) | payer MEDICARE, MEDICAID ==
[~2021-02-21 13:11] MED LIST changes: +COREG12.5 MG PO; +DULERA 200 MCG8.8 GM INH; +ELIQUIS5 MG PO; +ENTRESTO 24 MG1 EACH PO; +FEXOFENADINE HC60 MG PO; +FOLIC ACID1 MG PO; +HUMALOG 30100 UNITS/ SC; +IPRAT-ALBUT 0.5-3 ML UPD; +LANTUS INS100 UNITS/ SC; +MUCINEX DM ER1 EAC1 PO; +OMNICEF300 MG PO; +PULMICORT0.5 MG/21 UPD; +TESSALON PERLE100 MG PO; +VENTOLIN HFA [SP8 GM INH; +ZITHROMAX250 MG PO
== END | disposition home or self-care (01) ==
LOC: D.LAB 13:11
PROVIDERS: ATTEND Internal Medicine Pulmonary Disease
DX: Z11.52 Encounter for screening for COVID-19 (principal)

== ENCOUNTER → 2021-02-26 15:20 | Outpatient (CLI) | payer MEDICARE, MEDICAID | END | disposition home or self-care (01) | LOC: D.RT 15:00 | PROVIDERS: ATTEND Internal Medicine Pulmonary Disease | DX: R06.00 Dyspnea, unspecified (principal) ==